=== PATIENT | female | born 1975 | race Caucasian/White ===

== ENCOUNTER 2017-07-09 16:30 | Emergency (ER) | payer OTHER, SELFPAY ==
[2017-07-09 16:32] VITALS: BP 168/96; PULSE 112; RESP 24; TEMP 36.6; O2SAT 97; BMI 27.1
--- NOTE | 2017-07-09 16:43 | CT_ITS ---
STUDY: CT ABDOMEN AND PELVIS WITH CONTRAST REASON FOR EXAM: Female, 41 years old. Abdominal pain RADIATION DOSAGE (If Supplied By Facility): CTDIvol = ( 16.31 ) mGy, DLP = ( 654.50 ) mGycm TECHNIQUE: Transaxial images were obtained from the dome of the diaphragm to the symphysis pubis without oral contrast. 100 ml of Isovue 300 contrast was administered. Sagittal and coronal images were reconstructed. Individualized dose optimization techniques were used for this CT. COMPARISON: None. FINDINGS: There is minor atelectasis within the dependent portion of the lungs.. The visualized portions of the heart are within normal limits. Mildly prominent fatty infiltrated liver without mass or bile duct dilatation. Gallbladder not visualized consistent with prior cholecystectomy.. Normal spleen. Normal pancreas. Normal bilateral adrenal glands. Multiple nonobstructing bilateral renal calculi. No evidence for renal mass.. Postsurgical changes in the right lower quadrant status post resection of the descending colon. There is diffuse fecal retention within much of the colon. No evidence for acute inflammatory changes at this time. Normal visualized stomach. Normal small intestine. Normal colon. The appendix is visualized and appears normal. Normal abdominal aorta. Normal inferior vena cava. Normal retroperitoneum. Incompletely distended mildly thick-walled bladder likely of no significance. Uterus not visualized consistent with hysterectomy Small right ovarian cyst measuring approximately 1.6 cm. . Large left adnexal mass measuring approximate 5.5 x 4.4 cm demonstrating multicystic component. Normal abdominal wall. Normal osseous structures. CT/Abdomen/Pelvis W IV Cont ONLY IMPRESSION: Postsurgical changes status post cholecystectomy resection of the right colon and hysterectomy. No evidence for acute inflammatory changes at this time.. There is a small right ovarian cyst and a large complex multicystic left ovary which is new finding since prior study. Would recommend pelvic sonogram for further evaluation Other findings as above Electronically Signed: Cristian Restrepo MD at 18:31 EDT , Service support ,
[2017-07-09] MEDS: HYDROmorphone 1 MG/ML Syringe IV ×2 (16:57→19:28)
[2017-07-09] MEDS: Ondansetron 4 MG/2 ML Vial IV (16:57)
[2017-07-09] MEDS: 0.9% Normal Saline 1,000 ML 1000 ML IV (16:58)
[2017-07-09 17:22] LABS: Absolute Lymphocyte Count 2.06 X10^3/ul (0.83-4.51); Absolute Neutrophil Count 3.5 X10^3/uL (2.0-7.7); Basophil# 0.01 X10^3/uL; Basophil% 0.2 % (0-1); Eosinophil# 0.09 X10^3/uL; Eosinophils% 1.4 % (0-5); Hematocrit 40.4 % (37-47); Hemoglobin 13.5 g/dl (12.0-15.0); Lymphocyte # 2.06 X10^3/ul (4.0); Lymphocyte % 32.6 % (19-41); Mean Corp Hgb Conc 33.4 g/gl (32-36); Mean Corpuscular Volume 92.9 fL (81-99); Mean Platelet Vol. 11.4 fl (6.2-12.0); Monocyte# 0.67 X10^3/uL; Monocyte% 10.6 % (0-10); Neutrophil # 3.48 X10^3/uL (2.7-7.7); Platelet Count 221 K/mm3 (150-450); RBC Distribution Width CV 13.2 % (11.6-14.6); RBC Distribution Width SD 44.5 fl (35.1-43.9); Red Blood Count 4.35 M/mm3 (4.2-5.4); White Blood Count 6.3 K/mm3 (4.4-11.0)
[2017-07-09 17:28] LABS: POSITIVE COUNT NO; POSITIVE DIFFERENTIAL NO; POSITIVE MORPHOLOGY NO
[2017-07-09 17:31] LABS: ALB/GLOB Ratio 1.1 RATIO (0.9-2.4); AST(SGOT) 17 U/L (15-37); Alanine Aminotransfer ALT/SGPT 20 U/L (13-56); Alkaline Phosphatase 73 U/L (45-117); Anion Gap 9 (5-15); BUN 11 mg/dL (7-18); BUN/Creat Ratio 13.5 RATIO (10-20); Calcium,Total 8.7 mg/dL (8.5-10.1); Chloride 106 mmol/L (98-107); Creatinine, Serum 0.81 mg/dL (0.55-1.02); EST Glomerular Filtration Rate 82 mL/min (>60); Est Glom Filt Rate - Afr Amer 99 mL/min (>60); Globulin 3.5 g/dL (2.2-4.2); Glucose 99 mg/dL (74-106); Protein, Total 7.5 g/dL (6.4-8.2); Sodium Level 139 mmol/L (136-145)
[2017-07-09 17:38] VITALS: BP 125/71; PULSE 62; RESP 16; O2SAT 97
--- NOTE | 2017-07-09 17:41 | ED.VISSUMM ---
- ER Visit Summary Date of Service: 07/09/17 Chief Complaint: Sudden onset abdominal pain History of Present Illness: The patient is a 41 F presents to the emergency department with sudden onset abdominal pain. Patient states that she had a move her bowels. She states that shortly after, she had a sharp stabbing pain just in the suprapubic area. She states she cannot get comfortable. She states she has never had pain like this before. The patient does have a history of Crohn's disease. She did have Remicade infusion last week. She states that she has had some mild diarrhea. She denies any vomiting. She denies any fevers or chills. There is been no blood in the bowel movements. She states this is very different than pain that she has had with her Crohn's. Physical Examination: Vital signs reviewed General: Well-nourished, well-developed Head: Normocephalic, atraumatic Eyes: Pupils equal and reactive, extraocular muscles intact Neck, supple, no lymphadenopathy Heart: Regular rate and rhythm Respiratory: No distress, clear bilaterally Abdomen: Soft, tender in the suprapubic area without rebound or guarding, nondistended, no peritoneal signs Back: Nontender Extremities: Nontender, no edema, no cords Skin: Normal color no rash Neuro: Alert and oriented, no focal or lateralizing deficits Test Results: [] Emergency Department Course and Treatment: IV was established. The patient was given Dilaudid and had almost complete resolution of her abdominal pain. With her history, I did obtain a CT of her abdomen and pelvis. Prior to the read, I did review it myself. She did appear to have a large left ovarian cyst. I wanted to rule out torsion. The patient was sent for ultrasound. Ultrasound shows normal vascular flow. There is no evidence of torsion. It is a 6 x 5 x 5 cm complex cyst. The patient has seen Dr. Ang Trinidad in the past. I did discuss the case with her. The patient is going to be seen tomorrow in the office at 1240. She will be prescribed analgesics for pain control. I did retirement plan counselor the patient that if her pain returns at any time, she needs to return immediately to rule out torsion. She is comfortable with this plan of care and will be discharged home. Treatment Plan: [] Disposition: Discharge Impression: 1. Complex left ovarian cyst This note was generated with Dragon dictation software. It may contain incorrect words, spelling, and punctuation that were not noted in review of the chart prior to signing ED Disposition - Plan for ED Patient: Disposition: Home or Assisted Living Chief Complaint: Abd Pain Instructions: ED Cyst Ovarian Prescriptions: Hydrocodone Bitart/Apap 5-325 [[place] 5/325] 1 tab PO Q4H PRN PRN 3 Days #12 tab PRN Reason: Pain Referrals: Manda Morales MD [STAFF PHYSICIAN] - Additional Instructions: Appointments tomorrow at 1240
--- NOTE | 2017-07-09 17:42 | ED.RN ---
PT STATES SHE HAS HAD HYSTERECTOMY, NO CHANCE OF , HISTORY UPDATED TO REFLECT HYSTERECTOMY, MD NOTIFIED.
[2017-07-09 17:50] LABS: Lactic Acid 0.7 mmol/L (0.4-2.0)
[2017-07-09 18:24] VITALS: BP 138/74; PULSE 72; RESP 15; O2SAT 98
--- NOTE | 2017-07-09 18:27 | US_ITS ---
STUDY: ULTRASOUND TRANSVAGINAL CLINICAL: Female, 41 years old. Left lower quadrant pain and ovarian mass TECHNIQUE: Transvaginal COMPARISON: CT of abdomen and pelvis on July 09, 2017 FINDINGS: Uterus not visualized status post hysterectomy Normal right ovary, measuring 3.6 x 3 x 2.7 cm. There is a cyst measuring 2 x 1.7 x 1.5 cm. Enlarged left ovary, measuring 6.6 x 5.8 x 5.1 cm. There are multiple cysts the largest measuring 4.6 x 3.3 x 2.8 cm demonstrating septations and solid nodular component There is no free fluid in the pelvis. US/Transvaginal Non- IMPRESSION: Large left ovary demonstrating multiple cysts one of which demonstrates a large solid component. Possibility of neoplasm is not excluded. This may be better assessed with contrast-enhanced MRI if indicated Electronically Signed: Cristian Restrepo MD at 20:20 EDT , Service support ,
[2017-07-09 18:35] LABS: Bacteria 0 SEEN /hpf (None Seen); Mucous, Urine 0 SEEN /hpf (<or=2+); Red Blood Cells-Urine 0 SEEN /hpf (0-5); White Blood Cells 0 SEEN /hpf (0-5)
[2017-07-09 19:02] LABS: Color, Urine Yellow (Yellow); Glucose, Dipstick Normal (Normal); Internal QC Validated? YES +Cl - CLEAR BKGD; Ketone-Dipstick Negative (Negative); Leukocyte Esterase-Dipstick Negative /ul (Negative); Nitrite-Dipstick Negative (Negative); Occult Blood-Urine 10 /ul (Negative); Pregnancy, Urine Negative Negative; Protein-Dipstick Negative (Negative); Urine Bilirubin Dipstick Negative (Negative); Urine Clarity Clear (Clear); Urine Urobilinogen Normal (Normal)
[2017-07-09 19:08] LABS: Squamous Epithelial Cells - UA 0-5 SEEN /hpf (5-10)
[2017-07-09 19:33] VITALS: BP 111/67; PULSE 67; RESP 16; O2SAT 95
--- NOTE | 2017-07-09 20:02 | ED.RN ---
PT FEELS ITCHY AFTER SECOND DOSE MD ESPERANZA NOTIFIED, BENADRYL ORDERED.
[2017-07-09] MEDS: DiphenhydrAMINE 50 MG/ML Syringe 25 MG IV (20:05)
[2017-07-09 21:27] VITALS: BP 115/70; PULSE 58; RESP 18; O2SAT 96
[2017-07-09] MEDS: HYDROcodone Bitartrate/Apap 5/325 Tablet PO (21:29)
[2017-07-09] MEDS: Ondansetron ODT 4 MG Tablet PO (21:30)
== END 2017-07-09 21:34 | disposition home or self-care (01) ==
LOC: ED 18:48
PROVIDERS: Emergency Provider Emergency Medicine; Family Provider Family Medicine; PCP Family Medicine
DX: N83.202 Unspecified ovarian cyst, left side (principal); K50.90 Crohn's disease, unspecified, without complications
CPT/HCPCS: 74177; 76830; 80053; 81001; 81025; 83605; 85025; 93976; 96361; 96374; 96375; 96376; 99284; J7030; Q9967; A4216; J2405

== ENCOUNTER → 2017-07-10 14:05 | Outpatient (CLI) | payer OTHER, SELFPAY ==
[2017-07-10 17:20] LABS: Absolute Lymphocyte Count 2.18 X10^3/ul (0.83-4.51); Absolute Neutrophil Count 2.3 X10^3/uL (2.0-7.7); Basophil# 0.02 X10^3/uL; Basophil% 0.4 % (0-1); Eosinophil# 0.13 X10^3/uL; Eosinophils% 2.5 % (0-5); Hematocrit 39.2 % (37-47); Hemoglobin 12.6 g/dl (12.0-15.0); Lymphocyte # 2.18 X10^3/ul (4.0); Lymphocyte % 42.7 % (19-41); Mean Corp Hgb Conc 32.1 g/gl (32-36); Mean Corpuscular Hgb 30.7 pg (27.0-32.0); Mean Corpuscular Volume 95.4 fL (81-99); Mean Platelet Vol. 11.8 fl (6.2-12.0); Monocyte# 0.51 X10^3/uL; Neutrophil # 2.26 X10^3/uL (2.7-7.7); Neutrophil % 44.2 % (47-70); Platelet Count 205 K/mm3 (150-450); RBC Distribution Width CV 13.5 % (11.6-14.6); RBC Distribution Width SD 46.8 fl (35.1-43.9); Red Blood Count 4.11 M/mm3 (4.2-5.4); White Blood Count 5.1 K/mm3 (4.4-11.0)
[2017-07-10 18:16] LABS: POSITIVE COUNT NO; POSITIVE DIFFERENTIAL NO; POSITIVE MORPHOLOGY NO
[2017-07-13 11:46] LABS: Cancer Antigen 125 19.2 U/mL (0.0-38.1)
== END ==
PROVIDERS: Family Provider Family Medicine; PCP Family Medicine; Visit Provider Obstetrics & Gynecology
DX: N83.209 Unspecified ovarian cyst, unspecified side (principal)
CPT/HCPCS: 36415; 85025; 86304

== ENCOUNTER 2017-07-16 14:13 | Day surgery (SDC) | payer OTHER, SELFPAY ==
[2017-07-16] VITALS (8 sets, daily range): BP systolic 92–144; BP diastolic 59–81; PULSE 56–68; RESP 16–18; TEMP 36.3–36.9; O2SAT 92–100; BMI 26.6
--- NOTE | 2017-07-16 | FLU_PTH ---
PATIENT: DEVIKA WINN [place] [facility] [facility] [place][id number] AGE/SX: 41/F ROOM: RE07/16/[address]: Dr. Manda Morales MD : 1975 BED: DIS: 07/16/2017 SPEC #: [id number] RECD: 07/17/17 09:51 STATUS: TALIA KEVEN #: [id number] SHREYA: 07/16/17 00:[address]: Manda Morales DEPT: CYTOLOGY RECD BY: Marcio Garcia ENTERED: 07/17/17 09:52 SP TYPE: Fluid OTHR DR: Dr. Lindsey Bain MD Tissues: Pelvis, NOS Procedures: Pap Stain (control) Special Stain Group II Surgery Specimen Level IV Cell Block Cytospin Fluid HEADER OPERATION: Laparoscopic salpingo-oophorectomy, lysis of adhesions PRE-OP DIAGNOSIS: Left adnexal mass TISSUE SUBMITTED: Cell washings/fluid for cytology DIAGNOSIS CYTOLOGY Left adnexal mass, cell washings for cytology (cytospin and cell block): Negative for malignant cells. AM:niharika 07/18/17 COMMENT The specimen contains benign mesothelial cells. CYTOLOGY STUDY Slides are reviewed. CYTOLOGY GROSS Received is 10 ml of red cloudy fluid labeled with the patient's name and and designated per the requisition as cell washings. Submitted for cytology preparation including cell block. / 07/17/17 TC:5 CPT: 48489, 90614
--- NOTE | 2017-07-16 05:06 | HP.PCM_ITS ---
- Problem List (1) Acute pelvic pain, female Status: Acute (2) Complex ovarian cyst Status: Acute History and Physical Date of Admission: 07/16/17 Vital Signs 07/10/17 Height 5 ft 6 in 07/10/17 Weight: 168 lb 2 oz 07/10/17 Body Mass Index (BMI) 27.1 07/10/17 Blood Pressure 102/47 Intake Visit Reasons: ER follow up Accompanied by: Is patient in pain?: Yes Pain scale (1-10): 5 Allergies No Known Allergies Allergy (Verified 07/15/17 09:00) Medications Infliximab [Remicade] 400 mg IV QMONTH 07/16/15 [History Confirmed 07/15/17] Azathioprine [Imuran] 50 mg PO DAILY@0800 02/01/16 [History Confirmed 07/15/17] Chlordiazepoxide/Clidinium Br [Librax Capsule] 1 ea PO Q6H PRN PRN 07/09/17 [ History Confirmed 07/15/17] Colestipol Tablet [Colestid Tablet] 2 gm PO BID 07/09/17 [History Confirmed ] Ondansetron [Zofran Odt] 4 mg PO Q8H PRN PRN 07/09/17 [History Confirmed ] cyanocobalamin (vit B-12) 1,000 mcg/mL injection kit 1,000 mcg IM ONCE 07/10/17 [History Confirmed 07/15/17] oxycodone-acetaminophen 5 mg-325 mg tablet 1 tab PO Q4H PRN #20 tab 07/10/17 [ Rx Confirmed 07/15/17] Post menopausal: No Patient : No : No PFSH Medical History Crohn disease (Chronic) Abnormal Pap smear of cervix (Acute) ileum resection (Resolved) Surgical History Hx of lithotripsy (Resolved) S/P (Resolved) S/P appendectomy (Resolved) S/P cholecystectomy (Resolved) S/P partial hysterectomy (Resolved) Family History Brother Lymphoma Father Cancer Social History Smoking Status: Never smoker alcohol intake: never substance use type: does not use caffeine: Yes what type of physical activity do you participate in: none seatbelt use: always do you feel safe at home: Yes 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 she was seen in the ER and was diagnosed with a complex ovarian cyst that has normal doppler flow. her pain has limited her activities and continues to bother her. Pregancy History 4 Elective abortions Hx Para 4 Spontaneous abortions Hx # Term Pregnancies Ectopic pregnancies Hx # Pregnancies Multiple births # of living children Past Pregnancies Del. Date Name GA/Weeks Outcome Route Bth Weight Infant Gen Labor Lgth Anesthesia Del Locatn Provider FOB Unknown Daina-1996 Unknown Margoth-1998 Unknown Sid-1999 Unknown Lotus-2007 ROS Const Constitutional: Denies poor appetite, headache(s), fever(s), increased appetite , weight gain, weight loss or fatigue Cardio Card: Denies chest pain Resp Resp: Denies dyspnea or cough GI GI: Reports as per HPI, nausea and abdominal pain; denies vomiting or constipation : Reports as per HPI; denies urinary urgency, vaginal discharge, urinary frequency, vaginal itching, vaginal odor, vaginal dryness, urinary incontinence, urinary hesitancy, difficulty urinating, painful urination or nipple discharge Skin Skin/Breast: Denies breast lump, breast pain, breast skin changes, nipple discharge or change in hair Exam Const General: cooperative, healthy appearing, comfortable, no acute distress, well developed Nutritional Appearance: average body habitus Orientation: alert [facility] Head: normal to inspection, normocephalic Neck Neck: normal visual inspection, trachea midline Thyroid: thyroid normal Resp Effort & Inspection: normal respiratory effort GI Inspection: normal to inspection, non-distended Palpation: soft, no hepatosplenomegaly, tender Skin General: no rashes or lesions noted Assessment & Plan Problems 1. Complex ovarian cyst N83.299 2. Acute pelvic pain, female R10.2 Plan discussed laparoscopic removal of the ovarian cyst after checking a CA 125 to confirm supsicion of benign etiology. reviewed torsion precautions. discussed surgical risks including risks of anesthesia, infection, bleeding, injury to bowel, bladder or blood vessels, and patient wishes to proceed with surgery. Medications New: oxycodone-acetaminophen 5-325 mg (Percocet) 1 tab PO Q4H PRN pain Coding Level of Care Code Off vis,est,level 4 Diagnoses Complex ovarian cyst N83.299 Acute pelvic pain, female R10.2 07/16/17- i have seen the patient and reviewed the h and p and there are no clinically significant updates
[2017-07-16 14:39] LABS: Internal QC Validated? YES +Cl - CLEAR BKGD; Pregnancy, Urine Negative Negative
--- NOTE | 2017-07-16 15:45 | OV_PTH ---
PATIENT: DEVIKA WINN LOC: [facility] – [place] U#:[id number] AGE/SX: 41/F ROOM: RE07/16/[address]: Dr. Manda Morales MD : 1975 BED: DIS: 07/16/2017 SPEC #: [id number] RECD: 07/17/17 09:51 STATUS: TALIA MILLERCinda #: [id number] SHREYA: 07/16/17 15:[address]: Manda Morales DEPT: SURGICAL PATHOLOGY RECD BY: Marcio Garcia ENTERED: 07/17/17 09:51 SP TYPE: OVARY OTHR DR: Dr. Lindsey Bain MD Tissues: Left ovary Procedures: Surgery Specimen Level V HEADER OPERATION: Laparoscopic salpingo-oophorectomy, lysis of adhesions PRE-OP DIAGNOSIS: Left adrenal mass TISSUE SUBMITTED: Left tube and ovary MICROSCOPIC DIAGNOSIS Left tube and ovary, salpingo-oophorectomy: Serous cystadenofibroma. Tubo-ovarian adhesions and benign paratubal cyst. AM:niharika 07/18/17 MICROSCOPIC DESCRIPTION Slides are reviewed. GROSS DESCRIPTION Received in fixative is one container labeled with the patient's name and designated left tube and ovary. The specimen consists of a smooth, glistening, cystic ovary measuring 4.7 x 3.5 x 2.2 cm. Adherent to this is what appears to be a portion of fallopian tube measuring 4 cm in length and 0.8 cm in average diameter. The entire external surface of the specimen is inked. Serial sections reveal multiple cysts ranging in size from 0.2 to 2.2 cm and containing clear fluid. The fallopian tube contains a Filshie-type clip that is intact. Erisa Attorney sections are submitted in four cassettes. / AM:niharika 07/17/17 TC:5 [facility]: [id number]
[2017-07-16] MEDS: Bupivacaine 0.25% 30 ML Vial (16:42)
--- NOTE | 2017-07-16 17:08 | PCM.DC.TUB ---
Discharge Diet: No Restrictions - Increase fluid intake for the next 48 hours. Discharge Activity: Return to Normal Activity, May Drive - when you are no longer taking narcotic pain medications., May Shower, May Take a Tub Bath - in 7 days Additional Activity Instructions:: Ambulate often the next week after surgery. Nothing in the vagina for 5 days. Call your doctor if your incision/area has: Continuous Slow Oozing, Sudden Increased Bleeding, Increased Pain/ Swelling, Increased Redness, Foul Smelling Discharge Call your doctor if you observe: Fever of 101 or Higher Allergies/Adverse Reactions: Allergies No Known Allergies Allergy (Verified 07/15/17 09:00) Medications to take at Discharge Infliximab [Remicade] 400 mg IV QMONTH 07/16/15 Azathioprine [Imuran] 50 mg PO DAILY@0800 02/01/16 Chlordiazepoxide/Clidinium Br [Librax Capsule] 1 ea PO Q6H PRN PRN 07/09/17 Colestipol Tablet [Colestid Tablet] 2 gm PO BID 07/09/17 Ondansetron [Zofran Odt] 4 mg PO Q8H PRN PRN 07/09/17 cyanocobalamin (vit B-12) 1,000 mcg/mL injection kit 1,000 mcg IM ONCE 07/10/17 oxycodone-acetaminophen 5 mg-325 mg tablet 1 tab PO Q4H PRN #20 tab 07/10/17 Oxycodone HCl/Acetaminophen [Percocet 5-325] 1 - 2 tablet PO Q4H PRN PRN #15 tablet 07/16/17 The following prescriptions were given: Oxycodone HCl/Acetaminophen [Percocet 5-325] 1 - 2 tablet PO Q4H PRN PRN #15 tablet PRN Reason: Pain Primary Care Physician: Lindsey Bain MD [Primary Care Provider] - Please Follow Up With: Manda Morales MD - [phone]
--- NOTE | 2017-07-17 04:38 | PCM.OPRPT ---
Problem List (1) Acute pelvic pain, female Status: Acute (2) Complex ovarian cyst Status: Acute Report of Operation Date of Procedure: 07/16/17 Pre-Operative Diagnosis: left complex ovarian cyst acute female pelvic pain Post-Operative Diagnosis: same severe adhesions Surgery/Procedure Performed:: laparoscopic lysis of adhesions left salpingooophorectomy Description of Surgical Findings:: omental to anterior abdominal wall adhesions, epiploic to vaginal cuff adhesions, sigmoid-left ovarian adhesions, ovarian-pelvic side wall adhesions. metal fabricator welder: Therese Alvarado Type of Anesthesia:: General Specimen's removed: left fallopian tube and ovary Estimated Blood Loss (mL): minimal Fluids Replaced: crystalloid Description of Procedure: Patient was taken in the operating room and was placed under general anesthesia was prepped and draped in normal sterile fashion in the dorsal lithotomy position. Bladder was drained of clear urine and SCDs were on preoperatively. Uterus was sounded and a uterine manipulator was placed after dilating. Attention was then paid to the abdominal portion of the procedure and palmers point was identified after an og tube was placed and stomach emptied, and the area was injected with Marcaine and after a 5 mm incision was made and the Veress needle was entered into the abdomen confirmed to be intra-abdominal with a low opening pressure of less than 5 mmHg. Abdomen was insufflated with CO2 gas and a 5 mm optical trocar was placed under direct visualization. A right and left lower quadrant 5 mm port was placed under direct visualization. severe omental to anterior abdominal wall adhesions were noted and taken down with the ligasure device. washings collected the left ovary was freed from all adhesions with the ureter visualized to be inferolateral to the areas of ligation. see operative findings for additional description. vaginal cuff to epiploic adhesions were taken down bluntly with hydrodissection and the ligasure device. The IP ligament was ligated with the ligasure device. remaining attachment of the ovary to the side wall was removed. ovary placed in a bag through an enlarged llq port site and removed without complication. fernando hernandez used to close the fascial port site of the llq incision. All instruments removed from the abdomen after gas was desufflated. Port sites were closed with 3-0 Monocryl Steri's and op sites were applied. All instruments removed from the vagina and patient was awoken and taken recovery in stable condition. Grafts/Implants Used: jose d
--- NOTE | 2017-07-17 04:55 | OP.PCM_ITS ---
Problem List (1) Acute pelvic pain, female Status: Acute (2) Complex ovarian cyst Status: Acute Report of Operation Date of Procedure: 07/16/17 Pre-Operative Diagnosis: left complex ovarian cyst acute female pelvic pain Post-Operative Diagnosis: same severe adhesions Surgery/Procedure Performed:: laparoscopic lysis of adhesions left salpingooophorectomy Description of Surgical Findings:: omental to anterior abdominal wall adhesions, epiploic to vaginal cuff adhesions , sigmoid-left ovarian adhesions, ovarian-pelvic side wall adhesions. oncology nurse navigator: Therese Alvarado Type of Anesthesia:: General Specimen's removed: left fallopian tube and ovary Estimated Blood Loss (mL): minimal Fluids Replaced: crystalloid Description of Procedure: Patient was taken in the operating room and was placed under general anesthesia was prepped and draped in normal sterile fashion in the dorsal lithotomy position. Bladder was drained of clear urine and SCDs were on preoperatively. Uterus was sounded and a uterine manipulator was placed after dilating. Attention was then paid to the abdominal portion of the procedure and palmers point was identified after an og tube was placed and stomach emptied, and the area was injected with Marcaine and after a 5 mm incision was made and the Veress needle was entered into the abdomen confirmed to be intra-abdominal with a low opening pressure of less than 5 mmHg. Abdomen was insufflated with CO2 gas and a 5 mm optical trocar was placed under direct visualization. A right and left lower quadrant 5 mm port was placed under direct visualization. severe omental to anterior abdominal wall adhesions were noted and taken down with the ligasure device. washings collected the left ovary was freed from all adhesions with the ureter visualized to be inferolateral to the areas of ligation. see operative findings for additional description. vaginal cuff to epiploic adhesions were taken down bluntly with hydrodissection and the ligasure device. The IP ligament was ligated with the ligasure device. remaining attachment of the ovary to the side wall was removed. ovary placed in a bag through an enlarged llq port site and removed without complication. fernando hernandez used to close the fascial port site of the llq incision. All instruments removed from the abdomen after gas was desufflated. Port sites were closed with 3-0 Monocryl Steri's and op sites were applied. All instruments removed from the vagina and patient was awoken and taken recovery in stable condition. Grafts/Implants Used: jose d
== END 2017-07-16 18:45 | disposition home or self-care (01) ==
LOC: SDC 14:16 → AC 14:17
PROVIDERS: Anesthesiology; Family Provider Family Medicine; PCP Family Medicine; Visit Provider Obstetrics & Gynecology
PROC: (CPT 58720; principal; 2017-07-16 15:30)
DX: D27.1 Benign neoplasm of left ovary (principal); N83.8 Other noninflammatory disorders of ovary, fallopian tube and broad ligament; R10.2 Pelvic and perineal pain; N73.6 Female pelvic peritoneal adhesions (postinfective); K50.90 Crohn's disease, unspecified, without complications; Z90.49 Acquired absence of other specified parts of digestive tract; Z90.710 Acquired absence of both cervix and uterus
CPT/HCPCS: 00840; 58661; 81025; 86850; 86900; 88108; 88305; 88307; 88313; J7120; J2405

== ENCOUNTER → 2017-08-08 09:55 | Outpatient (CLI) | payer OTHER, SELFPAY | PROVIDERS: Family Provider Family Medicine; PCP Family Medicine | DX: R19.7 Diarrhea, unspecified (principal) | CPT/HCPCS: 87493 ==

== ENCOUNTER 2017-09-11 12:53 | Emergency (ER) | payer OTHER, SELFPAY ==
[2017-09-11 12:54] VITALS: BP 141/84; PULSE 96; RESP 18; TEMP 36.6; O2SAT 99; BMI 25.8
--- NOTE | 2017-09-11 13:27 | CT_ITS ---
STUDY: CT ABDOMEN AND PELVIS WITHOUT CONTRAST REASON FOR EXAM: Female, 42 years old. Abdominal pain, nausea, diarrhea. Prior appendectomy, , cholecystectomy, partial hysterectomy, still has right ovary. History of sponge kidney, Crohn's with resection. RADIATION DOSAGE (If Supplied By Facility): CTDIvol = ( 8.8 ) mGy, DLP = ( 444.91 ) mGycm TECHNIQUE: Transaxial images were obtained from the dome of the diaphragm to the symphysis pubis without oral contrast, and without intravenous contrast. Sagittal and coronal images were reconstructed. Individualized dose optimization techniques were used for this CT. COMPARISON: 07/09/2017, 02/01/2016 CT abdomen and pelvis. FINDINGS: Body wall soft tissues: No acute process. Osseous structures: No acute process. Inferior chest: Minimal pericardial fluid, likely physiologic. No cardiomegaly. Normal distal esophagus. Clear lung bases. Hepatobiliary: Generalized hepatic steatosis with hepatomegaly, craniocaudal right liver 18.7 cm. Gallbladder absent. Nondilated biliary tree and common duct. Pancreas: No acute process. Spleen: Normal. Adrenal glands: Normal. Urogenital: Calyceal and pyramidal calcifications throughout each kidney consistent with medullary sponge kidney. Normal renal cortex. Nondilated collecting systems with normal bilateral ureters. Normal urinary bladder. Uterus absent. There appears to be bilateral ovarian tissue. On the right, partially cystic structure along the mesial salpinx measures approximately 3.0 x 3.3 x 2.3 cm. On the left, a similar structure measures approximately 2.6 x 2.9 x 2.0 cm. It appears that both ovaries are present despite the history of left oophorectomy. Alternatively this could be a remnant paraovarian cyst on the left. Consider ultrasound pelvis characterization. No acute intrapelvic process is evident. Pelvic floor and sidewalls and retroperitoneum: No mass or adenopathy. Vasculature: No acute process. Stomach: No acute process. Small bowel and mesentery: No acute process. Large bowel: Right lower quadrant ileocolic anastomosis. There is fatty infiltration the wall of the ascending colon, and to a limited extent within the hepatic flexure, transverse colon, splenic flexure, descending colon, consistent with prior inflammation without evidence at this time of acute colitis. There is also creeping fat surrounding the noninflamed sigmoid consistent with prior episodes of colitis. Sigmoid and rectum are acutely normal. Free fluid or free air: None. CT/Abdomen/Pelvis without Cont IMPRESSION: 1. Hepatic steatosis with hepatomegaly. 2. Medullary sponge kidney with no evidence of recent calculus passage. 3. The colon exhibits evidence of prior colitis (fatty infiltration of the wall) without convincing evidence of acute colitis (no acute inflammatory stranding surrounding the large bowel and no pronounced abnormal thickening of the wall). 4. No other acute intra-abdominal process is evident. Electronically Signed: Ayaan Rust, at 14:11 EDT Tel , Service support ,
[2017-09-11 13:38] LABS: Absolute Lymphocyte Count 2.25 X10^3/ul (0.83-4.51); Absolute Neutrophil Count 4.4 X10^3/uL (2.0-7.7); Basophil# 0.01 X10^3/uL; Basophil% 0.1 % (0-1); Eosinophil# 0.06 X10^3/uL; Eosinophils% 0.8 % (0-5); Hematocrit 41.2 % (37-47); Hemoglobin 13.6 g/dl (12.0-15.0); Lymphocyte # 2.25 X10^3/ul (4.0); Lymphocyte % 30.2 % (19-41); Mean Corpuscular Hgb 30.1 pg (27.0-32.0); Mean Corpuscular Volume 91.2 fL (81-99); Mean Platelet Vol. 11.1 fl (6.2-12.0); Monocyte# 0.67 X10^3/uL; Neutrophil # 4.44 X10^3/uL (2.7-7.7); Neutrophil % 59.8 % (47-70); POSITIVE COUNT NO; POSITIVE DIFFERENTIAL NO; POSITIVE MORPHOLOGY NO; Platelet Count 204 K/mm3 (150-450); RBC Distribution Width SD 42.9 fl (35.1-43.9); Red Blood Count 4.52 M/mm3 (4.2-5.4); White Blood Count 7.4 K/mm3 (4.4-11.0)
[2017-09-11] MEDS: 0.9% Normal Saline 1,000 ML 1000 ML IV (13:41)
[2017-09-11] MEDS: Ondansetron 4 MG/2 ML Vial IV (13:41)
[2017-09-11] MEDS: morphine 8 MG/ML Syringe IV (13:41)
--- NOTE | 2017-09-11 13:42 | ED.DCSUM_ITS ---
- ER Visit Summary Date of Service: 09/11/17 Chief Complaint: [] Constant diarrhea history of Crohn's disease History of Present Illness: The patient is a 42 F [] history of Crohn's disease history of surgery related to Crohn's, cholecystectomy appendectomy she is on Remicade via caustic strength inspector in the [place] area monthly she is on other oral meds for the Crohn's she reports that about 6 weeks or so she had a ovarian cyst resection and after that procedure she developed persistent copious diarrhea that will not natty she has had no vomiting she is able to eat and drink but every time she eats she has immediate bowel movements no blood per rectum no fever no abdominal pain other than the usual chronic crampy pain that she has she indicates she spoke with her caustic strength inspector in [place] today and as she is scheduled to go on vacation to [place] soon he sent her to the emergency department to have a CAT scan Physical Examination: [] Aleman her vital signs are within normal range she is resting comfortably she is at baseline now she does not feel that she is having a bowel movement so she has no pain head neck chest unremarkable the abdomen is soft there is no tenderness rebound guarding or megaly does complain of lower abdominal cramps with the bowel movements but again no blood upper lower extremities are normal Test Results: [] Emergency Department Course and Treatment: [] All the above will obtain screening labs IV fluids will contact the caustic strength inspector and proceed with CT scan recommended as above, the patient's creatinine slightly elevated at 1.14 , all of her other studies including CAT scan are unremarkable we did speak with her attending caustic strength inspector in [place] at [phone] Dr. Edwards, she can be discharged home to follow-up in the office and follow the discharge instructions had given earlier, she has received 2 L of IV fluids she is feeling well she wants to go home she understands to continue to manage her care via her caustic strength inspector and his instructions they apparently have recently made changes to her medication regimen and she will inform her physicians of any improvements or changes and return for change in symptoms Treatment Plan: [] Disposition: [] Home stable Impression: [] Diarrhea history of Crohn's disease This note was generated with [employer] software. It may contain incorrect words, spelling, and punctuation that were not noted in review of the chart prior to signing ED Disposition - Plan for ED Patient: Chief Complaint: Nausea/Vomiting/Diarrhea Referrals: Lindsey Bain MD [Primary Care Provider] -
[2017-09-11 13:49] LABS: AST(SGOT) 14 U/L (15-37); Alanine Aminotransfer ALT/SGPT 20 U/L (13-56); Albumin, Serum 3.5 g/dL (3.2-5.0); Alkaline Phosphatase 68 U/L (45-117); Anion Gap 7 (5-15); BUN 11 mg/dL (7-18); BUN/Creat Ratio 9.6 RATIO (10-20); Calcium,Total 8.7 mg/dL (8.5-10.1); Chloride 105 mmol/L (98-107); Creatinine, Serum 1.14 mg/dL (0.55-1.02); EST Glomerular Filtration Rate 55 mL/min (>60); Est Glom Filt Rate - Afr Amer 67 mL/min (>60); Estimated Creatinine Clearance 59.57 ml/min; Globulin 3.4 g/dL (2.2-4.2); Glucose 94 mg/dL (74-106); Lipase 118 U/L (73-393); Potassium 3.8 mmol/L (3.5-5.1); Protein, Total 6.9 g/dL (6.4-8.2); Sodium Level 138 mmol/L (136-145)
[2017-09-11 13:50] LABS: White Blood Cells 0 SEEN /hpf (0-5)
[2017-09-11 13:51] LABS: Color, Urine Yellow (Yellow); Glucose, Dipstick Normal (Normal); Ketone-Dipstick Negative (Negative); Leukocyte Esterase-Dipstick Negative /ul (Negative); Nitrite-Dipstick Negative (Negative); Occult Blood-Urine 10 /ul (Negative); Protein-Dipstick Negative (Negative); Specific Gravity, Urine 1.015 (1.002-1.030); Urine Bilirubin Dipstick Negative (Negative); Urine Clarity Clear (Clear); Urine Urobilinogen Normal (Normal)
[2017-09-11 13:56] LABS: Bacteria RARE /hpf (None Seen); Mucous, Urine 1+ /hpf (<or=2+); Red Blood Cells-Urine 0-5 SEEN /hpf (0-5); Squamous Epithelial Cells - UA 5-10 SEEN /hpf (5-10)
[2017-09-11 14:22] LABS: Erythrocyte Sedimentation Rate 4 mm/hr (0-20)
[2017-09-11 14:26] LABS: CRP < 2.90 mg/L (0.0-3.0)
[2017-09-11] MEDS: 0.9% Normal Saline 1,000 ML 999 ML IV (14:49)
[2017-09-11 15:00] VITALS: RESP 16
--- NOTE | 2017-09-11 15:51 | ED.DEP ---
ED Disposition - Plan for ED Patient: Chief Complaint: Nausea/Vomiting/Diarrhea Instructions: ED Vomiting Diarrhea Nonspecific Ad Referrals: Lindsey Bain MD [Primary Care Provider] - Additional Instructions: These follow-up with her physicians in [place] and follow all their instructions
[2017-09-11 15:52] VITALS: BP 108/59; PULSE 58; RESP 16; O2SAT 100
--- NOTE | 2017-09-11 16:12 | ED.RN ---
REVIEWED D/C INSTRUCTIONS, FOLLOW UP CARE, AND S/S THAT WOULD WARRANT A RETURN TO THE ED WITH PT. PT VERBALIZED AN UNDERSTANDING AND DENIES FURTHER QUESTIONS FOR THIS RN. PT SKIN P/W/D, RESP EVEN AND UNLABORED, PT A&O X 3, NO DISTRESS NOTED. PT AMBULATED OUT OF ED, GAIT STEADY.
== END 2017-09-11 16:13 | disposition home or self-care (01) ==
PROVIDERS: Emergency Provider Emergency Medicine; Family Provider Family Medicine; PCP Family Medicine
DX: R19.7 Diarrhea, unspecified (principal); K50.90 Crohn's disease, unspecified, without complications; Z79.899 Other long term (current) drug therapy
CPT/HCPCS: 74176; 80048; 80053; 81001; 83690; 85025; 85652; 86140; 99283; J7030; A4216; J2405

== ENCOUNTER → 2017-12-01 15:41 | Outpatient (CLI) | payer OTHER, SELFPAY | LOC: LAB 15:44 → LABSPEC 15:45 | PROVIDERS: Family Provider Family Medicine; PCP Family Medicine; Visit Provider Obstetrics & Gynecology | DX: N89.8 Other specified noninflammatory disorders of vagina (principal) | CPT/HCPCS: 87070; 87106; 87205 ==

== ENCOUNTER → 2018-01-15 10:54 | Outpatient (CLI) | payer OTHER, SELFPAY ==
[2018-01-15] VITALS (7 sets, daily range): BP systolic 110–126; BP diastolic 64–80; PULSE 72–88; RESP 16–18; TEMP 36.7–37.3; O2SAT 97–100; BMI 27.3
== END ==
PROVIDERS: Family Provider Family Medicine; PCP Family Medicine
DX: K50.00 Crohn's disease of small intestine without complications (principal)
CPT/HCPCS: J7050; A4216; Q5103

== ENCOUNTER → 2018-02-13 11:34 | Outpatient (CLI) | payer OTHER, SELFPAY ==
[2018-02-13 11:41] VITALS: BP 121/81; PULSE 83; RESP 18; TEMP 37.1; O2SAT 98; BMI 27.3
[2018-02-13 12:22] VITALS: BP 110/79; RESP 16
[2018-02-13 12:37] VITALS: BP 103/72; PULSE 82; RESP 16
[2018-02-13 12:53] VITALS: BP 111/73; PULSE 80; RESP 16; TEMP 37.4; O2SAT 100
[2018-02-13 13:08] VITALS: BP 117/82; PULSE 81; RESP 16; TEMP 37.1; O2SAT 97
[2018-02-13 14:30] VITALS: BP 112/79
== END ==
PROVIDERS: Family Provider Family Medicine; PCP Family Medicine
DX: K50.00 Crohn's disease of small intestine without complications (principal)
CPT/HCPCS: 96365; J7050; A4216; Q5103

== ENCOUNTER → 2018-03-12 11:19 | Outpatient (CLI) | payer OTHER, SELFPAY ==
[2018-02-13 11:41] VITALS: BMI 27.3
[2018-03-12 11:38] VITALS: BP 128/76; PULSE 86; RESP 16; TEMP 36.7
== END ==
PROVIDERS: Family Provider Family Medicine; PCP Family Medicine
DX: K50.00 Crohn's disease of small intestine without complications (principal)
CPT/HCPCS: 96365; J7050; A4216; Q5103

== ENCOUNTER → 2018-04-09 11:26 | Outpatient (CLI) | payer OTHER, SELFPAY ==
[2018-02-13 11:41] VITALS: BMI 27.3
[2018-04-09 12:12] VITALS: BP 109/64; PULSE 84; RESP 16; TEMP 36.8
--- OUTSIDE RECORDS SUMMARY | 2018-06-14 03:05 | XMS RPT_ITS ---
:1975 Author Organization OHIP Support Name Relationship Address Phone NAVEED WINN Unavailable [address] + [place] [address] [employer] Unavailable [address] + [place] [address] NAVEED WINN Unavailable [address] + [place] [address] [employer] Unavailable [address] + [place] [address] NAVEED WINN Unavailable [address] + [place] [address] [employer] Unavailable [address] + [place] [address] NAVEED WINN Unavailable [address] + [place] [address] [employer] Unavailable [address] + [place] [address] NAVEED WINN Unavailable [address] + [place] [address] DEVIKA WINN Unavailable Unavailable Unavailable NAVEED WINN Unavailable [address] + [place] [address] [employer] Unavailable [address] + [place] [address] NAVEED WINN Unavailable [address] + [place] [address] [employer] Unavailable [address] + [place] [address] NAVEED WINN Unavailable [address] + [place] [address] DEVIKA WINN Unavailable Unavailable Unavailable NAVEED WINN Unavailable [address] + [place] [address] DEVIKA WINN Unavailable Unavailable Unavailable NAVEED WINN Unavailable [address] + [place] [address] DEVIKA WINN Unavailable Unavailable Unavailable NAVEED WINN Unavailable [address] + [place] [address] DEVIKA WINN Unavailable Unavailable Unavailable NAVEED WINN Unavailable [address] + [place] [address] TATUM, DEVIKA Unavailable Unavailable Unavailable TATUM, NAVEED Unavailable [address] + [place] [address] DEVIKA WINN Unavailable Unavailable Unavailable NAVEED WINN Unavailable [address] + [place] [address] [employer] Unavailable [address] + [place] [address] TATUMNAVEED Unavailable [address] + [place] [address] TATUM DEVIKA Unavailable Unavailable Unavailable NAVEED WINN Unavailable [address] + [place] [address] [employer] Unavailable [address] + [place] [address] TATUMNAVEED Unavailable [address] + [place] [address] [employer] Unavailable [address] + [place] [address] TATUMNAVEED Unavailable [address] + [place] [address] [employer] Unavailable [address] + [place] [address] TATUMNAVEED Unavailable [address] + [place] [address] TATUM DEVIKA Unavailable Unavailable Unavailable NAVEED WINN Unavailable [address] + [place] [address] [employer] Unavailable [address] + [place] [address] TATUMNAVEED Unavailable [address] + [place] [address] [employer] Unavailable [address] + [place] [address] NAVEED WINN Unavailable [address] + [place] [address] [employer] Unavailable [address] + [place] [address] NAVEED WINN Unavailable [address] + [place] [address] [employer] Unavailable [address] + [place] [address] TATUMNAVEED Unavailable [address] + [place] [address] [employer] Unavailable [address] + [place] [address] TATUMNAVEED Unavailable [address] + [place] [address] TATUM DEVIKA Unavailable Unavailable Unavailable NAVEED WINN Unavailable [address] + [place] [address] TATUM, DEVIKA Unavailable Unavailable Unavailable NAVEED WINN Unavailable [address] + [place] [address] TATUM, DEVIKA Unavailable Unavailable Unavailable NAVEED WINN Unavailable [address] + [place] [address] TATUM DEVIKA Unavailable Unavailable Unavailable Care Team Providers Name Role Phone ROSSY STUART Attending Unavailable CAROLYN ARZATE Referring Unavailable HAANAMARIASHAW, SUDHA CANTOR Attending Unavailable STANCAROLYN HUNG P Referring Unavailable HAWILFREDOAW, Zander CANTOR Attending Unavailable STANCAROLYN HUNG P Referring Unavailable HACKSHAW, Zander CANTOR Attending Unavailable STANICHCAROLYN P Referring Unavailable HACKSHAW, NATALYH SAKSHI Attending Unavailable STANICHCAROLYN P Referring Unavailable HACKSHAW, KVH SAKSHI Attending Unavailable STANCAROLYN HUNG P Referring Unavailable HAANAMARIASHAW, KVH SAKSHI Attending Unavailable STANCAROLYN HUNG P Referring Unavailable HAANAMARIASHAW, KVH SAKSHI Attending Unavailable STANICHCAROLYN P Referring Unavailable STANICHCAROLYN P Attending Unavailable SELF, SELF Referring Unavailable STANICHCAROLYN P Attending Unavailable SELF, SELF Referring Unavailable ROSSY STUART Attending Unavailable STANICH, CAROLYN P Referring Unavailable HACKSHAW, KVH SAKSHI Attending Unavailable STANICH, CAROLYN P Referring Unavailable HACKSHAW, KVH SAKSHI Attending Unavailable CAROLYN ARZATE Referring Unavailable MANDA TABARES Attending Unavailable MANDA TABARES Referring Unavailable [facility] Un[facility] Unavailable MANDA TABARES Attending Unavailable MANDA TABARES Referring Unavailable Kolby Young Attending Unavailable [facility] Unavailable Marcanthony, Manda Attending Unavailable [facility] Anson Referring Unavailable [facility] Unavailable Marcanthony, Manda Attending Unavailable [facility] Unavailable Marcanthony, Manda Attending Unavailable [facility] Unavailable Marcanthony, Manda Referring Unavailable Marcanthony, Manda Attending Unavailable Marcanthony, Manda Referring Unavailable [facility] Unavailable Marcanthony, Manda Consulting Unavailable MANDA TABARES Attending Unavailable [facility] Unavailable MANDA TABARES Referring Unavailable MarcanthonyManda Attending Unavailable [facility] Referring Unavailable Marcanthony, Manda Attending Unavailable [facility] Referring Unavailable [facility] Unavailable [facility] Unavailable Ganga Miller Attending Unavailable Marcanthony, Manda Attending Unavailable [facility] Referring Unavailable [facility] Unavailable Marcanthony, Manda Attending Unavailable Marcanthony, Manda Referring Unavailable [facility] Unavailable MANDA TABARES Referring Unavailable [facility] Unavailable MANDA TABARES Consulting Unavailable MANDA TABARES Attending Unavailable [facility] Unavailable MANDA TABARES Attending Unavailable MANDA TABARES Referring Unavailable PROBLEMS PROBLEMS DATE TYPE CONDITION / CODE ATTENDING STATUS SOURCE 02/09/2018 Unknown K50.00 - Crohn's MANDA TABARES Active [place] [facility] small Community intestine without Hospital complications / Repository K50.00(ICD-10) 12/01/2017 Unknown N89.8 - Other Marcanthony, Active [place] specified [facility] noninflammatory Hospital disorders of vagina Repository / N89.8(ICD-10) 12/01/2017 Unknown B37.3 - Candidiasis Marcanthony, Active [place] of vulva and vagina [facility] / B37.3(ICD-10) Hospital Repository 02/07/2017 Admitting Irritable bowel CAROLYN ARZATE Active [facility] diagnosis syndrome with P [place] diarrhea / [facility] K58.0(ICD-10) Center Repository 04/17/2015 Admitting Crohn's disease of CAROLYN ARZATE Active [facility] diagnosis small intestine [facility] without [facility] complications / Center K50.00(ICD-10) Repository 08/08/2017 Unknown N83.299 - Other Marcanthony, Active [place] ovarian cyst, [facility] unspecified side / Hospital N83.299(ICD-10) Repository 08/08/2017 Unknown R10.2 - Pelvic and Marcanthony, Active [place] perineal pain / [facility] R10.2(ICD-10) Hospital Repository 07/17/2017 Unknown G89.18 - Other acute Marcanthony, Active [place] postprocedural pain [facility] / G89.18(ICD-10) Hospital Repository 07/10/2017 Unknown N83.209 - Hannah, Active [place] Unspecified ovarian [place] Community cyst, unspecified Hospital side / Repository N83.209(ICD-10) PROCEDURES PROCEDURES No Procedure Records FoundRESULTS RESULTS 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 [place] [address] OFFICE VISIT Date of Service: 12/01/17 MR#: [id number] Acct: [id number] Name: DEVIKA WINN Rep #: [id number] : 1975 Provider: Manda Morales MD Age/Sex: 42/F Location: [facility] Status: Signed Intake Vital Signs12/01/17 Height 5 ft 6 in 12/01/17 Weight: 166 lb 4 oz 12/01/17 Body Mass Index (BMI) 26.8 12/01/17 Blood Pressure 120/78 Intake Visit Reasons: Yeast infection Chief Complaint: yeast infection Top Waddy Required: No Is patient in pain?: No Allergies No Known Allergies Allergy (Verified 12/01/17 10:35) Medications Infliximab [Remicade] 400 mg IV QMONTH 07/16/15 [History Confirmed 09/11/17] Azathioprine [Imuran] 50 mg PO DAILY@0800 02/01/16 [History Confirmed 09/11/17] Chlordiazepoxide/Clidinium Br [Librax Capsule] 1 ea PO BID PRN 07/09/17 [History Confirmed 09/11/17] Colestipol Tablet [Colestid Tablet] 2 gm PO BID 07/09/17 [History Confirmed 09/11/17] Ondansetron [Zofran Odt] 4 mg PO Q8H PRN PRN 07/09/17 [History Confirmed 09/11/17] cyanocobalamin (vit B-12) 1,000 mcg/mL injection kit 1,000 mcg IM ONCE 07/10/17 [History Confirmed 09/11/17] fluconazole 150 mg tablet 150 mg PO .COMPLEX #2 tab 09/12/17 [Rx] cyclobenzaprine 10 mg tablet 10 mg PO TID 12/01/17 [History Confirmed 12/01/17] nystatin-triamcinolone 100,000 unit/gram-0.1 % topical ointment 1 applic TOPICAL TID #15 g 12/01/17 [Rx Confirmed 12/01/17] Is last menstrual period known: No Post menopausal: No Patient : No : No PFSH Medical History Crohn disease (Chronic) Abnormal Pap smear of cervix (Acute) iliam resection (Resolved) Surgical History H/O laparoscopy (Acute 07/17/17) Hx of lithotripsy (Resolved) S/P (Resolved) S/P appendectomy (Resolved) S/P cholecystectomy (Resolved) S/P partial hysterectomy (Resolved) Family History Brother Lymphoma Father Cancer Social History Smoking Status: Never smoker alcohol intake: never substance use type: does not use caffeine: Yes what type of physical activity do you participate in: none seatbelt use: always do you feel safe at home: Yes 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 she has been treated in the past with diflucan with no improvement this last time. she isn't diabetic. she is on immunosuppresants. Pregancy History 4 Elective abortions Hx Para 4 Spontaneous abortions Past Pregnancies Del. DateName GA/Weeks Outcome Route Bth WeighInfant GeLabor LgtAnesthesiDel LocatProvider FOB t n h a n ROS GI GI: Reports system reviewed and no additional complaints, except as docu : Reports as per HPI Exam Const General: cooperative, well developed, healthy appearing External Female Exam: externally tender, erythema (bilateral labia majora, irritation and thinning no lesions), no lesions Speculum Exam - Vagina: abnormal vaginal discharge white and frothy Assessment AND Plan Problems 1. Vaginal irritation N89.8 nystatin/triamcinolone ordered. handout given 2. Recurrent candidiasis of vagina B37.3 sensitivities ordered. if sensitive to diflucan recommend 6 month weekly diflucan treatment Plan see problem list comments. education given. studies ordered. Orders Orders: Medications New: Coding Level of Care Code Off vis,est,level 4 Diagnoses Vaginal irritation N89.8 Recurrent candidiasis of vagina B37.3 12/01/17 1110 <Electronically signed by Manda Morales MD> Date Manda Morales MD Cosigner Signature: Date (if applicable) CC: Observed: 12/01/2017 Status: F Source: [place] CULTURE, GENITAL 12:00 AM [facility] COMPREHENSIVE REPOSITORY Reason for Exam: vaginal discharge Comments: RUN SENSITIVITES Gram Stain Score = 1 Interpretation: 0-3 Normal, 4-6 Intermediate, 7-10 Positive BV Gram Stain 4+ Gram positive cocci 3+ Gram positive rods 4+ White Blood Cells No Gram negative diplococci No Yeast Like Organisms Gent Cult Comp No Gardnerella, Neisseria or beta-hemolytic Streptococcus isolated. Antifungal Suscep Amphotericin B TL 0.5 ug/mL There are no CLSI standards for interpretation of this Drug/Organism combination. Fluconazole TL 0.5 ug/mL Susceptible TESTING PERFORMED AT [facility]. ORIGINAL REPORT ON FILE IN LAB CONTAINS ADDITIONAL TEST SITE INFORMATION. ORGANISM 1: Celia albicans Amount Growth 1+ Performed By: #### M100.1600 #### [facility] [address] [facility] [place], [place], [address] MISCELLANEOUS LAB Collected: 12/01/2017 Status: F Source: [place] JACOBO 12:00 AM [facility] REPOSITORY Order Comment: SENSITIVITY ADDED ON PER ORIGINAL ORDER REQUEST FOR ANTIFUNGAL AMPHOTERICIN AND FLUCONAZOLE Comments: RUN SENSITIVITES Test(s) Ordered: FLUCONAZOLE [id number],AMPHOTERICIN LC 284796 TYPE CODE TESTS RESULT OUT OF RANGE REFERENCE UNITS LAB L801.1541 Normal [facility] [place] Result Comment: SEE [id number] FOR ANTIFUNGAL SENSITIVITY PANEL Performed By: #### L801.1541 #### [facility] [address] [place], [address] IRON*TIBC (TRANSFERRIN) Collected: 09/29/2017 Status: F Source: [facility] 12:00 PM [facility] REPOSITORY TYPE CODE TESTS RESULT OUT OF REFERENCE UNITS RANGE LAB IRON 40-174 mcg/dL Iron 98 LAB TIBC 298-596 mcg/dL Total Iron Binding Capacity 401 LAB IRONS 20-55 % *Iron*Saturation 24 LAB HAHN 200-400 mg/dL Transferrin 269 Performed By: #### IRBC, FERIB, B12B, D25OH, QFTB #### [facility] [address] [place] [address] #### YMMA #### Reference lab information reported with result FERRITIN Collected: 09/29/2017 Status: F Source: [facility] 12:00 PM [facility] REPOSITORY TYPE CODE TESTS RESULT OUT OF RANGE REFERENCE UNITS LAB FERI 10-291 ng/mL High *Ferritin 450 Performed By: #### IRBC, FERIB, B12B, D25OH, QFTB #### [facility] [address] [place] [address] #### YMMA #### Reference lab information reported with result VITAMIN B12 Collected: 09/29/2017 Status: F Source: [facility] 12:00 [facility] REPOSITORY TYPE CODE TESTS RESULT OUT OF RANGE REFERENCE UNITS LAB B12 211-911 pg/mL 316 *Vitamin*B12 Result Comment: Testing of Methylmalonic Acid and Intrinsic Factor Blocking Antibody are recommended if clinical suspicion for pernicious anemia due to B12 deficiency is high for patients with intermediate B12 levels (211 to 400 pg/mL) to rule out spurious heterophile antibodies. Please contact lab for add on requests at [phone]. Performed By: #### IRBC, FERIB, B12B, D25OH, QFTB #### [facility] [address] [place] [address] #### YMMA #### Reference lab information reported with result 25-OH VITAMIN D Collected: 09/29/2017 Status: F Source: [facility] 12:00 PM [facility] REPOSITORY TYPE CODE TESTS RESULT OUT OF REFERENCE UNITS RANGE LAB D25OH 30.0-100.0 ng/mL Low 25-OH Vitamin 21.9 D Total Result Comment: <10 Deficiency 10-29 Insufficiency 30-100 Optimal Level >100 Possible Toxicity Performed By: #### IRBC, FERIB, B12B, D25OH, QFTB #### [facility] [id number] [place] [address] #### YMMA #### Reference lab information reported with result QUANTIFERON TB GOLD IN Collected: 09/29/2017 Status: F Source: [facility] 12:00 PM [facility] REPOSITORY TYPE CODE TESTS RESULT OUT OF REFERENCE UNITS RANGE LAB QFT Negative M. Tuberculosis by Negative Quantiferon LAB QFTUB2 IU/mL M. tuberculosis 0.00 Interferon Yusuf Result Comment: The M. Tuberculosis antigen levels cannot be correlated to stage or degree of infection, response to therapy or likelihood for progression to active disease. Results from QuantiFERON TB Gold must be used in conjunction with individual epidemiological history, current medical status, and results of other diagnostic evaluation. Performed By: #### IRBC, FERIB, B12B, D25OH, QFTB #### [place] [address] #### YMMA #### Reference lab information reported with result METHYLMALONIC ACID Collected: 09/29/2017 Status: F Source: [facility] 12:00 PM [facility] REPOSITORY TYPE CODE TESTS RESULT OUT OF REFERENCE UNITS RANGE LAB YMMA 87-318 nmol/L Methylmalonic Acid 148 Result Comment: (NOTE) Test Performed by [facility], [address] [place] [address] Fabiano Skinner M.D., Ph.D., Director of Laboratories , [facility] [id number] Test sent to [facility] Performed By: #### IRBC, FERIB, B12B, D25OH, QFTB #### [place] [id number] #### YMMA #### Reference lab information reported with result CBC,PLATELET,DIFFERENTIAL - CCL Collected: Status: F Source: [facility] 09/25/2017 11:42 [facility] REPOSITORY TYPE CODE TESTS RESULT OUT OF REFERENCE UNITS RANGE LAB ALB 3.5-5.0 g/dL Albumin 4.0 LAB BILD <0.3 mg/dL Bilirubin Direct 0.1 LAB BILT <1.5 mg/dL Bilirubin Total 0.6 LAB ALP 32-126 U/L Alkaline Phosphatase 58 LAB ALT 9-48 U/L Low ALT 8 LAB AST 14-40 U/L AST 14 LAB TP 6.4-8.3 g/dL Total Protein 6.4 Performed By: #### CBCDFC #### [facility] [address] [place] [address] [place] [address] EMERGENCY DEPARTMENT Observed: 09/11/2017 Status: F Source: [place] SUMMARY 5:36 PM [facility] REPOSITORY [facility] Medical Records Department [address] [place] [address] Emergency Department Summary 09/11/17 1340 MR#: [id number] Acct: [id number] Name: DEVIKA WINN Anamaria Rep #: [id number] : 1975 42 From: Ganga Miller MD PCP: Lindsey Bain MD Status: DEP ER - ER Visit Summary Date of Service: 09/11/17 Chief Complaint: [] Constant diarrhea history of Crohn's disease History of Present Illness: The patient is a 42 F [] history of Crohn's disease history of surgery related to Crohn's, cholecystectomy appendectomy she is on Remicade via instrument inspector in the [place] area monthly she is on other oral meds for the Crohn's she reports that about 6 weeks or so she had a ovarian cyst resection and after that procedure she developed persistent copious diarrhea that will not natty she has had no vomiting she is able to eat and drink but every time she eats she has immediate bowel movements no blood per rectum no fever no abdominal pain other than the usual chronic crampy pain that she has she indicates she spoke with her instrument inspector in [place] today and as she is scheduled to go on vacation to [place] soon he sent her to the emergency department to have a CAT scan Physical Examination: [] Aleman her vital signs are within normal range she is resting comfortably she is at baseline now she does not feel that she is having a bowel movement so she has no pain head neck chest unremarkable the abdomen is soft there is no tenderness rebound guarding or megaly does complain of lower abdominal cramps with the bowel movements but again no blood upper lower extremities are normal Test Results: [] Emergency Department Course and Treatment: [] All the above will obtain screening labs IV fluids will contact the instrument inspector and proceed with CT scan recommended as above, the patient's creatinine slightly elevated at 1.14, all of her other studies including CAT scan are unremarkable we did speak with her attending instrument inspector in [place] at [phone] Dr. Arzate, she can be discharged home to follow-up in the office and follow the discharge instructions had given earlier, she has received 2 L of IV fluids she is feeling well she wants to go home she understands to continue to manage her care via her instrument inspector and his instructions they apparently have recently made changes to her medication regimen and she will inform her physicians of any improvements or changes and return for change in symptoms Treatment Plan: [] Disposition: [] Home stable Impression: [] Diarrhea history of Crohn's disease This note was generated with [employer] dictation software. It may contain incorrect words, spelling, and punctuation that were not noted in review of the chart prior to signing ED Disposition - Plan for ED Patient: Chief Complaint: Nausea/Vomiting/Diarrhea Referrals: Lindsey Bain MD [Primary Care Provider] - What to do if you have Problems For any increased pain, shortness of breath, bleeding, nausea or vomiting, chest pain, or any unexpected problems, contact your Primary Care Provider. Call [facility] ([phone]) or report to the closest Emergency Room. Call 911 if necessary. 09/11/17 0835 <Electronically signed by Ganga Miller MD> Date Ganga Miller MD Cosigner Signature (If Indicated): Date CC: Lindsey Bain MD DISCHARGE INSTRUCTION Observed: 09/11/2017 Status: F Source: [place] 3:51 PM [facility] REPOSITORY [facility] Medical Records Department [address] [place] [address] Discharge Instruction 09/11/17 1551 MR#: [id number] Acct: [id number] Name: DEVIKA WINN Rep #: [id number] : 1975 42 From: Ganga Miller MD PCP: Lindsey Bain MD Status: REG ER ED Disposition - Plan for ED Patient: Chief Complaint: Nausea/Vomiting/Diarrhea Instructions: ED Vomiting Diarrhea Nonspecific Ad Referrals: Lindsey Bain MD [Primary Care Provider] - Additional Instructions: These follow-up with her physicians in [place] and follow all their instructions What to do if you have Problems For any increased pain, shortness of breath, bleeding, nausea or vomiting, chest pain, or any unexpected problems, contact your Primary Care Provider. Call [facility] ([phone]) or report to the closest Emergency Room. Call 911 if necessary. 09/11/17 1551 <Electronically signed by Ganga Miller MD> Date Ganga Miller MD Cosigner Signature (If Indicated): Date CC: Lindsey Bain MD URINALYSIS, COMPLETE Collected: 09/11/2017 Status: F Source: [place] 1:44 PM [facility] REPOSITORY Order Comment: Order Date: 09/11/17 How was Urine Obtained? CLEAN CATCH TYPE CODE TESTS RESULT OUT OF RANGE REFERENCE UNITS LAB L400.3000 Yellow COLOR Normal Yellow LAB L400.3050 Clear Normal CLARITY Clear LAB L400.3200 Normal mg/dl Normal GLUCOSE, UR Normal LAB L400.3300 Negative mg/dL Normal BILIRUBIN URINE Negative LAB L400.3400 Negative mg/dl Normal KETONE UR Negative LAB L400.3465 1.002-1.030 Normal SP.GR. DIPSTX 1.015 LAB L400.3550 5.0 - 8.0 pH UR Normal 6.0 LAB L400.3600 Negative mg/dl PROT Normal DIPSTX Negative LAB L400.3700 Normal mg/dl Normal UROBILI Normal LAB L400.3750 Negative Normal NITRITE UR Negative LAB L400.3780 Negative /ul High 10 OCCULT BLOOD-UR LAB L400.3800 Negative /ul LEUK Normal ESTERASE Negative LAB L400.4050 0-5 /hpf WBC 0 Normal SEEN LAB L400.4100 0-5 /hpf Normal RBC-UA 0-5 SEEN LAB L400.4150 5-10 /hpf SQUAM Normal EPI 5-10 SEEN LAB L400.4300 None Seen /hpf Normal BACTERIA RARE LAB L400.4350 <or=2+ /hpf 1+ Normal MUCUS, URINE Performed By: #### L400.0001 #### [facility] [address] [facility] [place], [address] ABDOMEN/PELVIS WITHOUT Observed: 09/11/2017 Status: F Source: [place] CONT 1:28 PM [facility] REPOSITORY [facility] Imaging Services [address] [place] [address] Abdomen/Pelvis without Cont MR#: [id number] Acct: [id number] Name: TATUMDEVIKA M Rep #: [id number] : 1975 F 42 From: Ayaan Rust MD PCP: Lindsey Bain MD Status: PRE ER Study: Abdomen/Pelvis without Cont Date of Exam: 09/11/17 Exam# [id number] Ordering Dr: Ganga Miller MD STUDY: CT ABDOMEN AND PELVIS WITHOUT CONTRAST REASON FOR EXAM: Female, 42 years old. Abdominal pain, nausea, diarrhea. Prior appendectomy, , cholecystectomy, partial hysterectomy, still has right ovary. History of sponge kidney, Crohn's with resection. RADIATION DOSAGE (If Supplied By Facility): CTDIvol = ( 8.8 ) mGy, DLP = ( 444.91 ) mGycm TECHNIQUE: Transaxial images were obtained from the dome of the diaphragm to the symphysis pubis without oral contrast, and without intravenous contrast. Sagittal and coronal images were reconstructed. Individualized dose optimization techniques were used for this CT. COMPARISON: 07/09/2017, 02/01/2016 CT abdomen and pelvis. FINDINGS: Body wall soft tissues: No acute process. Osseous structures: No acute process. Inferior chest: Minimal pericardial fluid, likely physiologic. No cardiomegaly. Normal distal esophagus. Clear lung bases. Hepatobiliary: Generalized hepatic steatosis with hepatomegaly, craniocaudal right liver 18.7 cm. Gallbladder absent. Nondilated biliary tree and common duct. Pancreas: No acute process. Spleen: Normal. Adrenal glands: Normal. Urogenital: Calyceal and pyramidal calcifications throughout each kidney consistent with medullary sponge kidney. Normal renal cortex. Nondilated collecting systems with normal bilateral ureters. Normal urinary bladder. Uterus absent. There appears to be bilateral ovarian tissue. On the right, partially cystic structure along the mesial salpinx measures approximately 3.0 x 3.3 x 2.3 cm. On the left, a similar structure measures approximately 2.6 x 2.9 x 2.0 cm. It appears that both ovaries are present despite the history of left oophorectomy. Alternatively this could be a remnant paraovarian cyst on the left. Consider ultrasound pelvis characterization. No acute intrapelvic process is evident. Pelvic floor and sidewalls and retroperitoneum: No mass or adenopathy. Vasculature: No acute process. Stomach: No acute process. Small bowel and mesentery: No acute process. Large bowel: Right lower quadrant ileocolic anastomosis. There is fatty infiltration the wall of the ascending colon, and to a limited extent within the hepatic flexure, transverse colon, splenic flexure, descending colon, consistent with prior inflammation without evidence at this time of acute colitis. There is also creeping fat surrounding the noninflamed sigmoid consistent with prior episodes of colitis. Sigmoid and rectum are acutely normal. Free fluid or free air: None. CT/Abdomen/Pelvis without Cont IMPRESSION: 1. Hepatic steatosis with hepatomegaly. 2. Medullary sponge kidney with no evidence of recent calculus passage. 3. The colon exhibits evidence of prior colitis (fatty infiltration of the wall) without convincing evidence of acute colitis (no acute inflammatory stranding surrounding the large bowel and no pronounced abnormal thickening of the wall). 4. No other acute intra-abdominal process is evident. Electronically Signed: Ayaan Yocasta, at 14:11 EDT Tel , Service support , CC: MD Portia Miller; Lindsey Bain MD Superintendent [place]: Signed CBC W/DIFF, AUTOMATED Collected: 09/11/2017 Status: F Source: CROW 1:10 PM [facility] [place] REPOSITORY TYPE CODE TESTS RESULT OUT OF RANGE REFERENCE UNITS LAB L100.1000 4.4-11.0 K/mm3 Normal WBC 7.4 LAB L100.1200 4.2-5.4 M/mm3 Normal RBC 4.52 LAB L100.1300 12.0-15.0 g/dl Normal HGB 13.6 LAB L100.1400 37-47 % Normal HCT 41.2 LAB L100.1500 81-99 fL Normal MCV 91.2 LAB L100.1600 27.0-32.0 pg Normal MCH 30.1 LAB L100.1700 32-36 g/gl Normal MCHC 33.0 LAB L100.1810 11.6-14.6 % Normal RDW CV 13.0 LAB L100.1820 35.1-43.9 fl Normal RDW SD 42.9 LAB L100.1900 150-450 K/mm3 Normal PLT 204 LAB L100.2000 6.2-12.0 fl Normal MPV 11.1 LAB L100.2100 47-70 % Normal NEUT% 59.8 LAB L100.2200 19-41 % Normal LY% 30.2 LAB L100.2300 0-10 % Normal MONO% 9.0 LAB L100.2400 0-5 % Normal EO% 0.8 LAB L100.2500 0-1 % Normal BASO% 0.1 LAB L100.2550 0.0-0.9 % Normal IM GRAN % 0.100 Result Comment: IG% - Immature Granulocytes (promyelocytes, myelocytes and metamyelocytes) > 1% indicates that a LEFT SHIFT is Present. LAB L100.2620 2.0-7.7 X10 3/uL Normal Absolute Neut 4.4 LAB L100.2720 0.83-4.51 X10 3/ul Normal Absolute Lymph 2.25 Performed By: #### L100.0100 #### [facility] [address] [place], [address] BASIC METABOLIC Collected: 09/11/2017 Status: F Source: [place] PROFILE (BMP) 1:10 PM [facility] [place] REPOSITORY TYPE CODE TESTS RESULT OUT OF RANGE REFERENCE UNITS LAB L501.0100 74-106 mg/dL Normal GLU 94 Result Comment: Please note revised GLUCOSE reference range effective 2017. LAB L501.1000 7-18 mg/dL Normal BUN 11 LAB L501.1100 0.55-1.02 mg/dL High CREAT,SERUM 1.14 Result Comment: The validity of the calculated GFR AND GFRAA in patients over 70 years has not been determined. Clinical correlation is essential. LAB L501.1110 >60 mL/min Low EST GFR 55 Result Comment: Non- GFR Calc LAB L501.1115 >60 mL/min Normal EST GFR - AA 67 Result Comment: GFR Calc LAB L501.1255 ml/min Normal Estimated CRCL 59.57 LAB L501.1300 10-20 RATIO Low BUN/CRE 9.6 LAB L501.2200 8.5-10 mg/dL Normal .1 CA 8.7 LAB L501.5300 136-14 mmol/L Normal 5 NA 138 LAB L501.5600 3.5-5. mmol/L Normal 1 K 3.8 LAB L501.5900 98-107 mmol/L Normal CL 105 LAB L501.6100 21.0-3 mmol/L Normal 2.0 CO2 26.0 LAB L501.6200 5-15 Normal GAP 7 Performed By: #### L500.2500, L500.4050, L501.2450 #### [facility] [address] [place], [address] COMPREHENSIVE METABOLIC Collected: 09/11/2017 Status: F Source: CROW PROFIL 1:10 PM [facility] [place] REPOSITORY TYPE CODE TESTS RESULT OUT OF RANGE REFERENCE UNITS LAB L501.1500 6.4-8.2 g/dL Normal T PROT 6.9 LAB L501.1800 3.2-5.0 g/dL Normal ALB 3.5 LAB L501.1950 2.2-4.2 g/dL Normal GLOB 3.4 LAB L501.2000 0.9-2.4 RATIO Normal A/G 1.0 LAB L501.4100 15-37 U/L Low AST 14 LAB L501.4305 45-117 U/L Normal ALK P 68 LAB L501.4405 13-56 U/L Normal ALT 20 LAB L501.4600 0.20-1.00 mg/dL High T BILI 1.20 Performed By: #### L500.2500, L500.4050, L501.2450 #### [facility] [address] [place], [address] LIPASE Collected: 09/11/2017 Status: F Source: [place] 1:10 PM [facility] [place] REPOSITORY TYPE CODE TESTS RESULT OUT OF RANGE REFERENCE UNITS LAB L501.2450 73-393 U/L Normal LIPASE 118 Performed By: #### L500.2500, L500.4050, L501.2450 #### [facility] [address] [place], [address] ERYTHROCYTE SED RATE Collected: 09/11/2017 Status: F Source: CROW 1:10 PM [facility] [place] REPOSITORY TYPE CODE TESTS RESULT OUT OF RANGE REFERENCE UNITS LAB L102.0000 0-20 mm/hr Normal SED RATE 4 Performed By: #### L101.9900 #### [facility] [address] [place], [address] CRP Collected: 09/11/2017 Status: F Source: [place] 1:10 PM [facility] [place] REPOSITORY TYPE CODE TESTS RESULT OUT OF RANGE REFERENCE UNITS LAB L501.6710 0.0-3.0 mg/L Normal < 2.90 C-REACTIVE PROT Result Comment: C-Reactive Protein (CRP) provides useful information for the diagnosis, therapy and monitoring of inflammatory processes and associated diseases. For the evaluation of Relative Risk for Cardiovascular Disease, a High Sensitivity CRP (HSCRP) should be ordered. Performed By: #### L501.6710 #### [facility] [address] [place], [address] AREA MECHANIC OFFICE VISIT Observed: 08/08/2017 Status: F Source: CROW REPORT 12:11 PM [facility] [place] REPOSITORY [facility] [place] [address] [place] [address] OFFICE VISIT Date of Service: 08/08/17 MR#: [id number] Acct: [id number] Name: DEVIKA WINN Rep #: [id number] : 1975 Provider: Manda Morales MD Age/Sex: 41/F Location[place] [facility] [place] Status: Signed Intake Vital Signs08/08/17 Height 5 ft 6 in 08/08/17 Weight: 162 lb 8 oz 08/08/17 Body Mass Index (BMI) 26.2 08/08/17 Blood Pressure 110/77 Intake Visit Reasons: 2 WEEK POST OP Top Waddy Required: No Is patient in pain?: No Allergies No Known Allergies Allergy (Verified 08/08/17 11:50) Medications Infliximab [Remicade] 400 mg IV QMONTH 07/16/15 [History Confirmed 08/08/17] Azathioprine [Imuran] 50 mg PO DAILY@0800 02/01/16 [History Confirmed 08/08/17] Chlordiazepoxide/Clidinium Br [Librax Capsule] 1 ea PO Q6H PRN PRN 07/09/17 [History Confirmed 08/08/17] Colestipol Tablet [Colestid Tablet] 2 gm PO BID 07/09/17 [History Confirmed 08/08/17] Ondansetron [Zofran Odt] 4 mg PO Q8H PRN PRN 07/09/17 [History Confirmed 08/08/17] cyanocobalamin (vit B-12) 1,000 mcg/mL injection kit 1,000 mcg IM ONCE 07/10/17 [History Confirmed 08/08/17] Post menopausal: No Patient : No : No PFSH Medical History Crohn disease (Chronic) Abnormal Pap smear of cervix (Acute) iliam resection (Resolved) Surgical History H/O laparoscopy (Acute 07/17/17) Hx of lithotripsy (Resolved) S/P (Resolved) S/P appendectomy (Resolved) S/P cholecystectomy (Resolved) S/P partial hysterectomy (Resolved) Family History Brother Lymphoma Father Cancer Social History Smoking Status: Never smoker alcohol intake: never substance use type: does not use caffeine: Yes what type of physical activity do you participate in: none seatbelt use: always do you feel safe at home: Yes 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 DateName GA/Weeks Outcome Route Bth WeighInfant GeLabor LgtAnesthesiDel LocatProvider FOB t n h a n ROS Const Constitutional: Reports system reviewed and no additional complaints, except as docu GI GI: Denies abdominal pain, nausea, vomiting or cramping : Denies urinary frequency, vaginal dryness, vaginal discharge, urinary urgency, urinary incontinence, vaginal odor or pelvic pain Exam Const General: cooperative, healthy appearing, comfortable, no acute distress GI Inspection: normal to inspection Palpation: soft, nontender Other: Incisions: C/D/I Assessment AND Plan Problems 1. Complex ovarian cyst N83.299 2. Acute pelvic pain, female R10.2 Plan routine care fu PRN r for annuals Coding Level of Care Code No Charge Diagnoses Complex ovarian cyst N83.299 Acute pelvic pain, female R10.2 08/08/17 1211 <Electronically signed by Manda Morales MD> Date [facility]ales MD [facility] Signature: Date (if applicable) CC: Observed: 08/06/2017 Status: C Source: [place] CDIFF (MOLECULAR) 10:05 PM [facility] REPOSITORY FAXED TO DR CAROLYN ARZATE AT [phone] Cdiff-Molecular Normal Reference Range = Negative C. Diff DNA Negative- No toxigenic C. Diff DNA Detected NAAT METHOD Testing was performed using nucleic acid amplification Performed By: #### M100.6796 #### [facility] [address] [place], [address] OPERATIVE REPORT Observed: 07/17/2017 Status: F Source: [place] 4:55 AM [facility] REPOSITORY [facility] Medical Records Department [address] [place] [address] Operative Report 07/17/17 0438 MR#: [id number] Acct: [id number] Name: DEVIKA WINN Rep #: [id number] : 1975 41 From: Manda Morales MD PCP: Lindsey Bain MD Status: [facility] [place] [facility] [place] Problem List (1) Acute pelvic pain, female Status: Acute (2) Complex ovarian cyst Status: Acute Report of Operation Date of Procedure: 07/16/17 Pre-Operative Diagnosis: left complex ovarian cyst acute female pelvic pain Post-Operative Diagnosis: same severe adhesions Surgery/Procedure Performed:: laparoscopic lysis of adhesions left salpingooophorectomy Description of Surgical Findings:: omental to anterior abdominal wall adhesions, epiploic to vaginal cuff adhesions, sigmoid-left ovarian adhesions, ovarian-pelvic side wall adhesions. regional driver: Therese Alvarado Type of Anesthesia:: General Specimen's removed: left fallopian tube and ovary Estimated Blood Loss (mL): minimal Fluids Replaced: crystalloid Description of Procedure: Patient was taken in the operating room and was placed under general anesthesia was prepped and draped in normal sterile fashion in the dorsal lithotomy position. Bladder was drained of clear urine and SCDs were on preoperatively. Uterus was sounded and a uterine manipulator was placed after dilating. Attention was then paid to the abdominal portion of the procedure and palmers point was identified after an og tube was placed and stomach emptied, and the area was injected with Marcaine and after a 5 mm incision was made and the Veress needle was entered into the abdomen confirmed to be intra-abdominal with a low opening pressure of less than 5 mmHg. Abdomen was insufflated with CO2 gas and a 5 mm optical trocar was placed under direct visualization. A right and left lower quadrant 5 mm port was placed under direct visualization. severe omental to anterior abdominal wall adhesions were noted and taken down with the ligasure device. washings collected the left ovary was freed from all adhesions with the ureter visualized to be inferolateral to the areas of ligation. see operative findings for additional description. vaginal cuff to epiploic adhesions were taken down bluntly with hydrodissection and the ligasure device. The IP ligament was ligated with the ligasure device. remaining attachment of the ovary to the side wall was removed. ovary placed in a bag through an enlarged llq port site and removed without complication. fernando hernandez used to close the fascial port site of the llq incision. All instruments removed from the abdomen after gas was desufflated. Port sites were closed with 3-0 Monocryl Steri's and op sites were applied. All instruments removed from the vagina and patient was awoken and taken recovery in stable condition. Grafts/Implants Used: jose d 07/17/17 0455 <Electronically signed by Manda Morales MD> Date Manda Morales MD CC: Lindsey Bain MD; Manda Morales MD Signed HISTORY AND PHYSICAL Observed: 07/16/2017 Status: F Source: [place] EXAM 5:09 PM [facility] REPOSITORY [facility] Medical Records Department [address] [place] [address] History and Physical 07/16/17 0504 MR#: [id number] Acct: [id number] Name: DEVIKA WINN Rep #: [id number] : 1975 41 From: Manda Morales MD PCP: Lindsey Bain MD Status: REG SD Y Location: [address] - Problem List (1) Acute pelvic pain, female Status: Acute (2) Complex ovarian cyst Status: Acute History and Physical Date of Admission: 07/16/17 Vital Signs 07/10/17 Height 5 ft 6 in 07/10/17 Weight: 168 lb 2 oz 07/10/17 Body Mass Index (BMI) 27.1 07/10/17 Blood Pressure 102/47 Intake Visit Reasons: ER follow up Accompanied by: Is patient in pain?: Yes Pain scale (1-10): 5 Allergies No Known Allergies Allergy (Verified 07/15/17 09:00) Medications Infliximab [Remicade] 400 mg IV QMONTH 07/16/15 [History Confirmed 07/15/17] Azathioprine [Imuran] 50 mg PO DAILY@0800 02/01/16 [History Confirmed 07/15/17] Chlordiazepoxide/Clidinium Br [Librax Capsule] 1 ea PO Q6H PRN PRN 07/09/17 [History Confirmed 07/15/17] Colestipol Tablet [Colestid Tablet] 2 gm PO BID 07/09/17 [History Confirmed 07/15/17] Ondansetron [Zofran Odt] 4 mg PO Q8H PRN PRN 07/09/17 [History Confirmed 07/15/17] cyanocobalamin (vit B-12) 1,000 mcg/mL injection kit 1,000 mcg IM ONCE 07/10/17 [History Confirmed 07/15/17] oxycodone-acetaminophen 5 mg-325 mg tablet 1 tab PO Q4H PRN #20 tab 07/10/17 [Rx Confirmed 07/15/17] Post menopausal: No Patient : No : No PFSH Medical History Crohn disease (Chronic) Abnormal Pap smear of cervix (Acute) ileum resection (Resolved) Surgical History Hx of lithotripsy (Resolved) S/P (Resolved) S/P appendectomy (Resolved) S/P cholecystectomy (Resolved) S/P partial hysterectomy (Resolved) Family History Brother Lymphoma Father Cancer Social History Smoking Status: Never smoker alcohol intake: never substance use type: does not use caffeine: Yes what type of physical activity do you participate in: none seatbelt use: always do you feel safe at home: Yes 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 she was seen in the ER and was diagnosed with a complex ovarian cyst that has normal doppler flow. her pain has limited her activities and continues to bother her. Pregancy History 4 Elective abortions Hx Para 4 Spontaneous abortions Hx # Term Pregnancies Ectopic pregnancies Hx # Pregnancies Multiple births # of living children Past Pregnancies Del. Date Name GA/Weeks Outcome Route Bth Weight Gen Labor Lgth Anesthesia Del Locatn Provider FOB Unknown Daina-1996 Unknown Margoth-1998 Unknown Sid-1999 Unknown Lotus-2007 ROS Const Constitutional: Denies poor appetite, headache(s), fever(s), increased appetite, weight gain, weight loss or fatigue Cardio Card: Denies chest pain Resp Resp: Denies dyspnea or cough GI GI: Reports as per HPI, nausea and abdominal pain; denies vomiting or constipation : Reports as per HPI; denies urinary urgency, vaginal discharge, urinary frequency, vaginal itching, vaginal odor, vaginal dryness, urinary incontinence, urinary hesitancy, difficulty urinating, painful urination or nipple discharge Skin Skin/Breast: Denies breast lump, breast pain, breast skin changes, nipple discharge or change in hair Exam Const General: cooperative, healthy appearing, comfortable, no acute distress, well developed Nutritional Appearance: average body habitus Orientation: alert [facility] Head: normal to inspection, normocephalic Neck Neck: normal visual inspection, trachea midline Thyroid: thyroid normal Resp Effort AND Inspection: normal respiratory effort GI Inspection: normal to inspection, non-distended Palpation: soft, no hepatosplenomegaly, tender Skin General: no rashes or lesions noted Assessment AND Plan Problems 1. Complex ovarian cyst N83.299 2. Acute pelvic pain, female R10.2 Plan discussed laparoscopic removal of the ovarian cyst after checking a CA 125 to confirm supsicion of benign etiology. reviewed torsion precautions. discussed surgical risks including risks of anesthesia, infection, bleeding, injury to bowel, bladder or blood vessels, and patient wishes to proceed with surgery. Medications New: oxycodone-acetaminophen 5-325 mg (Percocet) 1 tab PO Q4H PRN pain Coding Level of Care Code Off vis,est,level 4 Diagnoses Complex ovarian cyst N83.299 Acute pelvic pain, female R10.2 07/16/17- i have seen the patient and reviewed the h and p and there are no clinically significant updates 07/16/171708 <Electronically signed by Manda Morales MD> Date Manda Morales MD Cosigner Signature: Date (if applicable) CC: Lindsey Bain MD; Manda Morales MD Signed DISCHARGE INSTRUCTION Observed: 07/16/2017 Status: F Source: [place] 5:08 PM [facility] REPOSITORY [facility] Medical Records Department [address] [place] [address] Instructions for Home/Discharge Instructions 07/16/171707 MR#: [id number] Acct: [id number] Name: DEVIKA WINN Rep #: [id number] : 1975 41 From: Manda Morales MD PCP: Lindsey Bain MD Status: [place] [facility] [place] Discharge Diet: No Restrictions - Increase fluid intake for the next 48 hours. Discharge Activity: Return to Normal Activity, May Drive - when you are no longer taking narcotic pain medications., May Shower, May Take a Tub Bath - in 7 days Additional Activity Instructions:: Ambulate often the next week after surgery. Nothing in the vagina for 5 days. Call your doctor if your incision/area has: Continuous Slow Oozing, Sudden Increased Bleeding, Increased Pain/ Swelling, Increased Redness, Foul Smelling Discharge Call your doctor if you observe: Fever of 101 or Higher Allergies/Adverse Reactions: Allergies No Known Allergies Allergy (Verified 07/15/17 09:00) Medications to take at Discharge Infliximab [Remicade] 400 mg IV QMONTH 07/16/15 Azathioprine [Imuran] 50 mg PO DAILY@0800 02/01/16 Chlordiazepoxide/Clidinium Br [Librax Capsule] 1 ea PO Q6H PRN PRN 07/09/17 Colestipol Tablet [Colestid Tablet] 2 gm PO BID 07/09/17 Ondansetron [Zofran Odt] 4 mg PO Q8H PRN PRN 07/09/17 cyanocobalamin (vit B-12) 1,000 mcg/mL injection kit 1,000 mcg IM ONCE 07/10/17 oxycodone-acetaminophen 5 mg-325 mg tablet 1 tab PO Q4H PRN #20 tab 07/10/17 Oxycodone HCl/Acetaminophen [Percocet 5-325] 1 - 2 tablet PO Q4H PRN PRN #15 tablet 07/16/17 The following prescriptions were given: Oxycodone HCl/Acetaminophen [Percocet 5-325] 1 - 2 tablet PO Q4H PRN PRN #15 tablet PRN Reason: Pain Primary Care Physician: Lindsey Bain MD [Primary Care Provider] - Please Follow Up With: Manda Morales MD - [phone] 07/16/171707 <Electronically signed by Manda Morales MD> Date Manda Morales MD CC: Lindsey Bain MD OVARY (CHOOSE SIDE) Observed: 07/16/2017 Status: F Source: CROW 3:45 PM [facility] [place] REPOSITORY Patient: DEVIKA WINN : 1975 (41/F) Acct Num: [id number] Phys: Manda Morales MD Unit Num: [id number] [place] [facility] [place] Specimen: [id number] Received: 07/17/1751 Spec Type: OVARY TISSUES TISSUES: Left ovary GROSS DESCRIPTION Received in fixative is one container labeled with the patient's name and designated left tube and ovary. The specimen consists of a smooth, glistening , cystic ovary measuring 4.7 x 3.5 x 2.2 cm. Adherent to this is what appears to be a portion of fallopian tube measuring 4 cm in length and 0.8 cm in average diameter. The entire external surface of the specimen is inked. Serial sections reveal multiple cysts ranging in size from 0.2 to 2.2 cm and containing clear fluid. The fallopian tube contains a Filshie-type clip that is intact. Internal Combustion Engine Subassembler sections are submitted in four cassettes. / AM:niharika 07/17/17 TC:5 CPT: 33812 HEADER OPERATION: Laparoscopic salpingo-oophorectomy, lysis of adhesions PRE-OP DIAGNOSIS: Left adrenal mass TISSUE SUBMITTED: Left tube and ovary MICROSCOPIC DESCRIPTION Slides are reviewed. MICROSCOPIC DIAGNOSIS Left tube and ovary, salpingo-oophorectomy: Serous cystadenofibroma. Tubo-ovarian adhesions and benign paratubal cyst. AM:niharika 07/18/17 Signed Francesco [facility] 07/18/17 <signature on file> Performed By: #### POV #### [facility] [address] [place], [place], [id number] TYPE AND SCREEN Collected: 07/16/2017 Status: F Source: [place] 2:40 PM [facility] REPOSITORY Order Comment: Has pt arrived? Y Reason for Type AND Screen/Red Cells: SURGERY Type of Surgery: D AND C TYPE CODE TESTS RESULT OUT OF RANGE REFERENCE UNITS LAB B10.0800 O Normal BLOOD TYPE GEL POSITIVE LAB B100.4000 Normal Antibody NEGATIVE Screen Performed By: #### B101.7450 #### [facility] [address] [place], [place], [address] ,URINE Collected: 07/16/2017 Status: F Source: [place] 2:31 PM [facility] [place] REPOSITORY TYPE CODE TESTS RESULT OUT OF REFERENCE UNITS RANGE LAB L400.8000 Negative Normal HCGUQUAL Negative Result Comment: Very dilute urine specimens, as indicated by a low specific gravity, may not contain termite control representative levels of hCG. If is still suspected, a first morning urine specimen should be collected 48 hours later and tested. Performed By: #### L400.7600 #### [facility] [address] [place], [address] AREA MECHANIC OFFICE VISIT Observed: 07/16/2017 Status: F Source: CROW REPORT 5:02 AM [facility] REPOSITORY [facility] [address] [place] [address] OFFICE VISIT Date of Service: 07/10/17 MR#: [id number] Acct: [id number] Name: DEVIKA WINN Rep #: [id number] : 1975 Provider: Manda Morales MD Age/Sex: 41/F [place] [facility] [place]: Signed Intake Vital Signs07/10/17 Height 5 ft 6 in 07/10/17 Weight: 168 lb 2 oz 07/10/17 Body Mass Index (BMI) 27.1 07/10/17 Blood Pressure 102/47 Intake Visit Reasons: ER follow up Accompanied by: Is patient in pain?: Yes Pain scale (1-10): 5 Allergies No Known Allergies Allergy (Verified 07/15/17 09:00) Medications Infliximab [Remicade] 400 mg IV QMONTH 07/16/15 [History Confirmed 07/15/17] Azathioprine [Imuran] 50 mg PO DAILY@0800 02/01/16 [History Confirmed 07/15/17] Chlordiazepoxide/Clidinium Br [Librax Capsule] 1 ea PO Q6H PRN PRN 07/09/17 [History Confirmed 07/15/17] Colestipol Tablet [Colestid Tablet] 2 gm PO BID 07/09/17 [History Confirmed 07/15/17] Ondansetron [Zofran Odt] 4 mg PO Q8H PRN PRN 07/09/17 [History Confirmed 07/15/17] cyanocobalamin (vit B-12) 1,000 mcg/mL injection kit 1,000 mcg IM ONCE 07/10/17 [History Confirmed 07/15/17] oxycodone-acetaminophen 5 mg-325 mg tablet 1 tab PO Q4H PRN #20 tab 07/10/17 [Rx Confirmed 07/15/17] Post menopausal: No Patient : No : No PFSH Medical History Crohn disease (Chronic) Abnormal Pap smear of cervix (Acute) iliam resection (Resolved) Surgical History Hx of lithotripsy (Resolved) S/P (Resolved) S/P appendectomy (Resolved) S/P cholecystectomy (Resolved) S/P partial hysterectomy (Resolved) Family History Brother Lymphoma Father Cancer Social History Smoking Status: Never smoker alcohol intake: never substance use type: does not use caffeine: Yes what type of physical activity do you participate in: none seatbelt use: always do you feel safe at home: Yes 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 she was seen in the ER and was diagnosed with a complex ovarian cyst that has normal doppler flow. her pain has limited her activities and continues to bother her. Pregancy History 4 Elective abortions Hx Para 4 Spontaneous abortions Past Pregnancies Del. DateName GA/Weeks Outcome Route Bth WeighInfant GeLabor LgtAnesthesiDel LocatProvider FOB t n h a n ROS Const Constitutional: Denies poor appetite, headache(s), fever(s), increased appetite, weight gain, weight loss or fatigue Cardio Card: Denies chest pain Resp Resp: Denies dyspnea or cough GI GI: Reports as per HPI, nausea and abdominal pain; denies vomiting or constipation : Reports as per HPI; denies urinary urgency, vaginal discharge, urinary frequency, vaginal itching, vaginal odor, vaginal dryness, urinary incontinence, urinary hesitancy, difficulty urinating, painful urination or nipple discharge Skin Skin/Breast: Denies breast lump, breast pain, breast skin changes, nipple discharge or change in hair Exam Const General: cooperative, healthy appearing, comfortable, no acute distress, well developed Nutritional Appearance: average body habitus Orientation: alert HENMT Head: normal to inspection, normocephalic Neck Neck: normal visual inspection, trachea midline Thyroid: thyroid normal Resp Effort AND Inspection: normal respiratory effort GI Inspection: normal to inspection, non-distended Palpation: soft, no hepatosplenomegaly, tender Skin General: no rashes or lesions noted Assessment AND Plan Problems 1. Complex ovarian cyst N83.299 2. Acute pelvic pain, female R10.2 Plan discussed laparoscopic removal of the ovarian cyst after checking a CA 125 to confirm supsicion of benign etiology. reviewed torsion precautions. discussed surgical risks including risks of anesthesia, infection, bleeding, injury to bowel, bladder or blood vessels, and patient wishes to proceed with surgery. Medications New: Coding Level of Care Code Off vis,est,level 4 Diagnoses Complex ovarian cyst N83.299 Acute pelvic pain, female R10.2 07/16/17 0502 <Electronically signed by Manda Morales MD> Date Manda Morales MD Cosigner Signature: Date (if applicable) CC: FLUID/WASHING Observed: 07/16/2017 Status: F Source: [place] 12:00 [facility] REPOSITORY Patient: DEVIKA WINN : 1975 (41/F) Acct Num: [id number] Phys: Manda Morales MD Unit Num: [id number] [place] [facility] [place] Specimen: [id number] Received: 07/17/17 - 0951 Spec Type: Fluid TISSUES TISSUES: Pelvis, NOS COMMENT The specimen contains benign mesothelial cells. CYTOLOGY GROSS Received is 10 ml of red cloudy fluid labeled with the patient's name and and designated per the requisition as cell washings. Submitted for cytology preparation including cell block. / 07/17/17 TC:5 CPT: 91962, 04560 CYTOLOGY STUDY Slides are reviewed. DIAGNOSIS CYTOLOGY Left adnexal mass, cell washings for cytology (cytospin and cell block): Negative for malignant cells. AM:niharika 07/18/17 HEADER OPERATION: Laparoscopic salpingo-oophorectomy, lysis of adhesions PRE-OP DIAGNOSIS: Left adnexal mass TISSUE SUBMITTED: Cell washings/fluid for cytology Signed Francesco [facility] 07/18/17 <signature on file> Performed By: #### PFDEMARIO #### [facility] [address], [address] CBC W/DIFF, AUTOMATED Collected: 07/10/2017 Status: F Source: [place] 2:08 PM [facility] REPOSITORY TYPE CODE TESTS RESULT OUT OF RANGE REFERENCE UNITS LAB L100.1000 4.4-11.0 K/mm3 Normal WBC 5.1 LAB L100.1200 4.2-5.4 M/mm3 Low RBC 4.11 LAB L100.1300 12.0-15.0 g/dl Normal HGB 12.6 LAB L100.1400 37-47 % Normal HCT 39.2 LAB L100.1500 81-99 fL Normal MCV 95.4 LAB L100.1600 27.0-32.0 pg Normal MCH 30.7 LAB L100.1700 32-36 g/gl Normal MCHC 32.1 LAB L100.1810 11.6-14.6 % Normal RDW CV 13.5 LAB L100.1820 35.1-43.9 fl High RDW SD 46.8 LAB L100.1900 150-450 K/mm3 Normal PLT 205 LAB L100.2000 6.2-12.0 fl Normal MPV 11.8 LAB L100.2100 47-70 % Low NEUT% 44.2 LAB L100.2200 19-41 % High LY% 42.7 LAB L100.2300 0-10 % Normal MONO% 10.0 LAB L100.2400 0-5 % Normal EO% 2.5 LAB L100.2500 0-1 % Normal BASO% 0.4 LAB L100.2550 0.0-0.9 % Normal IM GRAN % 0.200 Result Comment: IG% - Immature Granulocytes (promyelocytes, myelocytes and metamyelocytes) > 1% indicates that a LEFT SHIFT is Present. LAB L100.2620 2.0-7.7 X10 3/uL Normal Absolute Neut 2.3 LAB L100.2720 0.83-4.51 X10 3/ul Normal Absolute Lymph 2.18 Performed By: #### L100.0100 #### [facility] [address] [place], [address] #### L3100.5000 #### [facility] (refer to report for specific site) refer to report for address and phone number CANCER ANTIGEN 125 Collected: 07/10/2017 Status: F Source: [place] 2:08 PM [facility] REPOSITORY TYPE CODE TESTS RESULT OUT OF RANGE REFERENCE UNITS LAB L3100.5000 0.0-38.1 U/mL Normal CA125 19.2 2303 Result Comment: Rex ECLIA methodology Performed at: [facility] [id number] Managed Services Consultant: Stevie Ortiz PhD, Phone: [phone] Performed By: #### L100.0100 #### [facility] [address] [place], [place], [address] #### L3100.5000 #### [facility] (refer to report for specific site) refer to report for address and phone number EMERGENCY DEPARTMENT Observed: 07/09/2017 Status: F Source: [place] SUMMARY 10:31 PM [facility] REPOSITORY [facility] Medical Records Department [address] [place] [address] Emergency Department Summary 07/09/17 1741 MR#: [id number] Acct: [id number] Name: DEVIKA WINN Rep #: [id number] : 1975 41 From: Kolby Young MD PCP: Anson Lantigua Status: DEP ER - ER Visit Summary Date of Service: 07/09/17 Chief Complaint: Sudden onset abdominal pain History of Present Illness: The patient is a 41 F presents to the emergency department with sudden onset abdominal pain. Patient states that she had a move her bowels. She states that shortly after, she had a sharp stabbing pain just in the suprapubic area. She states she cannot get comfortable. She states she has never had pain like this before. The patient does have a history of Crohn's disease. She did have Remicade infusion last week. She states that she has had some mild diarrhea. She denies any vomiting. She denies any fevers or chills. There is been no blood in the bowel movements. She states this is very different than pain that she has had with her Crohn's. Physical Examination: Vital signs reviewed General: Well-nourished, well-developed Head: Normocephalic, atraumatic Eyes: Pupils equal and reactive, extraocular muscles intact Neck, supple, no lymphadenopathy Heart: Regular rate and rhythm Respiratory: No distress, clear bilaterally Abdomen: Soft, tender in the suprapubic area without rebound or guarding, nondistended, no peritoneal signs Back: Nontender Extremities: Nontender, no edema, no cords Skin: Normal color no rash Neuro: Alert and oriented, no focal or lateralizing deficits Test Results: [] Emergency Department Course and Treatment: IV was established. The patient was given Dilaudid and had almost complete resolution of her abdominal pain. With her history, I did obtain a CT of her abdomen and pelvis. Prior to the read, I did review it myself. She did appear to have a large left ovarian cyst. I wanted to rule out torsion. The patient was sent for ultrasound. Ultrasound shows normal vascular flow. There is no evidence of torsion. It is a 6 x 5 x 5 cm complex cyst. The patient has seen Dr. Ang Trinidad in the past. I did discuss the case with her. The patient is going to be seen tomorrow in the office at 1240. She will be prescribed analgesics for pain control. I did debt counselor the patient that if her pain returns at any time, she needs to return immediately to rule out torsion. She is comfortable with this plan of care and will be discharged home. Treatment Plan: [] Disposition: Discharge Impression: 1. Complex left ovarian cyst This note was generated with Game [employer] dictation software. It may contain incorrect words, spelling, and punctuation that were not noted in review of the chart prior to signing ED Disposition - Plan for ED Patient: Disposition: Home or Assisted Living Chief Complaint: Abd Pain Instructions: ED Cyst Ovarian Prescriptions: Hydrocodone Bitart/Apap 5-325 [Doerun 5/325] 1 tab PO Q4H PRN PRN 3 Days #12 tab PRN Reason: Pain Referrals: Manda Morales MD [STAFF PHYSICIAN] - Additional Instructions: Appointments tomorrow at 1240 What to do if you have Problems For any increased pain, shortness of breath, bleeding, nausea or vomiting, chest pain, or any unexpected problems, contact your Primary Care Provider. Call [facility] ([phone]) or report to the closest Emergency Room. Call 911 if necessary. 07/09/172230 <Electronically signed by Kolby Young MD> Date Kolby Young MD Cosigner Signature (If Indicated): Date CC: Anson Lantigua URINALYSIS, COMPLETE Collected: 07/09/2017 Status: F Source: [place] 6:30 PM [facility] REPOSITORY Order Comment: How was Urine Obtained? CLEAN CATCH TYPE CODE TESTS RESULT OUT OF RANGE REFERENCE UNITS LAB L400.3000 Yellow COLOR Normal Yellow LAB L400.3050 Clear Normal CLARITY Clear LAB L400.3200 Normal mg/dl Normal GLUCOSE, UR Normal LAB L400.3300 Negative mg/dL Normal BILIRUBIN URINE Negative LAB L400.3400 Negative mg/dl Normal KETONE UR Negative LAB L400.3465 1.002-1.030 Normal SP.GR. DIPSTX 1.010 LAB L400.3550 5.0 - 8.0 pH UR Normal 6.0 LAB L400.3600 Negative mg/dl PROT Normal DIPSTX Negative LAB L400.3700 Normal mg/dl Normal UROBILI Normal LAB L400.3750 Negative Normal NITRITE UR Negative LAB L400.3780 Negative /ul High 10 OCCULT BLOOD-UR LAB L400.3800 Negative /ul LEUK Normal ESTERASE Negative LAB L400.4050 0-5 /hpf WBC 0 Normal SEEN LAB L400.4100 0-5 /hpf 0 Normal RBC-UA SEEN LAB L400.4150 5-10 /hpf SQUAM Normal EPI 0-5 SEEN LAB L400.4300 None Seen /hpf 0 Normal BACTERIA SEEN LAB L400.4350 <or=2+ /hpf 0 Normal MUCUS, URINE SEEN Performed By: #### L400.0001 #### [facility] [address] [place], [address] ,URINE Collected: 07/09/2017 Status: F Source: [place] 6:30 PM [facility] REPOSITORY TYPE CODE TESTS RESULT OUT OF REFERENCE UNITS RANGE LAB L400.8000 Negative Normal HCGUQUAL Negative Result Comment: Very dilute urine specimens, as indicated by a low specific gravity, may not contain termite control representative levels of hCG. If is still suspected, a first morning urine specimen should be collected 48 hours later and tested. Performed By: #### L400.7600 #### [facility] [address] [place], [address] TRANSVAGINAL Observed: 07/09/2017 Status: F Source: [place] NON- 6:28 PM [facility] REPOSITORY [facility] Imaging Services [address] [place] [address] Transvaginal Non- MR#: [id number] Acct: [id number] Name: DEVIKA WINN Rep #: [id number] : 1975 F 41 From: Cristian Restrepo MD PCP: Anson Lantigua Status: REG ER Study: Transvaginal Non- Date of Exam: 07/09/17 Exam# [id number] Ordering Dr: Kolby Young MD STUDY: ULTRASOUND TRANSVAGINAL CLINICAL: Female, 41 years old. Left lower quadrant pain and ovarian mass TECHNIQUE: Transvaginal COMPARISON: CT of abdomen and pelvis on July 09, 2017 FINDINGS: Uterus not visualized status post hysterectomy Normal right ovary, measuring 3.6 x 3 x 2.7 cm. There is a cyst measuring 2 x 1.7 x 1.5 cm. Enlarged left ovary, measuring 6.6 x 5.8 x 5.1 cm. There are multiple cysts the largest measuring 4.6 x 3.3 x 2.8 cm demonstrating septations and solid nodular component There is no free fluid in the pelvis. US/Transvaginal Non- IMPRESSION: Large left ovary demonstrating multiple cysts one of which demonstrates a large solid component. Possibility of neoplasm is not excluded. This may be better assessed with contrast-enhanced MRI if indicated Electronically Signed: Cristian Restrepo MD at 20:20 EDT , Service support , CC: Kolby Young MD; Anson Lantigua Superintendent Cemetery: Signed CBC W/DIFF, AUTOMATED Collected: 07/09/2017 Status: F Source: [place] 5:05 PM [facility] REPOSITORY TYPE CODE TESTS RESULT OUT OF RANGE REFERENCE UNITS LAB L100.1000 4.4-11.0 K/mm3 Normal WBC 6.3 LAB L100.1200 4.2-5.4 M/mm3 Normal RBC 4.35 LAB L100.1300 12.0-15.0 g/dl Normal HGB 13.5 LAB L100.1400 37-47 % Normal HCT 40.4 LAB L100.1500 81-99 fL Normal MCV 92.9 LAB L100.1600 27.0-32.0 pg Normal MCH 31.0 LAB L100.1700 32-36 g/gl Normal MCHC 33.4 LAB L100.1810 11.6-14.6 % Normal RDW CV 13.2 LAB L100.1820 35.1-43.9 fl High RDW SD 44.5 LAB L100.1900 150-450 K/mm3 Normal PLT 221 LAB L100.2000 6.2-12.0 fl Normal MPV 11.4 LAB L100.2100 47-70 % Normal NEUT% 55.0 LAB L100.2200 19-41 % Normal LY% 32.6 LAB L100.2300 0-10 % High MONO% 10.6 LAB L100.2400 0-5 % Normal EO% 1.4 LAB L100.2500 0-1 % Normal BASO% 0.2 LAB L100.2550 0.0-0.9 % Normal IM GRAN % 0.200 Result Comment: IG% - Immature Granulocytes (promyelocytes, myelocytes and metamyelocytes) > 1% indicates that a LEFT SHIFT is Present. LAB L100.2620 2.0-7.7 X10 3/uL Normal Absolute Neut 3.5 LAB L100.2720 0.83-4.51 X10 3/ul Normal Absolute Lymph 2.06 Performed By: #### L100.0100 #### [facility] [address] [place], [address] COMPREHENSIVE METABOLIC Collected: 07/09/2017 Status: F Source: [place] [facility] 5:05 PM [facility] REPOSITORY TYPE CODE TESTS RESULT OUT OF RANGE REFERENCE UNITS LAB L501.0100 74-106 mg/dL Normal GLU 99 Result Comment: Please note revised GLUCOSE reference range effective 2017. LAB L501.1000 7-18 mg/dL Normal BUN 11 LAB L501.1100 0.55-1.02 mg/dL Normal CREAT,SERUM 0.81 Result Comment: The validity of the calculated GFR AND GFRAA in patients over 70 years has not been determined. Clinical correlation is essential. LAB L501.1110 >60 mL/min Normal EST GFR 82 Result Comment: Non- GFR Calc LAB L501.1115 >60 mL/min Normal EST GFR - AA 99 Result Comment: GFR Calc LAB L501.1255 ml/min Normal Estimated CRCL 84.70 LAB L501.1300 10-20 RATIO Normal BUN/CRE 13.5 LAB L501.1500 6.4-8. g/dL Normal 2 T PROT 7.5 LAB L501.1800 3.2-5. g/dL Normal 0 ALB 4.0 LAB L501.1950 2.2-4. g/dL Normal 2 GLOB 3.5 LAB L501.2000 0.9-2. RATIO Normal 4 A/G 1.1 LAB L501.2200 8.5-10 mg/dL Normal .1 CA 8.7 LAB L501.4100 15-37 U/L Normal AST 17 LAB L501.4305 45-117 U/L Normal ALK P 73 LAB L501.4405 13-56 U/L Normal ALT 20 LAB L501.4600 0.20-1 mg/dL Normal .00 T BILI 0.60 LAB L501.5300 136-14 mmol/L Normal 5 NA 139 LAB L501.5600 3.5-5. mmol/L Normal 1 K 4.0 LAB L501.5900 98-107 mmol/L Normal CL 106 LAB L501.6100 21.0-3 mmol/L Normal 2.0 CO2 24.0 LAB L501.6200 5-15 Normal GAP 9 Performed By: #### L500.4050 #### [facility] [address] [place], [address] LACTIC ACID Collected: 07/09/2017 Status: F Source: [place] 5:05 PM [facility] REPOSITORY Order Comment: Yes/No query for Sepsis Lactate Rule Y TYPE CODE TESTS RESULT OUT OF RANGE REFERENCE UNITS LAB L503.6005 0.4-2.0 mmol/L Normal LACTIC ACID 0.7 Performed By: #### L503.6005 #### [facility] [address] [place], [address] ABDOMEN/PELVIS W IV CONT Observed: 07/09/2017 Status: F Source: [place] ONLY 4:44 PM [facility] REPOSITORY [facility] Imaging Services [address] [place] [address] Abdomen/Pelvis W IV Cont ONLY MR#: [id number] Acct: [id number] Name: DEVIKA WINN Rep #: [id number] : 1975 F 41 From: Cristian Restrepo MD PCP: Anson Lantigua Status: PRE ER Study: Abdomen/Pelvis W IV Cont ONLY Date of Exam: 07/09/17 Exam# [id number] Ordering Dr: Kolby Young MD STUDY: CT ABDOMEN AND PELVIS WITH CONTRAST REASON FOR EXAM: Female, 41 years old. Abdominal pain RADIATION DOSAGE (If Supplied By Facility): CTDIvol = ( 16.31 ) mGy, DLP = ( 654.50 ) mGycm TECHNIQUE: Transaxial images were obtained from the dome of the diaphragm to the symphysis pubis without oral contrast. 100 ml of Isovue 300 contrast was administered. Sagittal and coronal images were reconstructed. Individualized dose optimization techniques were used for this CT. COMPARISON: None. FINDINGS: There is minor atelectasis within the dependent portion of the lungs.. The visualized portions of the heart are within normal limits. Mildly prominent fatty infiltrated liver without mass or bile duct dilatation. Gallbladder not visualized consistent with prior cholecystectomy.. Normal spleen. Normal pancreas. Normal bilateral adrenal glands. Multiple nonobstructing bilateral renal calculi. No evidence for renal mass.. Postsurgical changes in the right lower quadrant status post resection of the descending colon. There is diffuse fecal retention within much of the colon. No evidence for acute inflammatory changes at this time. Normal visualized stomach. Normal small intestine. Normal colon. The appendix is visualized and appears normal. Normal abdominal aorta. Normal inferior vena cava. Normal retroperitoneum. Incompletely distended mildly thick-walled bladder likely of no significance. Uterus not visualized consistent with hysterectomy Small right ovarian cyst measuring approximately 1.6 cm. . Large left adnexal mass measuring approximate 5.5 x 4.4 cm demonstrating multicystic component. Normal abdominal wall. Normal osseous structures. CT/Abdomen/Pelvis W IV Cont ONLY IMPRESSION: Postsurgical changes status post cholecystectomy resection of the right colon and hysterectomy. No evidence for acute inflammatory changes at this time.. There is a small right ovarian cyst and a large complex multicystic left ovary which is new finding since prior study. Would recommend pelvic sonogram for further evaluation Other findings as above Electronically Signed: Cristian Restrepo MD at 18:31 EDT , Service support , CC: Kolby Young MD; Anson Lantigua Superintendent Cemetery: Signed [facility] Collected: 06/05/2017 Status: F Source: [facility] 11:39 AM [facility] REPOSITORY TYPE CODE TESTS RESULT OUT OF REFERENCE UNITS RANGE LAB ALT 9-48 U/L ALT 15 LAB AST 14-40 U/L AST 19 LAB ALB 3.5-5.0 g/dL Albumin 4.1 LAB ALP 32-126 U/L Alkaline Phosphatase 60 LAB BILD <0.3 mg/dL Bilirubin Direct 0.1 LAB BILT <1.5 mg/dL Bilirubin Total 0.5 LAB TP 6.4-8.3 g/dL Total Protein 6.6 Performed By: #### LIVPE, CBCDFE #### [address] [address] CBC WITH DIFF EAST Collected: 06/05/2017 Status: F Source: [facility] 11:39 AM [facility] REPOSITORY TYPE CODE TESTS RESULT OUT OF REFERENCE UNITS RANGE LAB WBC 3.98-10.04 K/uL WBC Count 5.94 LAB RBC 3.93-5.22 M/uL RBC Count 4.26 LAB HGB 11.2-15.7 g/dL Hemoglobin 13.3 LAB HCT 34.1-44.9 % Hematocrit 40.0 LAB MCV 79.4-94.8 fL Mean Cell 93.9 Volume LAB MCH 25.6-32.2 pg Mean Cell 31.2 Hgb LAB MCHC 32.2-35.5 g/dL Mean Cell 33.3 Hgb Conc LAB RDW 11.7-14.4 % RBC 13.3 Distribution LAB PLT 182-369 K/uL Platelet 225 Count LAB MPV 9.4-12.3 fL Mean 11.6 Platelet Volume LAB NRBC 0.0-0.2 /100 WBC NUCLEATED 0.0 RBC LAB DTYPE Electronic DIFFERENTIAL TYPE Differential LAB IGRE % IMMATURE 0.2 GRANS % LAB SEGS % NEUTROPHIL 48.7 SEGMENTED LAB LYM % LYMPHOCYTE 40.4 % LAB MON % MONOCYTE % 8.9 LAB EOS % EOSINOPHIL 1.5 % LAB BASO % BASOPHIL % 0.3 LAB IGABS 0.00-0.03 K/uL IMMATURE 0.01 GRANS ABSOLUTE LAB SBANS 1.56-6.13 K/uL SEGS + 2.89 Bands,Absolute LAB ALYM 1.18-3.74 K/uL Abs Lymph 2.40 LAB AMONO 0.24-0.86 K/uL Abs [place] 0.53 LAB AEOS 0.04-0.36 K/uL Abs Eos 0.09 LAB ABASO 0.01-0.08 K/uL Abs Baso 0.02 Performed By: #### CHIQUITA, CBCDFE #### [address] [address] ALLERGIES ALLERGIES DATE TYPE / CODE NAME / CODE REACTION SEVERITY SOURCE 12/01/2017 Drug No Known Unknown [place] Allergy/[id number](S Allergies/F[address] [facility] [place] [facility]) [address](RXNORM) Hospital Repository 07/10/2017 Drug oxycodone Itching Unknown [place] Allergy/544199194(S HCl/[id number]( [facility] NOMED CT) RXNORM) Hospital Repository 07/16/2015 Miscellaneous surgery tape Itching Unknown [place] Allergy/853512838(S [facility] NOMED CT) Hospital Repository ENCOUNTERS ENCOUNTERS ADMIT/DISCHARGE ACCOUNT NUMBER ADMITTING ENCOUNTER LOCATION SOURCE CLASS 04/09/2018 [id number] Ambulatory [facility] ding:MEDOUTP Repository 03/12/2018 [id number] Ambulatory [facility] ding:MEDOUTP Repository 02/13/2018 [id number] Ambulatory [facility] ding:MEDOUTP Repository 01/15/2018 [id number] Ambulatory [facility] ding:MEDOUTP Repository 12/18/2017 [id number] Ambulatory Building:[facility] Repository 12/01/2017 [id number] Ambulatory [facility] ding:LABSPEC Repository 12/01/2017/12/02/19 [id number] Ambulatory B[facility]Building: [place] [facility] Repository 11/20/2017 [id number] Ambulatory Building:[facility] Repository 10/23/2017 [id number] Ambulatory Building:[facility] Repository 09/29/2017 [id number] Ambulatory Building:[facility] Repository 09/29/2017 [id number] Ambulatory Building:[facility] Repository 09/25/2017 [id number] Ambulatory Building:[facility] Repository 09/25/2017 [id number] Ambulatory Building:[facility] Repository 09/11/2017/09/12/19 [id number] Emergency [address] ding:ED Repository 08/28/2017 [id number] Ambulatory Building:[facility] Repository 08/08/2017/08/09/19 [id number] Ambulatory BMSBuilding: [place] 18 BMS.[facility] Repository 08/08/2017 [id number] Ambulatory BMSBuilding: [place] BMS.[facility] Repository 08/08/2017 [id number] Ambulatory [facility] ding:LAB.FUT Repository URE 07/31/2017 [id number] Ambulatory Building:[facility] Repository 07/17/2017 [id number] Ambulatory BMSBuilding: [place] BMS.CF.[facility] Repository 07/16/2017/07/17/19 [id number] Ambulatory [place] 18 [facility] ding:SDC Repository 07/10/2017 [id number] Ambulatory [facility] ding:POLAB3 Repository 07/10/2017/07/11/19 [id number] Ambulatory BMSBuilding: [place] 18 [facility] Repository 07/09/2017/07/10/19 [id number] Emergency [place] 18 [facility] ding:ED Repository 07/03/2017 [id number] Ambulatory Building:[facility] Repository 06/05/2017 [id number] Ambulatory Building:[facility] Repository 06/05/2017 [id number] Ambulatory Building:[facility] Repository 05/08/2017 [id number] Ambulatory Building:[facility] Repository PAYERS PAYERS ENCOUNTER GUARANTOR PAYER SUBSCRIBER SOURCE 04/09/2018 DEVIKA Conrad Primary NAVEED Maria [id number] S Insurance:MEDICAL ANDERSONDOB: [facility] [id number] Number: Repository [address]Tzx: (779) [id number] () Date:9855-72-40SK[address] [address]AX: 04/09/2018 Secondary NOT GIVENUNK [place] Insurance:SELF PAY [facility] Number: Effective Repository Date:2018-03-12 03/12/2018 DEVIKA Conrad Primary NAVEED Maria [id number] S Insurance:MEDICAL ANDERSONDOB: [facility] [id number] Number: Repository [address]Eci: 330 [id number] () Date:5861-39-72JH [address] [place] [address]IP: 03/12/2018 Secondary NOT GIVENUNK [place] Insurance:SELF PAY [facility] Number: Effective Repository Date:2018-02-13 02/13/2018 DEVIKA Conrad Primary NAVEED [place] [id number] S Insurance:MEDICAL ANDERSONDOB: [facility] [id number] Number: Repository [address]Vwo: 330 [id number] () Date:4203-99-63MW [address] [place] [address]JI: 02/13/2018 Secondary NOT GIVENUNK [place] Insurance:SELF PAY [facility] Number: Effective Repository Date:2018-01-15 01/15/2018 DEVIKA Conrad Primary NAVEED [place] [id number] S Insurance:MEDICAL ANDERSONDOB: [facility] [id number] Number: Repository [address]Rbu: 330 [id number] () Date:5750-23-72GU [address] [place] [address]XT: 01/15/2018 Secondary NOT GIVENUNK [place] Insurance:SELF PAY [facility] Number: Effective Repository Date:2018-01-08 12/18/2017 DEVIKA [facility] ANDERSONDOB: Insurance:[facility] ANDERSONDOB: [place] [id number] S Number: [id number] [facility] [id number] [address] [place], [place] Date:Plan [place], [place] Repository [address]Xym: (330) Name:MANAGED CARE [id number]: (HP) () 12/18/2017 Secondary [facility] Insurance:DRUG ANDERSONDOB: [facility] [id number] [facility] Number: 7 S [facility] [id number] [place], [place] Repository Date:8378-30-82Rewb 59916Jbm: (330) Name:Other () 12/01/2017 DEVIKA Cornad Primary Naveed [id number] S Insurance:MEDICAL AndersonDOB: [facility] [id number] Number: Repository [address]Mym: 330 [id number] () Date:2716-67-03SZ [address] [place] [address]YA: 12/01/2017 Secondary NOT GIVENUNK [place] Insurance:SELF PAY [facility] Number: Effective Repository Date:2017-12-01 12/01/2017 Devika Conrad Primary Naveed Maria [id number] S Insurance:MEDICAL AndersonDOB: [facility] [id number] Number: Repository [address]Fmw: 330 [id number] () Date:0703-96-67IK [address] [place] [address]CE: 12/01/2017 Secondary NOT GIVENUNK [place] Insurance:SELF PAY [facility] Number: Effective Repository Date:2017-12-01 11/20/2017 DEVIKA Primary [facility] ANDERSONDOB: Insurance:MMOPolicy ANDERSONDOB: [place] [id number] S Number: [id number] [facility] [id number] [address] [place], [place] Date:Plan [place], [place] Repository [address]Gsv: (330) Name:[facility] CARE [id number]: (HP) () 10/23/2017 DEVIKA Primary [facility] ANDERSONDOB: Insurance:MMOPolicy ANDERSONDOB: [place] [id number] S Number: [id number] [facility] [place] [id number] [address] [place] Date:Plan [place] Repository [address]Fld: (330) Name:MANAGED CARE [id number]: () () 10/23/2017 Secondary [facility] Insurance:DRUG ANDERSONDOB: [facility] [id number] [facility] PROGRAMPolicy Number: [address] [id number] [place], [place] Repository Date:2923-80-03Puka [address]Wwz: (330) Name:Other () 09/29/2017 DEVIKA [facility] ANDERSONDOB: [facility] [place] [id number] S Number: [id number] [facility] [id number] [address] [place] Date:Plan [place] Repository [address]Rxl: (330) Name:[facility] CARE 13223Rmr: () () 09/29/2017 [facility] ANDERSONDOB: Insurance:[facility] [place] [id number] S Number: [id number] [facility] [id number] [address] [place] Date:Plan [place] Repository [address]Dsw: (330) Name:[facility] CARE [id number]: () () 09/25/2017 [facility] ANDERSONDOB: Insurance[facility] [place] [id number] S Number: [id number] [facility] [id number] [address] [place] Date:Plan [place] Repository [address]Yoy: (330) Name:[facility] CARE [id number]: (HP) () 09/25/2017 [facility] ANDERSONDOB: Insurance:MMOPoly ANDERSONDOB: [place] S Number: [id number] [facility] [id number] [address] [place], [place] Date:Plan [place] Repository [address]Fxz: (330) Name:MANAGED CARE [id number]: () () 09/11/2017 Devika Conrad Primary Naveed Abarca [place] [id number] S Insurance:MEDICAL AndersonDOB: [facility] [id number] Number: Repository [address]Usw: 330 [id number] () Date:6036-42-27SI[place] [phone]: 09/11/2017 Secondary NOT [facility] Insurance:SELF PAY [facility] Number: Effective Repository Date:2017-09-11 08/28/2017 [facility] ANDERSONDOB: Insurance:MMOPoly ANDERSONDOB: [place] [id number] S Number: [id number] [facility] [id number] [address] [place], [place] Date:Plan [place] Repository [address]Eoc: (330) Name:[facility] CARE [id number]: () () 08/28/2017 Secondary [facility] Insurance:DRUG ANDERSONDOB: [facility] [id number] [facility] Number: 7 S [facility] [id number] [place], [place] Repository Date:2398-62-66Vjkr 613[address]Ejj: (330) Name:Other () 08/08/2017 Devika Conrad Primary Naveed Maria [id number] S Insurance:MEDICAL AndersonDOB: [facility] [id number] Number: Repository [address]Jih: 330 [id number] () Date:2800-84-12MR [address] [place] [address]II: 08/08/2017 Secondary NOT GIVENUNK [place] Insurance:SELF PAY [facility] Number: Effective Repository Date:2017-08-08 08/08/2017 Devika Conrad Primary Naveed Maria [id number] S Insurance:MEDICAL AndersonDOB: [facility] [id number] Number: Repository [address]Ztj: 330 [id number] () Date:8431-90-03VD [address] [address]BF: 08/08/2017 Secondary NOT GIVENUNK [place] Insurance:SELF PAY [facility] Number: Effective Repository Date:2017-07-18 08/08/2017 Devika Conrad Primary Naveed Maria [id number] S Insurance:MEDICAL AndersonDOB: [facility] [id number], [place] Number: Repository [address]Fhr: 330 [id number] () Date:3650-69-61MW [address] [address]EF: 08/08/2017 Secondary NOT GIVENUNK [place] Insurance:SELF PAY [facility] Number: Effective Repository Date:2017-08-03 07/31/2017 DEVIKA [facility] ANDERSONDOB: Insurance:MMOPolicy ANDERSONDOB: [place] [id number] S Number: [id number] [facility] [id number] [address] [place], [place] Date:Plan [place] Repository [address]Dzg: (330) Name:MANAGED CARE 23122Nqx: (HP) () 07/31/2017 Secondary [facility] Insurance:DRUG ANDERSONDOB: [facility] [id number] [facility] Number: 7 [address] [facility] [id number] [place] Repository Date:5063-01-25Jxiu 158[address]Xzl: (330) Name:Other () 07/17/2017 Devika M Primary Naveed Maria [id number] S Insurance:MEDICAL AndersonDOB: [facility] [id number] Number: Repository [address]Jxh: 330 [id number] () Date:1627-35-27XJ [address] [place] [address]LT: 07/17/2017 Secondary NOT GIVENUNK [place] Insurance:SELF PAY [facility] Number: Effective Repository Date:2017-07-17 07/16/2017 Devika M Primary Naveed Maria [id number] S Insurance:MEDICAL AndersonDOB: [facility] [id number], [place] Number: Repository [address]Adk: 330 [id number] () Date:7818-95-20WP [address] [address]KE: 07/16/2017 Secondary NOT GIVENUNK [place] Insurance:SELF PAY [facility] Number: Effective Repository Date:2017-07-10 07/10/2017 Devika M Primary Naveed Maria [id number] S Insurance:MEDICAL AndersonDOB: [facility] [id number], [place] Number: Repository [address]Byh: 330 [id number] () Date:1775-13-83IH [address] [address]JU: 07/10/2017 Secondary NOT GIVENUNK [place] Insurance:SELF PAY [facility] Number: Effective Repository Date:2017-07-10 07/10/2017 Devika M Primary Naveed Maria [id number] S Insurance:MEDICAL AndersonDOB: [facility] [id number], [place] Number: Repository [address]Qnf: 330 [id number] () Date:8731-87-97NP [address] [address]SY: 07/10/2017 Secondary NOT GIVENUNK [place] Insurance:SELF PAY [facility] Number: Effective Repository Date:2017-07-10 07/09/2017 Devika [facility] Naveed [facility] [id number] S Insurance:MEDICAL AndersonDOB: [facility] [id number], [place] Number: Repository [address]Tkx: 330 [id number] () Date:1770-68-26YN [address] [address]VO: 07/09/2017 Secondary NOT GIVENUNK [place] Insurance:SELF PAY [facility] Number: Effective Repository Date:2017-07-09 07/03/2017 [facility] ANDERSONDOB: [facility] AND[facility]ONDOB: [place] [id number] S Number: [id number] [facility] [id number] [address] [place], [place] Date:Plan [place] Repository [address]Pyb: (330) Name:[facility] CARE 54589Vkf: () () 07/03/2017 Secondary [facility] Insurance:DRUG ANDERSONDOB: [facility] [id number] [facility] Number: 7 [address] [facility] [id number] [place] Repository Date:8163-37-44Ngmm 446[address]Nuc: (330) Name:Other () 06/05/2017 [facility] ANDERSONDOB: Insurance:MMOPolicy ANDERSONDOB: [place] [id number] S Number: [id number] [facility] [id number] [address] [place] Date:Plan [place] Repository [address]Eoj: (330) Name:MANAGED CARE [id number]: () () 06/05/2017 [facility] Insurance:DRUG ANDERSONDOB: [employer]Y [id number] [facility] PROGRAMPolicy Number: [address] [id number] [place], [place] Repository Date:7023-53-80Ovkx 85500Ugs: (330) Name:Other () 06/05/2017 [facility] ANDERSONDOB: Insurance:MMOPolicy ANDERSONDOB: [place] S Number: [id number] [facility] JEREM[place] [id number] [address] [place] Date:Plan [place] Repository [address]Sny: (330) Name:[facility] CARE [id number]: () () 06/05/2017 Secondary [facility] Insurance:DRUG ANDERSONDOB: [employer] ADVOCACY [id number] [facility] PROGRAMPolicy Number: [address] [id number] [place], [place] Repository Date:1056-43-37Bjpd 83853Mig: (330) Name:Other () 05/08/2017 [facility] ANDERSONDOB: Insurance:MMOPolicy ANDERSONDOB: [place] S Number: [id number] [facility] J[place] [id number] [address] [place] Date:Plan [place] Repository [address]Lbs: (330) Name:MANAGED CARE [id number]: (HP) () 05/08/2017 Secondary [facility] Insurance:DRUG ANDERSONDOB: [employer] ADVOCACY [id number] [facility] PROGRAMPolicy Number: [address] [id number] [place], [place] Repository Date:1605-40-11Hixy 803[address]Kmg: (902) Name:Other (HP)
== END ==
PROVIDERS: Family Provider Family Medicine; PCP Family Medicine
DX: K50.00 Crohn's disease of small intestine without complications (principal)
CPT/HCPCS: 96413; J7050; A4216; Q5103

== ENCOUNTER → 2018-05-07 11:35 | Outpatient (CLI) | payer OTHER, SELFPAY ==
[2018-02-13 11:41] VITALS: BMI 27.3
[2018-05-07 11:48] VITALS: BP 120/75; PULSE 85; RESP 16; TEMP 36.8; O2SAT 98; BMI 28.2
== END ==
PROVIDERS: Family Provider Family Medicine; PCP Family Medicine
DX: K50.00 Crohn's disease of small intestine without complications (principal)
CPT/HCPCS: 96413; 96415; J7050; A4216; Q5103

== ENCOUNTER → 2018-06-04 11:27 | Outpatient (CLI) | payer OTHER, SELFPAY ==
[2018-05-07 11:48] VITALS: BMI 28.2
[2018-06-04 11:54] VITALS: BP 125/70; PULSE 84; RESP 18; TEMP 36.6; O2SAT 96; BMI 27.9
[2018-06-04 12:05] LABS: Absolute Lymphocyte Count 1.98 X10^3/ul (0.83-4.51); Absolute Neutrophil Count 1.7 X10^3/uL (2.0-7.7); Basophil# 0.01 X10^3/uL; Basophil% 0.2 % (0-1); Eosinophils% 2.4 % (0-5); Hematocrit 39.4 % (37-47); Hemoglobin 13.2 g/dl (12.0-15.0); Lymphocyte # 1.98 X10^3/ul (4.0); Lymphocyte % 47.1 % (19-41); Mean Corp Hgb Conc 33.5 g/gl (32-36); Mean Corpuscular Hgb 31.2 pg (27.0-32.0); Mean Corpuscular Volume 93.1 fL (81-99); Mean Platelet Vol. 10.7 fl (6.2-12.0); Monocyte# 0.39 X10^3/uL; Monocyte% 9.3 % (0-10); Neutrophil # 1.72 X10^3/uL (2.7-7.7); Platelet Count 201 K/mm3 (150-450); RBC Distribution Width CV 13.4 % (11.6-14.6); RBC Distribution Width SD 45.8 fl (35.1-43.9); Red Blood Count 4.23 M/mm3 (4.2-5.4); White Blood Count 4.2 K/mm3 (4.4-11.0)
[2018-06-04 12:09] LABS: POSITIVE COUNT NO; POSITIVE DIFFERENTIAL NO; POSITIVE MORPHOLOGY NO
[2018-06-04 12:12] LABS: Erythrocyte Sedimentation Rate 14 mm/hr (0-20)
[2018-06-04 12:17] LABS: ALB/GLOB Ratio 1.1 RATIO (0.9-2.4); AST(SGOT) 29 U/L (15-37); Alanine Aminotransfer ALT/SGPT 35 U/L (13-56); Albumin, Serum 3.8 g/dL (3.2-5.0); Alkaline Phosphatase 64 U/L (45-117); Anion Gap 6 (5-15); BUN 13 mg/dL (7-18); BUN/Creat Ratio 15.4 RATIO (10-20); CRP < 2.90 mg/L (0.0-3.0); Calcium,Total 8.8 mg/dL (8.5-10.1); Chloride 107 mmol/L (98-107); Creatinine, Serum 0.84 mg/dL (0.55-1.02); EST Glomerular Filtration Rate 78 mL/min (>60); Est Glom Filt Rate - Afr Amer 95 mL/min (>60); Estimated Creatinine Clearance 80.84 ml/min; Globulin 3.5 g/dL (2.2-4.2); Glucose 105 mg/dL (74-106); Potassium 3.8 mmol/L (3.5-5.1); Protein, Total 7.3 g/dL (6.4-8.2); Sodium Level 140 mmol/L (136-145)
[2018-06-04 14:58] VITALS: BP 109/60; PULSE 85
[2018-06-09 11:20] LABS: Calprotectin, Stool <16 ug/g (0-120)
== END ==
PROVIDERS: Family Provider Family Medicine; PCP Family Medicine
DX: K50.00 Crohn's disease of small intestine without complications (principal)
CPT/HCPCS: 96365; 80053; 83993; 85025; 85652; 86140; 87493; 87506; 96413; J7050; A4216; Q5103

== ENCOUNTER → 2018-06-25 16:12 | Outpatient (CLI) | payer OTHER, SELFPAY ==
[2018-06-04 11:54] VITALS: BMI 27.9
--- NOTE | 2018-06-25 16:15 | CT_ITS ---
STUDY: CT SOFT TISSUE NECK WITH CONTRAST REASON FOR EXAM: Female, 42 years old. Left neck pain RADIATION DOSAGE (If Supplied By Facility): CTDIvol = ( 18.24 ) mGy, DLP = ( 482.83 ) mGycm TECHNIQUE: The patient was scanned in a multi-detector CT scanner. High resolution transaxial imaging was performed following intravenous administration of 100CC IV Isovue 300. Sagittal and coronal images were reconstructed. Individualized dose optimization techniques were used for this CT. COMPARISON: None. FINDINGS: SUPRAHYOID HEAD AND NECK RIGGER HELPER SPACE (INCLUDING SUPRAZYGOMATIC PORTION): Normal with no evidence of an accessory parotid lobe. No calcification in parotid duct. PARAPHARYNGEAL SPACE: Normal and symmetric. No evidence of asymmetric pterygoid plexus. RETROPHARYNGEAL SPACE: Normal with no enlarged nodes of Rouvier laterally CAROTID SPACE: Normal PERIVERTEBRAL SPACE: The prevertebral and paraspinal components are normal. PAROTID SPACE: Negative PHARYNGEAL MUCOSAL SPACE: The nasopharyngeal and oropharyngeal spaces including the tongue base are normal with no tonsillitis, adenoidal hypertrophy or any neoplastic processes. ORAL CAVITY : The mucosal surfaces including the anterior two thirds of the tongue and the submandibular and sublingual spaces are normal INFRAHYOID HEAD AND NECK: VISCERAL SPACE: The thyroid, trachea, esophagus, larynx and hypopharynx are normal. THE CAROTID, RETROPHARYNGEAL, PERIVERTEBRAL and POSTERIOR CERVICAL SPACES (Containing The Spinal Accessory Lymph Nodes): Normal . ORBITS AND PARANASAL SINUSES: Negative CERVICAL LYMPH NODES: Small reactive lymph nodes at levels [address]/Soft Tissue Neck WITH Contrast IMPRESSION: Normal enhanced CT examination of the soft tissues of the neck. Electronically Signed: Martin Ba MD at 4:22 EDT Tel , Service support ,
== END ==
PROVIDERS: Family Provider Family Medicine; PCP Family Medicine; Referring Provider Otolaryngology; Visit Provider Otolaryngology
DX: M54.2 Cervicalgia (principal); M79.89 Other specified soft tissue disorders
CPT/HCPCS: 70491; Q9967

== ENCOUNTER → 2018-07-02 11:34 | Outpatient (CLI) | payer OTHER, SELFPAY ==
[2018-06-04 11:54] VITALS: BMI 27.9
[2018-07-02 11:48] VITALS: BP 114/70; PULSE 80; RESP 16; TEMP 36.2; O2SAT 95; BMI 28.0
[2018-07-02 13:00] VITALS: BP 116/72; PULSE 78; RESP 16; TEMP 36.9; O2SAT 97
== END ==
PROVIDERS: Family Provider Family Medicine; PCP Family Medicine
DX: K50.00 Crohn's disease of small intestine without complications (principal)
CPT/HCPCS: 96413; J7050; A4216; Q5103

== ENCOUNTER → 2018-07-30 11:28 | Outpatient (CLI) | payer OTHER, SELFPAY ==
[2018-07-02 11:48] VITALS: BMI 28.0
[2018-07-30 11:47] VITALS: BP 113/71; PULSE 90; RESP 18; TEMP 36.7; O2SAT 97; BMI 27.9
[2018-07-30 12:46] VITALS: BP 118/73; PULSE 79; RESP 18
[2018-07-30 14:09] VITALS: BP 103/57; PULSE 72; RESP 14
== END ==
PROVIDERS: Family Provider Family Medicine; PCP Family Medicine
DX: K50.00 Crohn's disease of small intestine without complications (principal)
CPT/HCPCS: 96413; J7050; A4216; Q5103

== ENCOUNTER → 2018-08-27 11:31 | Outpatient (CLI) | payer OTHER, SELFPAY ==
[2018-07-30 11:47] VITALS: BMI 27.9
[2018-08-27 11:53] VITALS: BP 110/76; PULSE 89; RESP 15; TEMP 37.1; O2SAT 98; BMI 27.6
[2018-08-27 12:57] VITALS: BP 111/71; PULSE 74; RESP 16; TEMP 36.8; O2SAT 99
[2018-08-27 13:15] VITALS: BP 111/71; PULSE 74; TEMP 36.6; O2SAT 99
[2018-08-27 13:33] VITALS: BP 119/65; PULSE 88; RESP 15; TEMP 37.6; O2SAT 98
[2018-08-27 14:00] VITALS: BP 122/71; PULSE 85; TEMP 37.2; O2SAT 100
[2018-08-27 15:51] VITALS: BP 110/64; PULSE 85; RESP 15; TEMP 37.2; O2SAT 99
== END ==
PROVIDERS: Family Provider Family Medicine; PCP Family Medicine
DX: K50.00 Crohn's disease of small intestine without complications (principal)
CPT/HCPCS: 96413; 99211; J7050; A4216; G0463; Q5103

== ENCOUNTER → 2018-09-17 14:29 | Outpatient (CLI) | payer OTHER, SELFPAY ==
[2018-08-27 11:53] VITALS: BMI 27.6
--- NOTE | 2018-09-17 14:35 | RAD_ITS ---
HISTORY:CONCERN FOR DISC PROTRUSION CONCERN FOR DISC PROTRUSION EXAMINATION/TECHNIQUE: XR Spine Lumbar 2 or 3 Views: COMPARISON: None FINDINGS: VERTEBRAE: Preserved vertebral body height. No fracture. No spondylolisthesis. Degenerative changes of the posterior elements. Preservation of the normal lumbar lordosis. DISCS: Degenerative changes are noted. INCLUDED ABDOMEN: Included bowel gas pattern is non-obstructive. RAD/Lumbar Spine 2 or 3 Views IMPRESSION: Degenerative changes. No acute fracture or spondylolisthesis. at 1838 Reported and signed by: Patria Swan DO Electronically Signed: Patria Swan DO at 18:37 EDT Tel , Service support ,
== END ==
PROVIDERS: Family Provider Family Medicine; PCP Family Medicine; Referring Provider Family Medicine; Visit Provider Family Medicine
DX: M79.2 Neuralgia and neuritis, unspecified (principal)
CPT/HCPCS: 72100

== ENCOUNTER → 2018-09-23 11:35 | Outpatient (CLI) | payer OTHER, SELFPAY ==
[2018-08-27 11:53] VITALS: BMI 27.6
[2018-09-23 12:01] VITALS: BP 115/72; PULSE 85; RESP 16; TEMP 36.6; O2SAT 97
[2018-09-23 12:46] VITALS: BP 119/71; PULSE 80; RESP 16; TEMP 36.9; O2SAT 98
[2018-09-23 13:26] VITALS: BP 118/70; PULSE 82
[2018-09-23 13:47] VITALS: BP 114/69; PULSE 79; RESP 16; TEMP 36.6; O2SAT 98
== END ==
PROVIDERS: Family Provider Family Medicine; PCP Family Medicine; Referring Provider Internal Medicine; Visit Provider Internal Medicine
DX: K50.00 Crohn's disease of small intestine without complications (principal)
CPT/HCPCS: 96413; J7050; A4216; Q5103

== ENCOUNTER → 2018-10-22 11:29 | Outpatient (CLI) | payer OTHER, SELFPAY ==
[2018-08-27 11:53] VITALS: BMI 27.6
[2018-10-22 11:56] VITALS: BP 122/70; PULSE 88; RESP 16; TEMP 36.7; O2SAT 98; BMI 27.4
[2018-10-22 12:35] VITALS: BP 110/71; PULSE 73; RESP 18; TEMP 36.2; O2SAT 97
[2018-10-22 12:54] VITALS: BP 117/63; PULSE 71; RESP 16; TEMP 36.4; O2SAT 97
[2018-10-22 13:18] VITALS: BP 122/72; PULSE 73; RESP 18; TEMP 36.8
[2018-10-22 13:39] VITALS: BP 127/71; PULSE 78; RESP 16
[2018-10-22 14:50] VITALS: BP 117/71; PULSE 82; RESP 18; TEMP 36.9; O2SAT 98
== END ==
PROVIDERS: Family Provider Family Medicine; PCP Family Medicine; Referring Provider Internal Medicine; Visit Provider Internal Medicine
DX: K50.00 Crohn's disease of small intestine without complications (principal)
CPT/HCPCS: 96413; J7050; A4216; Q5103

== ENCOUNTER 2018-11-16 22:12 | Emergency (ER) | payer OTHER, SELFPAY ==
[2018-10-22 11:56] VITALS: BMI 27.4
[2018-11-16 22:13] VITALS: BP 159/96; PULSE 94; RESP 16; TEMP 35.8; BMI 28.0
--- NOTE | 2018-11-16 22:48 | ED.VIS.GEN ---
History of Present Illness Chief Complaint: Abd Pain Narrative: Patient is a 43-year-old female who presents with abdominal pain. She does have a history of Crohn's disease. She complains of increased abdominal crampy lower abdominal pain for the past 2 to 3 days. She currently rates this as an 8 out of 10. She denies any nausea or vomiting. No fevers. She does complain of frequent diarrhea over the last 2 to 3 days. No blood in her stool. She does have a history of prior , appendectomy, small bowel resection. 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 She is on Imuran and also receives an infusion. Past Medical History - Allergies and Home Meds Allergies/Adverse Reactions: Allergies No Known Allergies Allergy (Verified 12/01/17 10:35) Primary Care Physician: Lindsey Bain MD [Primary Care Provider] - Past Medical History: - - Crohn's disease Surgical History: appendectomy, - - Small bowel resection, section Smoking Status: Never smoker Review of Systems All systems negative except as indicated General: Denies: Fever Cardiovascular: Denies: Chest pain Respiratory: Denies: Dyspnea Gastrointestinal: Reports: Abdominal pain, Diarrhea. Denies: Vomiting Physical Exam Vital Signs/Narrative: Vital Signs Temp Pulse Resp BP 11/16/18 22:13 96.5 F L 94 16 159/96 H General: Well nourished, Well developed Head: Normocephalic Eyes: EOMI ENT: Moist mucous membranes Neck: Supple Cardiovascular: Regular rate, Regular rhythm Respiratory: No distress, CTA bilaterally Abdomen: Soft, Normal bowel sounds, Tender - Lower abdominal tenderness. Negative for: Guarding, Rebound tenderness Skin: Normal color Neurological: Alert Psychological: Normal affect Diagnostic/Tx/Re-eval Impressions Abdomen/Pelvis CT 11/17/18 22:47 IMPRESSION: Bilateral medullary calcifications consistent with medullary sponge kidney. Hepatic steatosis. Previous surgery at the ileocecal valve. No acute disease perceived. Decreased size right ovarian follicle. Individualized dose optimization techniques were used for this CT. at 0107 Reported and signed by: Gualberto Suh MD Electronically Signed: Gualberto Suh MD at 1:06 EDT Tel , Service support , 11/17/18 22:47 Abdomen/Pelvis WITH Contrast [CT] Stat Laboratory Results 11/16/18 11/16/18 22:26 22:26 WBC 7.0 RBC 4.52 Hgb 14.4 Hct 41.5 MCV 91.8 MCH 31.9 MCHC 34.7 RDW Std Deviation 44.4 H RDW Coeff of Gordon 13.2 Plt Count 218 MPV 11.2 Immature Gran % (Auto) 0.300 Neut % (Auto) 38.7 L Lymph % (Auto) 45.5 H [place] % (Auto) 12.3 H Eos % (Auto) 2.6 Baso % (Auto) 0.6 Absolute Neuts (auto) 2.7 Absolute Lymphs (auto) 3.19 Nucleated RBC % 0 Sodium 138 Potassium 3.9 Chloride 107 Carbon Dioxide 24.0 Anion Gap 7 BUN 14 Creatinine 0.92 Estim Creat Clear Calc 73.05 Est GFR (MDRD) Af Amer 85 Est GFR (MDRD) Non-Af 71 BUN/Creatinine Ratio 15.3 Glucose 107 H Calcium 9.1 Total Bilirubin 0.50 AST 37 ALT 45 Alkaline Phosphatase 81 Total Protein 7.7 Albumin 3.7 Globulin 4.0 Albumin/Globulin Ratio 0.9 Lipase 146 - Medical Decision Making Laboratory studies unremarkable and CT of the abdomen shows no acute disease. Given her increased pain and diarrhea we will treat with steroid burst. She was given a dose of IV Solu-Medrol here. We will treat with prednisone at home and she was advised to contact her home teaching grades 7 and 8 teacher for follow-up. She understands to return for new or worsening symptoms and was discharged home. ED Disposition - Plan for ED Patient: Disposition: Home or Assisted Living Diagnosis: Abdominal pain, Crohns disease Instructions: Crohn's Disease Prescriptions: predniSONE tablet 60 mg PO DAILY #15 tab Prescription Printed Referrals: Lindsey Bain MD [Primary Care Provider] -
[2018-11-16] MEDS: Morphine 4 MG/ML Syringe IV (22:52)
[2018-11-16] MEDS: Ondansetron 4 MG/2 ML Vial IV (22:52)
[2018-11-16] MEDS: 0.9% Normal Saline 1,000 ML 1000 ML IV (22:52)
[2018-11-16 22:55] LABS: Absolute Lymphocyte Count 3.19 X10^3/uL (0.83-4.51); Absolute Neutrophil Count 2.7 X10^3/uL (2.0-7.7); Basophil# 0.04 X10^3/uL; Basophil% 0.6 % (0-1); Eosinophil# 0.18 X10^3/uL; Eosinophils% 2.6 % (0-5); Hematocrit 41.5 % (37-47); Hemoglobin 14.4 g/dL (12.0-15.0); Lymphocyte # 3.19 X10^3/ul (4.0); Lymphocyte % 45.5 % (19-41); Mean Corp Hgb Conc 34.7 g/dL (32-36); Mean Corpuscular Hgb 31.9 pg (27.0-32.0); Mean Corpuscular Volume 91.8 fL (81-99); Mean Platelet Vol. 11.2 fl (6.2-12.0); Monocyte# 0.86 X10^3/uL; Monocyte% 12.3 % (0-10); NRBC Flagged by Analyzer 0 % (0-5); Neutrophil # 2.72 X10^3/uL (2.7-7.7); Neutrophil % 38.7 % (47-70); Platelet Count 218 K/mm3 (150-450); RBC Distribution Width CV 13.2 % (11.6-14.6); RBC Distribution Width SD 44.4 fl (35.1-43.9); Red Blood Count 4.52 M/mm3 (4.2-5.4)
[2018-11-16 23:08] LABS: ALB/GLOB Ratio 0.9 RATIO (0.9-2.4); AST(SGOT) 37 U/L (15-37); Alanine Aminotransfer ALT/SGPT 45 U/L (13-56); Albumin, Serum 3.7 g/dL (3.2-5.0); Alkaline Phosphatase 81 U/L (45-117); Anion Gap 7 (5-15); BUN 14 mg/dL (7-18); BUN/Creat Ratio 15.3 RATIO (10-20); Calcium,Total 9.1 mg/dL (8.5-10.1); Chloride 107 mmol/L (98-107); Creatinine, Serum 0.92 mg/dL (0.55-1.02); EST Glomerular Filtration Rate 71 mL/min (>60); Est Glom Filt Rate - Afr Amer 85 mL/min (>60); Estimated Creatinine Clearance 73.05 ml/min; Glucose 107 mg/dL (74-106); Lipase 146 U/L (73-393); Potassium 3.9 mmol/L (3.5-5.1); Protein, Total 7.7 g/dL (6.4-8.2); Sodium Level 138 mmol/L (136-145)
[2018-11-17 00:23] VITALS: BP 150/90; PULSE 80; RESP 18; O2SAT 99
[2018-11-17] MEDS: MethylPREDNISolone 125 MG/2 ML Vial 60 MG IV (02:00)
[2018-11-17 02:03] VITALS: BP 130/88; PULSE 80; RESP 18; O2SAT 95
--- NOTE | 2018-11-17 22:47 | CT_ITS ---
HISTORY: LOWER ABD PAIN SINCE FRIDAY WITH DIARRHEA, HX CROHNS DISEASE WITH REMOVAL OF ILEUS, KS WITH MEDULLARY KIDNEYS, TECHNIQUE: Helically acquired images were obtained of the abdomen and pelvis following the intravenous administration of 100ML ml of Isovue 370 Iodinated contrast. 2D reformats. Oral contrast was administered. A radiation dose optimization technique was used for this scan. Comparison: Of the by previous CT scans of the abdomen and pelvis, the most recent is from September 11, 2017 FINDINGS: # of images incl. paperwork: 405 LUNG BASES: Clear. CT abdomen: Bones are unremarkable. The gallbladder has been resected. The right ovary is not enlarged but does contain a follicle There is extrahepatic biliary ductal dilatation. Above the pancreas the common bile duct is dilated to 13 mm. There is a conical narrowing of the common bile duct within the pancreatic head to a normal diameter at the papilla. The pancreatic duct is not dilated. Hepatic steatosis. The spleen, pancreas, and adrenal glands, are normal. Santi medullary calcifications consistent with medullary sponge kidney. Mild atrophy. No hydronephrosis. No hydroureter. No ureteric stones. The aorta is normal. CT pelvis: No ascites is present. The uterus is been resected. The appendix has been resected. The bladder is normal. Surgical resection of the cecum and the terminal ileum with a re-anastomosis. CT/Abdomen/Pelvis WITH Contrast IMPRESSION: Bilateral medullary calcifications consistent with medullary sponge kidney. Hepatic steatosis. Previous surgery at the ileocecal valve. No acute disease perceived. Decreased size right ovarian follicle. Individualized dose optimization techniques were used for this CT. at 0107 Reported and signed by: Gualberto Suh MD Electronically Signed: Gualberto Suh MD at 1:06 EDT Tel , Service support ,
== END 2018-11-17 02:06 | disposition home or self-care (01) ==
PROVIDERS: Emergency Provider Emergency Medicine; Family Provider Family Medicine; PCP Family Medicine
DX: R10.9 Unspecified abdominal pain (principal); K50.90 Crohn's disease, unspecified, without complications; K76.0 Fatty (change of) liver, not elsewhere classified; Q61.5 Medullary cystic kidney
CPT/HCPCS: 74177; 80053; 83690; 85025; 96361; 96374; 96375; 99283; J7030; Q9967; A4216; J2405

== ENCOUNTER → 2018-11-19 11:26 | Outpatient (CLI) | payer OTHER, SELFPAY ==
[2018-10-22 11:56] VITALS: BMI 27.4
[2018-11-16 22:13] VITALS: BMI 28.0
[2018-11-19 11:44] VITALS: BP 124/74; PULSE 85; RESP 14; TEMP 36.2; O2SAT 96; BMI 27.6
[2018-11-19 12:55] VITALS: BP 118/67; PULSE 77; RESP 16
[2018-11-19 13:35] VITALS: BP 126/67; PULSE 77; RESP 16; O2SAT 100
== END ==
PROVIDERS: Family Provider Family Medicine; PCP Family Medicine; Referring Provider Internal Medicine; Visit Provider Internal Medicine
DX: K50.00 Crohn's disease of small intestine without complications (principal)
CPT/HCPCS: 96413; J7050; A4216; Q5103

== ENCOUNTER → 2018-12-03 01:00 | Outpatient (CLI) | payer OTHER, SELFPAY ==
[2018-11-19 11:44] VITALS: BMI 27.6
== END ==
PROVIDERS: Family Provider Family Medicine; PCP Family Medicine; Visit Provider Internal Medicine
DX: R19.7 Diarrhea, unspecified (principal)
CPT/HCPCS: 87177; 87209; 87493; 87506

== ENCOUNTER → 2018-12-18 11:52 | Outpatient (CLI) | payer OTHER, SELFPAY ==
[2018-11-19 11:44] VITALS: BMI 27.6
[2018-12-18 12:00] VITALS: BP 138/77; PULSE 90; RESP 16; TEMP 36.5; O2SAT 98; BMI 27.9
[2018-12-18 13:08] VITALS: BP 118/70; PULSE 90; RESP 16; TEMP 36.6; O2SAT 98
[2018-12-18 13:26] VITALS: BP 105/60; PULSE 87; TEMP 36.6
[2018-12-18 13:43] VITALS: BP 117/65; PULSE 87; TEMP 37.2
[2018-12-18 14:01] VITALS: BP 115/69; PULSE 86; TEMP 37.2
[2018-12-18 14:32] VITALS: BP 105/65; PULSE 85; RESP 16; TEMP 37.1
== END ==
PROVIDERS: Family Provider Family Medicine; PCP Family Medicine; Referring Provider Internal Medicine; Visit Provider Internal Medicine
DX: K50.00 Crohn's disease of small intestine without complications (principal)
CPT/HCPCS: 96413; J7050; A4216; Q5103

== ENCOUNTER → 2019-01-14 11:31 | Outpatient (CLI) | payer OTHER, SELFPAY ==
[2018-12-18 12:00] VITALS: BMI 27.9
[2019-01-14 11:57] VITALS: BP 125/71; PULSE 87; RESP 18; TEMP 36.2; O2SAT 98; BMI 28.4
[2019-01-14 12:49] VITALS: BP 122/80; PULSE 85; RESP 18; TEMP 36.8; O2SAT 97
[2019-01-14 13:05] VITALS: BP 118/72; PULSE 86; RESP 16; TEMP 36.8
[2019-01-14 13:24] VITALS: BP 126/70; PULSE 84; RESP 16; TEMP 36.7; O2SAT 97
[2019-01-14 13:40] VITALS: BP 117/72; PULSE 80; RESP 18; TEMP 36.6
[2019-01-14 14:41] VITALS: BP 113/69; PULSE 84; RESP 18; TEMP 36.5
== END ==
PROVIDERS: Family Provider Family Medicine; PCP Family Medicine; Referring Provider Internal Medicine; Visit Provider Internal Medicine
DX: K50.90 Crohn's disease, unspecified, without complications (principal)
CPT/HCPCS: 96413; J7050; A4216; Q5103

== ENCOUNTER → 2019-01-20 18:14 | Outpatient (CLI) | payer OTHER, SELFPAY ==
[2019-01-20 14:34] VITALS: BMI 28.4
--- NOTE | 2019-01-20 18:21 | US_ITS ---
STUDY: ULTRASOUND OF THE FEMALE PELVIS - COMPLETE REASON FOR EXAM: Female, 43 years old. Pelvic pain. LMP: The patient is status post hysterectomy. TECHNIQUE: Transabdominal and Transvaginal TECHNICAL QUALITY: Adequate. COMPARISON: None. FINDINGS: The patient is status post hysterectomy. The right ovary is visualized. The right ovary measures 3.1 cm x 2.8 cm x 2.1 cm. There is a right ovarian cyst measuring 1.7 cm x 2 cm x 1.8 cm. There is no visualized right adnexal mass or complex lesion. There is normal arterial and normal venous vascularity. The patient is status post left oophorectomy. There is no fluid in the cul-de-sac. The pre void volume of the bladder was 429.4 ml. Polycystic ovary disease: No. US/Transvaginal Non- IMPRESSION: Status post hysterectomy and left oophorectomy. There is a 2 cm x 1.7 cm x 1.8 cm cyst in the right ovary. Electronically Signed: Greg Reeder, at 15:40 EDT , Service support ,
== END ==
PROVIDERS: Family Provider Family Medicine; PCP Family Medicine; Visit Provider Obstetrics & Gynecology
DX: R10.2 Pelvic and perineal pain (principal)
CPT/HCPCS: 76830; 93976

== ENCOUNTER 2019-02-08 09:26 | Emergency (ER) | payer OTHER, SELFPAY ==
[2019-01-20 14:34] VITALS: BMI 28.4
[2019-02-08 09:27] VITALS: BP 151/110; PULSE 112; RESP 17; TEMP 36.7; O2SAT 97; BMI 27.4
--- NOTE | 2019-02-08 09:37 | CT_ITS ---
STUDY: CT ABDOMEN AND PELVIS WITH CONTRAST REASON FOR EXAM: Female, 43 years old. Abdominal pain with nausea and vomiting. Patient has a history of Crohn's disease and prior resection of the ileum. RADIATION DOSAGE (If Supplied By Facility): CTDIvol = ( 12.60 ) mGy, DLP = ( 785.73 ) mGycm TECHNIQUE: Transaxial images were obtained from the dome of the diaphragm to the symphysis pubis without oral contrast. Oral and amp;amp; IV Gastrografin and amp;amp; 100mL Isovue-370 100 was administered. Sagittal and coronal images were reconstructed. Individualized dose optimization techniques were used for this CT. COMPARISON: Comparison is made with prior study dated November 17, 2018. FINDINGS: The visualized lung bases are unremarkable. The visualized portions of the heart are within normal limits. There is decreased attenuation of the liver consistent with steatosis. The patient is status post cholecystectomy. The common bile duct measures 1.2 cm distally. Normal spleen. Normal pancreas. Normal bilateral adrenal glands. Multiple bilateral nonobstructive intrarenal calculi. Normal visualized stomach. Surgical clips are seen in the right lower quadrant in keeping with history of prior ileal resection. There are multiple colonic diverticula consistent with diverticulosis. There are surgical clips in the region of the appendix consistent with a prior appendectomy. Normal abdominal aorta. Normal inferior vena cava. There is borderline retroperitoneal lymphadenopathy with enlarged nodes no greater than 10mm in the short axis diameter. Normal urinary bladder. There is absence of the uterus consistent with a prior hysterectomy. 2 cm cyst in the right ovary. There is a small umbilical hernia containing fat. Normal osseous structures. CT/Abdomen/Pelvis WITH Contrast IMPRESSION: Fatty infiltration of the liver. Status post cholecystectomy, hysterectomy and appendectomy. Prior surgical resection of the distal ileum. 2 cm right ovarian cyst. Electronically Signed: Greg Reeder, at 12:42 EST , Service support ,
--- NOTE | 2019-02-08 09:38 | ED.DCSUM_ITS ---
History of Present Illness Chief Complaint: Abd Pain Detail of Chief Complaint: Abdominal pain, vomiting Informant: Patient Onset: Yesterday Current Severity: Moderate Maximum Severity: Moderate Narrative: Patient has a history of Crohn's disease. She developed lower abdominal cramping last evening and went to bed with a heating pad. She continued to have pain this morning. She did have a small bowel movement followed by nausea and vomiting. She presented because her vomitus looks like stool and she was concerned. She has not noted a fever or chills. She has had multiple abdominal surgeries including ileum resection, left ovary, appendectomy, cholecystomy, partial hysterectomy. - Past Medical History (1) Complex ovarian cyst Status: Chronic (2) Crohn disease Status: Chronic Past Medical History - Allergies and Home Meds Allergies/Adverse Reactions: Allergies No Known Allergies Allergy (Verified 02/08/19 09:26) Primary Care Physician: Lindsey Bain MD [Primary Care Provider] - Prior records reviewed: Yes Surgical History: appendectomy, cholecystectomy, hysterectomy, - - Small bowel resection, section Lives: Spouse/ Significant Other Smoking Status: Never smoker Review of Systems General: Denies: Chills, Fever Eyes: Denies: Visual changes - bilaterally ENT: Denies: Bilateral ear pain Cardiovascular: Denies: Chest pain Respiratory: Denies: Dyspnea Gastrointestinal: Reports: Abdominal pain, Nausea, Vomiting Genitourinary: Denies: Dysuria Skin: Denies: Rash Neurological: Denies: Headache Hematologic: Denies: Easy bruising, Easy bleeding Allergy: Denies: Uticaria Physical Exam Vital Signs/Narrative: Vital Signs Temp Pulse Resp BP Pulse Ox 02/08/19 09:27 98.0 F 112 H 17 151/110 H 97 Inital Vital Signs reviewed: Yes General: Well nourished, Well developed Head: Normocephalic ENT: Moist mucous membranes Cardiovascular: Regular rhythm, Tachycardia Respiratory: No distress, CTA bilaterally Abdomen: Soft, Tender - Mid abdominal tenderness to palpation., Hypoactive bowel sounds. Negative for: Guarding, Rebound tenderness Extremities: Nontender Skin: Normal color Neurological: Alert, Oriented x3 Psychological: Normal affect Diagnostic/Tx/Re-eval Impressions Abdomen/Pelvis CT 02/08/19 09:37 IMPRESSION: Fatty infiltration of the liver. Status post cholecystectomy, hysterectomy and appendectomy. Prior surgical resection of the distal ileum. 2 cm right ovarian cyst. Electronically Signed: Greg Reeder, at 12:42 EST , Service support , 02/08/19 09:37 Abdomen/Pelvis WITH Contrast [CT] Stat Laboratory Results 02/08/19 02/08/19 02/08/19 10:25 10:25 11:40 WBC 5.4 RBC 4.34 Hgb 13.5 Hct 40.5 MCV 93.3 MCH 31.1 MCHC 33.3 RDW Std Deviation 45.9 H RDW Coeff of Gordon 13.5 Plt Count 198 MPV 10.8 Immature Gran % (Auto) 0.400 Neut % (Auto) 55.1 Lymph % (Auto) 32.1 [place] % (Auto) 10.1 H Eos % (Auto) 1.7 Baso % (Auto) 0.6 Absolute Neuts (auto) 3.0 Absolute Lymphs (auto) 1.72 Nucleated RBC % 0 Sodium 141 Potassium 4.3 Chloride 109 H Carbon Dioxide 25.0 Anion Gap 7 BUN 7 Creatinine 0.83 Estim Creat Clear Calc 80.97 Est GFR (MDRD) Af Amer 96 Est GFR (MDRD) Non-Af 80 BUN/Creatinine Ratio 8.5 L Glucose 104 Calcium 9.1 Total Bilirubin 0.50 Direct Bilirubin 0.13 AST 52 H ALT 50 Alkaline Phosphatase 84 Total Protein 7.1 Albumin 3.8 Globulin 3.3 Lipase 133 Urine Color Yellow Urine Clarity Sl. Cloudy Urine pH 6.5 Ur Specific [place] 1.010 Urine Protein Negative Urine Glucose (UA) Normal Urine Ketones Negative Urine Occult Blood 10 H Urine Nitrite Negative Urine Bilirubin Negative Urine Urobilinogen Normal Ur Leukocyte Esterase 100 H Urine RBC 0-5 SEEN Urine WBC 10-25 SEEN Ur Squamous Epith Cells 10-25 SEEN Urine Bacteria 1+ Urine Mucus 0 SEEN - Medical Decision Making Patient was given morphine and Zofran followed by a dose of Phenergan. On repeat evaluation she is resting comfortably. Test results are discussed with her. She does have some white blood cells noted in her urine but has just as many epithelial cells. She does not have dysuria or signs of UTI. I advised her that if her symptoms persist or she develops dysuria she is to have her urine rechecked. She will be given a prescription for [place] and Zofran for home. She is to follow bland diet. ED Disposition - Plan for ED Patient: Disposition: Home or Assisted Living Diagnosis: Abdominal pain, Ovarian cyst, Vomiting Instructions: ABDOMINAL PAIN, Unknown Cause, (Female) Prescriptions: Hydrocodone Bitart/Apap 5-325 [[place] 5MG-325MG] 1 tablet PO Q6H PRN PRN 3 Days #10 tablet PRN Reason: Pain proMETHazine tablet [Phenergan] 25 mg PO Q6H PRN PRN #10 tablet PRN Reason: Nausea Referrals: Lindsey Bain MD [Primary Care Provider] - 3-5 Days if not improving
[2019-02-08] MEDS: 0.9% Normal Saline 1,000 ML 150 ML IV (10:23)
[2019-02-08] MEDS: Morphine 4 MG/ML Syringe IV (10:28)
[2019-02-08] MEDS: Ondansetron 4 MG/2 ML Vial IV (10:28)
[2019-02-08 10:34] LABS: Absolute Lymphocyte Count 1.72 X10^3/uL (0.83-4.51); Basophil# 0.03 X10^3/uL; Basophil% 0.6 % (0-1); Eosinophil# 0.09 X10^3/uL; Eosinophils% 1.7 % (0-5); Hematocrit 40.5 % (37-47); Hemoglobin 13.5 g/dL (12.0-15.0); Lymphocyte # 1.72 X10^3/ul (4.0); Lymphocyte % 32.1 % (19-41); Mean Corp Hgb Conc 33.3 g/dL (32-36); Mean Corpuscular Hgb 31.1 pg (27.0-32.0); Mean Corpuscular Volume 93.3 fL (81-99); Mean Platelet Vol. 10.8 fl (6.2-12.0); Monocyte# 0.54 X10^3/uL; Monocyte% 10.1 % (0-10); NRBC Flagged by Analyzer 0 % (0-5); Neutrophil # 2.96 X10^3/uL (2.7-7.7); Neutrophil % 55.1 % (47-70); Platelet Count 198 K/mm3 (150-450); RBC Distribution Width CV 13.5 % (11.6-14.6); RBC Distribution Width SD 45.9 fl (35.1-43.9); Red Blood Count 4.34 M/mm3 (4.2-5.4); White Blood Count 5.4 K/mm3 (4.4-11.0)
[2019-02-08 10:51] LABS: AST(SGOT) 52 U/L (15-37); Alanine Aminotransfer ALT/SGPT 50 U/L (13-56); Albumin, Serum 3.8 g/dL (3.2-5.0); Alkaline Phosphatase 84 U/L (45-117); Anion Gap 7 (5-15); BUN 7 mg/dL (7-18); BUN/Creat Ratio 8.5 RATIO (10-20); Bilirubin, Direct 0.13 mg/dL (0.00-0.30); Calcium,Total 9.1 mg/dL (8.5-10.1); Chloride 109 mmol/L (98-107); Creatinine, Serum 0.83 mg/dL (0.55-1.02); EST Glomerular Filtration Rate 80 mL/min (>60); Est Glom Filt Rate - Afr Amer 96 mL/min (>60); Estimated Creatinine Clearance 80.97 ml/min; Globulin 3.3 g/dL (2.2-4.2); Glucose 104 mg/dL (74-106); Lipase 133 U/L (73-393); Potassium 4.3 mmol/L (3.5-5.1); Protein, Total 7.1 g/dL (6.4-8.2); Sodium Level 141 mmol/L (136-145)
[2019-02-08] MEDS: proMETHazine 25 MG/ML Syringe 12.5 MG IV (11:42)
[2019-02-08 11:43] LABS: Mucous, Urine 0 SEEN /hpf (<or=2+)
[2019-02-08 11:46] LABS: Color, Urine Yellow (Yellow); Glucose, Dipstick Normal (Normal); Ketone-Dipstick Negative (Negative); Leukocyte Esterase-Dipstick 100 /ul (Negative); Nitrite-Dipstick Negative (Negative); Occult Blood-Urine 10 /ul (Negative); Protein-Dipstick Negative (Negative); Urine Bilirubin Dipstick Negative (Negative); Urine Clarity Sl. Cloudy (Clear); Urine Urobilinogen Normal (Normal); Urine pH 6.5 (5.0 - 8.0)
[2019-02-08 11:52] LABS: Bacteria 1+ /hpf (None Seen); Red Blood Cells-Urine 0-5 SEEN /hpf (0-5); Squamous Epithelial Cells - UA 10-25 SEEN /hpf (5-10); White Blood Cells 10-25 SEEN /hpf (0-5)
[2019-02-08 12:28] VITALS: RESP 18
== END 2019-02-08 13:21 | disposition home or self-care (01) ==
PROVIDERS: Emergency Provider Emergency Medicine; Family Provider Family Medicine; PCP Family Medicine
DX: R10.9 Unspecified abdominal pain (principal); N83.201 Unspecified ovarian cyst, right side; R11.10 Vomiting, unspecified; K50.90 Crohn's disease, unspecified, without complications; K76.0 Fatty (change of) liver, not elsewhere classified; Z90.49 Acquired absence of other specified parts of digestive tract; Z90.710 Acquired absence of both cervix and uterus
CPT/HCPCS: 74177; 80048; 80076; 81001; 83690; 85025; 96361; 96374; 96375; 99283; J7030; Q9967; A4216; J2405

== ENCOUNTER → 2019-02-11 11:24 | Outpatient (CLI) | payer OTHER, SELFPAY ==
[2019-01-14 11:57] VITALS: BMI 28.4
[2019-02-08 09:27] VITALS: BMI 27.4
[2019-02-11 11:49] VITALS: BP 127/76; PULSE 85; RESP 16; TEMP 36.4; O2SAT 97; BMI 28.7
[2019-02-11 12:34] VITALS: BP 118/76; PULSE 79; TEMP 36.6
[2019-02-11 12:51] VITALS: BP 117/70; PULSE 79; TEMP 36.9
[2019-02-11 13:05] VITALS: BP 119/73; PULSE 82; TEMP 36.5
[2019-02-11 13:25] VITALS: BP 125/58; PULSE 79; TEMP 36.6
[2019-02-11 14:30] VITALS: BP 119/67; TEMP 27.7
== END ==
PROVIDERS: Family Provider Family Medicine; PCP Family Medicine; Referring Provider Internal Medicine; Visit Provider Internal Medicine
DX: K50.90 Crohn's disease, unspecified, without complications (principal)
CPT/HCPCS: 96413; J7050; A4216; Q5103

== ENCOUNTER → 2019-03-11 11:29 | Outpatient (CLI) | payer OTHER, SELFPAY ==
[2019-02-11 11:49] VITALS: BMI 28.7
[2019-03-11] VITALS (7 sets, daily range): BP systolic 119–135; BP diastolic 71–83; PULSE 80–94; RESP 18; TEMP 36.8; O2SAT 99–100; BMI 29.0
== END ==
PROVIDERS: Family Provider Family Medicine; PCP Family Medicine; Visit Provider Internal Medicine
DX: K50.90 Crohn's disease, unspecified, without complications (principal)
CPT/HCPCS: 96413; J7050; A4216; Q5103

== ENCOUNTER → 2019-04-08 09:02 | Outpatient (CLI) | payer OTHER, SELFPAY ==
[2019-03-11 11:43] VITALS: BMI 29.0
[2019-04-08 09:08] VITALS: BP 119/80; PULSE 86; RESP 16; TEMP 36.6; O2SAT 96; BMI 28.7
[2019-04-08 09:56] VITALS: BP 126/78; PULSE 79; RESP 16; TEMP 36.6
[2019-04-08 10:14] VITALS: BP 130/78; PULSE 85; TEMP 36.6
[2019-04-08 10:31] VITALS: BP 126/76; PULSE 86; RESP 16; TEMP 36.7; O2SAT 96
[2019-04-08 10:46] VITALS: BP 124/79; PULSE 89; RESP 16; TEMP 36.6
== END ==
PROVIDERS: Family Provider Family Medicine; PCP Family Medicine; Referring Provider Internal Medicine; Visit Provider Internal Medicine
DX: K50.90 Crohn's disease, unspecified, without complications (principal)
CPT/HCPCS: 96413; J7050; A4216; Q5103

== ENCOUNTER → 2019-05-06 11:53 | Outpatient (CLI) | payer OTHER, SELFPAY ==
[2019-04-08 09:08] VITALS: BMI 28.7
[2019-05-06 12:17] VITALS: BP 120/81; PULSE 85; RESP 16; TEMP 36.8; O2SAT 98; BMI 28.7
== END ==
PROVIDERS: PCP Family Medicine; Referring Provider Internal Medicine; Visit Provider Internal Medicine
DX: K50.90 Crohn's disease, unspecified, without complications (principal)
CPT/HCPCS: 96413; J7050; A4216; Q5103

== ENCOUNTER → 2019-06-03 11:56 | Outpatient (CLI) | payer OTHER, SELFPAY ==
[2019-04-08 09:08] VITALS: BMI 28.7
[2019-05-06 12:17] VITALS: BMI 28.7
[2019-06-03 12:04] VITALS: BP 122/80; PULSE 93; RESP 16; TEMP 36.3; O2SAT 94; BMI 28.7
== END ==
PROVIDERS: PCP Family Medicine; Referring Provider Internal Medicine; Visit Provider Internal Medicine
DX: K50.90 Crohn's disease, unspecified, without complications (principal)
CPT/HCPCS: 96413; J7050; A4216; Q5103

== ENCOUNTER → 2019-07-01 11:58 | Outpatient (CLI) | payer OTHER, SELFPAY ==
[2019-06-03 12:04] VITALS: BMI 28.7
[2019-07-01 12:25] VITALS: BP 121/75; PULSE 90; RESP 16; TEMP 36.7; O2SAT 96; BMI 28.0
[2019-07-01] MEDS: 0.9% NaCl Peripheral Flush Adult/Peds IV (12:52)
== END ==
PROVIDERS: PCP Family Medicine; Referring Provider Internal Medicine; Visit Provider Internal Medicine
DX: K50.90 Crohn's disease, unspecified, without complications (principal)
CPT/HCPCS: 96413; J7050; A4216; Q5103

== ENCOUNTER → 2019-07-29 11:54 | Outpatient (CLI) | payer OTHER, SELFPAY ==
[2019-07-01 12:25] VITALS: BMI 28.0
[2019-07-29 12:07] VITALS: BP 113/77; PULSE 85; RESP 16; TEMP 37.2; O2SAT 99; BMI 28.3
[2019-07-29] MEDS: 0.9% NaCl Peripheral Flush Adult/Peds IV (12:13)
== END ==
PROVIDERS: PCP Family Medicine; Referring Provider Internal Medicine; Visit Provider Internal Medicine
DX: K50.90 Crohn's disease, unspecified, without complications (principal)
CPT/HCPCS: 96413; J7050; A4216; Q5103

== ENCOUNTER → 2019-08-26 11:50 | Outpatient (CLI) | payer OTHER, SELFPAY ==
[2019-07-01 12:25] VITALS: BMI 28.0
[2019-07-29 12:07] VITALS: BMI 28.3
[2019-08-26 12:19] VITALS: BP 125/88; PULSE 82; RESP 16; TEMP 36.9; O2SAT 97; BMI 28.2
[2019-08-26] MEDS: 0.9% NaCl Peripheral Flush Adult/Peds IV (12:27)
== END ==
PROVIDERS: PCP Family Medicine; Referring Provider Internal Medicine; Visit Provider Internal Medicine
DX: K50.90 Crohn's disease, unspecified, without complications (principal)
CPT/HCPCS: 96413; J7050; A4216; Q5103

== ENCOUNTER → 2019-09-23 12:02 | Outpatient (CLI) | payer OTHER, SELFPAY ==
[2019-07-29 12:07] VITALS: BMI 28.3
[2019-08-26 12:19] VITALS: BMI 28.2
[2019-09-23 12:12] VITALS: BP 115/70; PULSE 89; RESP 15; TEMP 37.3; O2SAT 95; BMI 27.9
[2019-09-23] MEDS: 0.9% NaCl Peripheral Flush Adult/Peds IV ×2 (12:21→12:57)
== END ==
PROVIDERS: PCP Family Medicine; Referring Provider Internal Medicine; Visit Provider Internal Medicine
DX: K50.90 Crohn's disease, unspecified, without complications (principal)
CPT/HCPCS: 96413; J7050; A4216; Q5103

== ENCOUNTER → 2019-10-21 11:57 | Outpatient (CLI) | payer OTHER, SELFPAY ==
[2019-09-23 12:12] VITALS: BMI 27.9
[2019-10-21 12:01] VITALS: BP 123/84; PULSE 80; RESP 16; TEMP 36.4; O2SAT 100; BMI 28.8
[2019-10-21] MEDS: 0.9% NaCl Peripheral Flush Adult/Peds IV (12:08)
== END ==
PROVIDERS: PCP Family Medicine; Referring Provider Internal Medicine; Visit Provider Internal Medicine
DX: K50.90 Crohn's disease, unspecified, without complications (principal)
CPT/HCPCS: 96413; J7050; A4216; Q5103

== ENCOUNTER → 2019-11-18 10:57 | Outpatient (CLI) | payer OTHER, SELFPAY ==
[2019-10-21 12:01] VITALS: BMI 28.8
--- NOTE | 2019-11-18 11:03 | BD_ITS ---
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 COMPARISON: None. FINDINGS: Lumbar Spine (L1-L4): g/cm2 (1.149) / T-score (-0.4) / Z-score (-0.4) Findings are suggestive of normal bone density with a low fracture risk. Left Femur Total: g/cm2 (0.908) / T-score (-0.8) / Z-score (-0.5) Left Femoral Neck: g/cm2 (0.846) / T-score (-1.4) / Z-score (-0.8) Right Femur Total: g/cm2 (0.902) / T-score (-0.8) / Z-score (-0.5) Right Femoral Neck: g/cm2 (0.850) / T-score (-1.4) / Z-score (-0.8) BD/Dexa Bone Density Study IMPRESSION: The patient is considered osteopenic as outlined below according to World [place] Organization (WHO) criteria with a low fracture risk. Reference Information: The T-score is the number of standard deviations above or below the standard which is normal for young adults at their peak bone mineral density. The World Health Organization (WHO) interprets the T-scores as follows: Above -1 Normal bone density Between -1 and -2.5 Osteopenia Equal to / or below -2.5 Osteoporosis As a practical clinical guideline, osteopenia may be graded as follows: Mild -1 through -1.5 Moderate -1.6 through -2.0 Severe -2.1 through -2.4 The Z-score is the number of standard deviations above or below age-matched controls. A Z-score of less than -1.5 would be considered abnormal. References: 1. NIH Osteoporosis and Related Bone Diseases http://www.osteo.org 2. International Society for Clinical Densitometry http://www.iscd.org 3. National Osteoporosis Foundation http://www.nof.org Electronically Signed: Greg Reeder, at 14:49 EDT , Service support ,
== END ==
PROVIDERS: PCP Family Medicine; Referring Provider Internal Medicine; Visit Provider Internal Medicine
DX: K50.818 Crohn's disease of both small and large intestine with other complication (principal)
CPT/HCPCS: 77080

== ENCOUNTER → 2019-11-18 11:15 | Outpatient (CLI) | payer OTHER, SELFPAY ==
[2019-09-23 12:12] VITALS: BMI 27.9
[2019-10-21 12:01] VITALS: BMI 28.8
[2019-11-18 12:00] VITALS: BP 139/84; PULSE 85; RESP 16; TEMP 35.8; O2SAT 99; BMI 28.0
[2019-11-18] MEDS: 0.9% NaCl Peripheral Flush Adult/Peds IV (12:27)
== END ==
PROVIDERS: PCP Family Medicine; Referring Provider Internal Medicine; Visit Provider Internal Medicine
DX: K50.90 Crohn's disease, unspecified, without complications (principal)
CPT/HCPCS: 96365; 77080; 96413; J7050; A4216; Q5103

== ENCOUNTER → 2019-12-16 11:44 | Outpatient (CLI) | payer OTHER, SELFPAY ==
[2019-10-21 12:01] VITALS: BMI 28.8
[2019-11-18 12:00] VITALS: BMI 28.0
[2019-12-16 11:53] VITALS: BP 132/80; PULSE 97; RESP 16; TEMP 37.1; O2SAT 99; BMI 28.1
[2019-12-16] MEDS: 0.9% NaCl Peripheral Flush Adult/Peds IV (12:07)
== END ==
PROVIDERS: PCP Family Medicine; Referring Provider Internal Medicine; Visit Provider Internal Medicine
DX: K50.90 Crohn's disease, unspecified, without complications (principal)
CPT/HCPCS: 96413; J7050; A4216; Q5103

== ENCOUNTER → 2019-12-17 14:07 | Outpatient (CLI) | payer OTHER, SELFPAY ==
[2019-12-16 11:53] VITALS: BMI 28.1
== END ==
PROVIDERS: PCP Family Medicine; Referring Provider Chiropractor; Visit Provider Chiropractor
DX: R51 Headache (principal); M99.01 Segmental and somatic dysfunction of cervical region
CPT/HCPCS: 72040

== ENCOUNTER → 2020-01-13 11:56 | Outpatient (CLI) | payer OTHER, SELFPAY ==
[2019-11-18 12:00] VITALS: BMI 28.0
[2019-12-16 11:53] VITALS: BMI 28.1
[2020-01-13 12:05] VITALS: RESP 14; TEMP 36.9; O2SAT 98
[2020-01-13] MEDS: 0.9% NaCl Peripheral Flush Adult/Peds IV (12:16)
== END ==
PROVIDERS: PCP Family Medicine; Referring Provider Internal Medicine; Visit Provider Internal Medicine
DX: K50.90 Crohn's disease, unspecified, without complications (principal)
CPT/HCPCS: 96413; J7050; A4216; Q5103

== ENCOUNTER → 2020-02-10 11:45 | Outpatient (CLI) | payer OTHER, SELFPAY ==
[2019-12-16 11:53] VITALS: BMI 28.1
[2020-02-10 11:55] VITALS: BP 124/81; PULSE 79; RESP 16; TEMP 36.9; O2SAT 99; BMI 29.0
[2020-02-10] MEDS: 0.9% NaCl Peripheral Flush Adult/Peds IV (12:00)
== END ==
PROVIDERS: PCP Family Medicine; Referring Provider Internal Medicine; Visit Provider Internal Medicine
DX: K50.90 Crohn's disease, unspecified, without complications (principal)
CPT/HCPCS: 96413; 96415; J7050; A4216; Q5103

== ENCOUNTER → 2020-03-09 11:47 | Outpatient (CLI) | payer OTHER, SELFPAY ==
[2020-02-10 11:55] VITALS: BMI 29.0
== END ==
PROVIDERS: PCP Family Medicine; Referring Provider Internal Medicine; Visit Provider Internal Medicine
DX: K50.90 Crohn's disease, unspecified, without complications (principal)
CPT/HCPCS: 96413; 96415; J7050; Q5103

== ENCOUNTER → 2020-04-07 12:45 | Outpatient (CLI) | payer OTHER, SELFPAY ==
[2020-02-10 11:55] VITALS: BMI 29.0
[2020-04-07 13:09] VITALS: BP 119/78; PULSE 78; RESP 16; TEMP 36.6; O2SAT 100; BMI 29.5
[2020-04-07] MEDS: 0.9% NaCl Peripheral Flush Adult/Peds IV (13:17)
== END ==
PROVIDERS: PCP Family Medicine; Referring Provider Internal Medicine; Visit Provider Internal Medicine
DX: K50.819 Crohn's disease of both small and large intestine with unspecified complications (principal)
CPT/HCPCS: 96413; J7050; A4216; Q5103

== ENCOUNTER → 2020-05-04 11:40 | Outpatient (CLI) | payer OTHER, SELFPAY ==
[2020-02-10 11:55] VITALS: BMI 29.0
[2020-04-07 13:09] VITALS: BMI 29.5
[2020-05-04 11:49] VITALS: BP 120/84; PULSE 83; RESP 16; TEMP 35.8; O2SAT 100; BMI 29.4
[2020-05-04] MEDS: 0.9% NaCl Peripheral Flush Adult/Peds IV (11:58)
[2020-05-04 15:27] VITALS: BP 125/81; PULSE 85; RESP 16; TEMP 36.4; O2SAT 98
== END ==
PROVIDERS: PCP Family Medicine; Referring Provider Internal Medicine; Visit Provider Internal Medicine
DX: K50.819 Crohn's disease of both small and large intestine with unspecified complications (principal)
CPT/HCPCS: 96413; J7050; A4216; Q5103

== ENCOUNTER 2020-06-02 11:52 | Outpatient (CLI) | payer OTHER, SELFPAY ==
[2020-04-07 13:09] VITALS: BMI 29.5
[2020-05-04 11:49] VITALS: BMI 29.4
[2020-06-02 12:05] VITALS: BP 116/75; PULSE 86; RESP 16; TEMP 37.1; O2SAT 100; BMI 29.5
[2020-06-02] MEDS: 0.9% NaCl Peripheral Flush Adult/Peds IV (12:15)
== END 2020-06-02 16:30 | disposition home or self-care (01) ==
LOC: MEDOUTP 11:53
PROVIDERS: PCP Family Medicine; Referring Provider Internal Medicine; Visit Provider Internal Medicine
DX: K50.819 Crohn's disease of both small and large intestine with unspecified complications (principal)
CPT/HCPCS: 96413; J7050; A4216; Q5103

== ENCOUNTER → 2020-06-30 11:53 | Outpatient (CLI) | payer OTHER, SELFPAY ==
[2020-05-04 11:49] VITALS: BMI 29.4
[2020-06-29 12:30] VITALS: BMI 29.4
[2020-06-30 12:06] VITALS: BP 120/80; PULSE 90; RESP 16; TEMP 36.8; O2SAT 96; BMI 29.2
[2020-06-30] MEDS: 0.9% NaCl Peripheral Flush Adult/Peds IV (12:14)
== END ==
PROVIDERS: PCP Family Medicine; Referring Provider Internal Medicine; Visit Provider Internal Medicine
DX: K50.819 Crohn's disease of both small and large intestine with unspecified complications (principal)
CPT/HCPCS: 96413; J7050; A4216; Q5103

== ENCOUNTER → 2020-07-27 | Outpatient (CLI) | payer OTHER, SELFPAY ==
[2020-06-30 12:06] VITALS: BMI 29.2
== END | disposition home or self-care (01) ==
PROVIDERS: PCP Family Medicine; Referring Provider Family Medicine; Visit Provider Family Medicine
DX: B37.3 Candidiasis of vulva and vagina (principal)
CPT/HCPCS: 87070; 87205

== ENCOUNTER → 2020-07-28 11:50 | Outpatient (CLI) | payer OTHER, SELFPAY ==
[2020-06-29 12:30] VITALS: BMI 29.4
[2020-06-30 12:06] VITALS: BMI 29.2
[2020-07-28 12:16] VITALS: BP 110/69; PULSE 96; RESP 16; TEMP 36.2; O2SAT 98; BMI 29.3
[2020-07-28] MEDS: 0.9% NaCl Peripheral Flush Adult/Peds IV (12:22)
== END ==
PROVIDERS: PCP Family Medicine; Referring Provider Internal Medicine; Visit Provider Internal Medicine
DX: K50.819 Crohn's disease of both small and large intestine with unspecified complications (principal)
CPT/HCPCS: 96413; 96415; J7050; A4216; Q5103

== ENCOUNTER → 2020-08-24 11:48 | Outpatient (CLI) | payer OTHER, SELFPAY ==
[2020-06-30 12:06] VITALS: BMI 29.2
[2020-07-28 12:16] VITALS: BMI 29.3
[2020-08-24 12:23] VITALS: BP 111/62; PULSE 88; RESP 16; TEMP 36.4; O2SAT 97; BMI 29.5
[2020-08-24] MEDS: 0.9% NaCl Peripheral Flush Adult/Peds IV (12:31)
[2020-08-24 15:09] VITALS: BP 105/66; PULSE 89; RESP 16; TEMP 37.2; O2SAT 97
== END ==
PROVIDERS: PCP Family Medicine; Referring Provider Internal Medicine; Visit Provider Internal Medicine
DX: K50.819 Crohn's disease of both small and large intestine with unspecified complications (principal)
CPT/HCPCS: 96413; J7050; A4216; Q5103

== ENCOUNTER → 2020-09-22 11:43 | Outpatient (CLI) | payer OTHER, SELFPAY ==
[2020-07-28 12:16] VITALS: BMI 29.3
[2020-08-24 12:23] VITALS: BMI 29.5
[2020-09-22 11:52] VITALS: BP 120/79; PULSE 84; RESP 16; TEMP 36.9; O2SAT 98; BMI 29.3
[2020-09-22] MEDS: 0.9% NaCl Peripheral Flush Adult/Peds IV (12:01)
== END ==
PROVIDERS: PCP Family Medicine; Referring Provider Internal Medicine; Visit Provider Internal Medicine
DX: K50.90 Crohn's disease, unspecified, without complications (principal)
CPT/HCPCS: 96413; J7050; A4216; Q5103

== ENCOUNTER → 2020-10-20 11:54 | Outpatient (CLI) | payer OTHER, SELFPAY ==
[2020-09-22 11:52] VITALS: BMI 29.3
[2020-10-20 12:11] VITALS: BP 103/70; PULSE 78; RESP 16; TEMP 36.6; O2SAT 98
[2020-10-20] MEDS: 0.9% NaCl Peripheral Flush Adult/Peds IV (12:33)
[2020-10-20 15:15] VITALS: BP 117/69; PULSE 90; RESP 16; TEMP 37.2
== END ==
PROVIDERS: PCP Family Medicine; Referring Provider Internal Medicine; Visit Provider Internal Medicine
DX: K50.819 Crohn's disease of both small and large intestine with unspecified complications (principal)
CPT/HCPCS: 96413; J7050; A4216; Q5103

== ENCOUNTER → 2020-11-17 11:48 | Outpatient (CLI) | payer OTHER, SELFPAY ==
[2020-09-22 11:52] VITALS: BMI 29.3
[2020-11-17 12:00] VITALS: BP 114/76; PULSE 86; RESP 16; TEMP 36.8; O2SAT 97; BMI 29.2
[2020-11-17] MEDS: 0.9% NaCl Peripheral Flush Adult/Peds IV (12:08)
== END ==
PROVIDERS: PCP Family Medicine; Referring Provider Internal Medicine; Visit Provider Internal Medicine
DX: K50.90 Crohn's disease, unspecified, without complications (principal)
CPT/HCPCS: 96413; J7050; A4216; Q5103

== ENCOUNTER → 2020-12-15 12:06 | Outpatient (CLI) | payer OTHER, SELFPAY ==
[2020-12-15 12:16] VITALS: BP 130/76; PULSE 85; RESP 16; TEMP 37.1; O2SAT 95; BMI 29.4
[2020-12-15] MEDS: 0.9% NaCl Peripheral Flush Adult/Peds IV (12:43)
== END ==
PROVIDERS: PCP Family Medicine; Referring Provider Internal Medicine; Visit Provider Internal Medicine
DX: K50.819 Crohn's disease of both small and large intestine with unspecified complications (principal)
CPT/HCPCS: 96413; J7050; A4216; Q5103

== ENCOUNTER → 2021-01-12 12:00 | Outpatient (CLI) | payer OTHER, SELFPAY ==
[2021-01-12 12:06] VITALS: BMI 29.5
[2021-01-12] MEDS: 0.9% NaCl Peripheral Flush Adult/Peds IV (12:11)
[2021-01-12 12:16] VITALS: BP 128/81; PULSE 85; RESP 16; TEMP 36.9; O2SAT 97
== END ==
PROVIDERS: PCP Family Medicine; Referring Provider Internal Medicine; Visit Provider Internal Medicine
DX: K50.00 Crohn's disease of small intestine without complications (principal)
CPT/HCPCS: 96413; J7050; A4216; Q5103

== ENCOUNTER → 2021-02-23 11:36 | Outpatient (CLI) | payer OTHER, SELFPAY ==
[2021-02-23 11:40] VITALS: BP 112/71; PULSE 107; RESP 16; O2SAT 99; BMI 26.9
[2021-02-23] MEDS: 0.9% NaCl Peripheral Flush Adult/Peds IV (12:10)
== END ==
PROVIDERS: PCP Family Medicine; Referring Provider Internal Medicine; Visit Provider Internal Medicine
DX: K50.00 Crohn's disease of small intestine without complications (principal)
CPT/HCPCS: 96413; J7050; A4216; Q5103

== ENCOUNTER → 2021-03-22 10:14 | Outpatient (CLI) | payer OTHER, SELFPAY ==
[2021-03-22 10:36] VITALS: BP 113/73; PULSE 90; RESP 16; TEMP 36.5; O2SAT 100; BMI 28.0
[2021-03-22] MEDS: 0.9% NaCl Peripheral Flush Adult/Peds IV (10:39)
== END ==
PROVIDERS: PCP Family Medicine; Referring Provider Internal Medicine; Visit Provider Internal Medicine
DX: K50.00 Crohn's disease of small intestine without complications (principal)
CPT/HCPCS: 96413; J7050; A4216; Q5103

== ENCOUNTER 2021-04-16 12:10 | Outpatient (CLI) | payer OTHER, SELFPAY ==
[2021-04-16 14:09] LABS: Hepatitis B Surface Antibody Reactive; Hepatitis B Surface Antigen Non-Reactive (Nonreactive); Hepatitis C Antibody Non-Reactive (Nonreactive)
[2021-04-18 22:06] LABS: Hepatitis B Core Ab Total Negative (Negative); QNTFERON TB Mitogen Value > 10.00 IU/mL (.); QNTFERON TB Nil Value 0 IU/mL (.); QNTFERON TB1+ Ag Value 0 IU/mL (.); QNTFERON TB2+ Ag Value 0 IU/mL (.)
[2021-04-19 07:46] LABS: Hepatitis B Core AB IgM Negative (Negative); QNTIFERON TB Positive Criteria Negative (Negative)
== END 2021-04-16 23:59 | disposition short-term general hospital (02) ==
LOC: LAB 12:11
PROVIDERS: PCP Family Medicine; Visit Provider Internal Medicine
DX: K50.00 Crohn's disease of small intestine without complications (principal)
CPT/HCPCS: 36415; 86480; 86704; 86705; 86706; 86803; 87340

== ENCOUNTER 2022-10-02 10:48 | Emergency (ER) | payer OTHER, SELFPAY ==
[2022-10-02 10:49] VITALS: BP 194/94; PULSE 97; RESP 16; TEMP 36.6; O2SAT 100; BMI 28.7
[2022-10-02] MEDS: 0.9% Normal Saline 1,000 ML 1000 ML IV (12:18)
[2022-10-02] MEDS: Ondansetron 4 MG/2 ML Vial IV (12:18)
[2022-10-02] MEDS: Morphine 4 MG/ML Syringe IV (12:18)
[2022-10-02 12:29] LABS: Absolute Lymphocyte Count 1.66 X10^3/uL (0.83-4.51); Absolute Neutrophil Count 2.4 X10^3/uL (2.0-7.7); Basophil# 0.02 X10^3/uL; Basophil% 0.4 % (0-1); Eosinophil# 0.09 X10^3/uL; Hematocrit 38.3 % (37-47); Hemoglobin 13.1 g/dL (12.0-15.0); Lymphocyte # 1.66 X10^3/ul (0.83-4.51); Lymphocyte % 36.7 % (19-41); Mean Corp Hgb Conc 34.2 g/dL (32-36); Mean Corpuscular Hgb 32.3 pg (27.0-32.0); Mean Corpuscular Volume 94.6 fL (81-99); Mean Platelet Vol. 10.9 fl (6.2-12.0); Monocyte# 0.39 X10^3/uL; Monocyte% 8.6 % (0-10); NRBC Flagged by Analyzer 0 % (0-5); Neutrophil # 2.35 X10^3/uL (2.7-7.7); Neutrophil % 52.1 % (47-70); Platelet Count 147 K/mm3 (150-450); RBC Distribution Width CV 13.6 % (11.6-14.6); RBC Distribution Width SD 46.9 fl (35.1-43.9); Red Blood Count 4.05 M/mm3 (4.2-5.4); White Blood Count 4.5 K/mm3 (4.4-11.0)
[2022-10-02 12:45] LABS: ALB/GLOB Ratio 0.9 RATIO (0.9-2.4); AST(SGOT) 42 U/L (15-37); Alanine Aminotransfer ALT/SGPT 39 U/L (13-56); Albumin, Serum 3.7 g/dL (3.2-5.0); Alkaline Phosphatase 81 U/L (45-117); Anion Gap 5 (5-15); BUN 10 mg/dL (7-18); BUN/Creat Ratio 11.9 RATIO (10-20); Calcium,Total 8.7 mg/dL (8.5-10.1); Chloride 110 mmol/L (98-107); Creatinine, Serum 0.84 mg/dL (0.55-1.02); EST Glomerular Filtration Rate 77 mL/min (>60); Est Glom Filt Rate - Afr Amer 93 mL/min (>60); Estimated Creatinine Clearance 76.67 ml/min; Glucose 96 mg/dL (74-106); Potassium 3.6 mmol/L (3.5-5.1); Protein, Total 7.7 g/dL (6.4-8.2); Sodium Level 141 mmol/L (136-145)
[2022-10-02 12:50] LABS: Internal QC Validated? YES +Cl - CLEAR BKGD; Pregnancy, Serum, hCG Quali. NEGATIVE Negative
--- NOTE | 2022-10-02 13:25 | CT_ITS ---
STUDY: CT ABDOMEN AND PELVIS WITH CONTRAST REASON FOR EXAM: Female, 47 years old. Abd pain, Crohn''s -- IV PO Contrast RADIATION DOSAGE (If Supplied By Facility): CTDIvol = ( 12.63 ) mGy, DLP = ( 690.95 ) mGycm TECHNIQUE: Transaxial images were obtained from the dome of the diaphragm to the symphysis pubis with oral contrast. Oral and amp; IV Gastrografin and amp; 100mL Isovue-300 was administered. Sagittal and coronal images were reconstructed. Individualized dose optimization techniques were used for this CT. COMPARISON: Comparison is made with prior study dated February 08, 2019. FINDINGS: The visualized lung bases are unremarkable. The visualized portions of the heart are within normal limits. There is decreased attenuation of the liver consistent with steatosis. There are surgical clips in the gallbladder fossa consistent with a prior cholecystectomy. Normal spleen. Normal pancreas. Normal bilateral adrenal glands. There are multiple bilateral nonobstructive intrarenal calculi. Normal visualized stomach. Surgical anastomosis in the right lower quadrant and compared with prior ileal surgery and resection. Mild degree of mural thickening and thickening of the haustral pattern in the cecum and ascending colon. Colitis should be ruled out. There are multiple colonic diverticula consistent with diverticulosis. The appendix is visualized and appears normal. Normal abdominal aorta. Normal inferior vena cava. Normal retroperitoneum. Normal urinary bladder. There is absence of the uterus consistent with a prior hysterectomy. There is a small umbilical hernia containing fat. Normal osseous structures. CT/Abdomen/Pelvis WITH Contrast IMPRESSION: Thickening of the wall of the right hemicolon as well as the haustral pattern suggestive of a inflammatory change. Small lymph nodes are seen in the mesentery in the right lower quadrant. Multiple bilateral nonobstructive intrarenal calculi. Diffuse fatty infiltration of the liver. Electronically Signed: Greg Reeder MD at 14:11 EDT ,
--- NOTE | 2022-10-02 15:05 | EDS_ITS ---
HPI HPI - GI History of Present Illness Chief Complaint: Abd Pain Informant: patient Abdominal Pain/Flank Pain Onset: Days (4-5) Context: Gradual Onset Timing: Continuous Quality: Aching Location: Diffuse Current Severity: Severe Maximum Severity: Severe Worsened by: Nothing Relieved by: Nothing Nausea/Vomiting/Emesis GI Symptom: Positive for Nausea; Negative for Vomiting Diarrhea/Melena/Hematochezia GI Symptom: Positive for Diarrhea; Negative for Melena or Hematochezia Onset: Days (4-5) Stool Quality: Positive for Loose Severity: Moderate Associated Symptoms Associated Symptoms: Negative for Dysuria, Frequency, Hematuria or Urgency Narrative Narrative: Patient has a history of Crohn's disease, for the past 4 or 5 days she has had gradual onset and worsening of diarrhea, diffuse abdominal pain, and some nausea but no vomiting. The diarrhea has actually curbed in the not quite as bad in the last day or 2 but still present in general. No blood. No melena. She has a history of a partial bowel resection due to Crohn's. She sees a apartment maintenance technician in [place]; she called them and they referred her to the emergency department if she thought she was having a lot of pain. [facility] Medical History Acute sinusitis, unspecified Cirrhosis Crohn disease iliam resection Home Medications chlordiazepoxide-clidinium 5 mg-2.5 mg capsule 1 ea PO BID PRN Pain 07/09/17 [History Last Taken Unknown] colestipol 1 gram tablet 2 g PO BID 07/09/17 [History Last Taken Unknown] ondansetron 4 mg disintegrating tablet 4 mg PO Q8H PRN PRN Nausea 07/09/17 [History Last Taken Unknown] cyanocobalamin (vitamin B-12) 1,000 mcg/mL injection kit 1,000 mcg IM ONCE 07/10/17 [History Last Taken Unknown] cyclobenzaprine 10 mg tablet 10 mg PO TID 12/01/17 [History Last Taken Unknown] acetaminophen 500 mg tablet 500 mg PO Q6H PRN PRN Pain 11/16/18 [History Last Taken Unknown] infliximab-dyyb 100 mg intravenous solution 38 ml IV QMONTH 11/16/18 [History Last Taken Unknown] fluconazole 150 mg tablet (Diflucan) 150 mg PO .COMPLEX #7 tabs 02/15/19 [Rx Last Taken Unknown] azathioprine 50 mg tablet 50 mg PO DAILY@0800 12/16/19 [History Last Taken Unknown] hyoscyamine sulfate 0.375 mg capsule,extended release 12 hr 0.375 mg PO BID PRN cramping 11/17/20 [History Last Taken Unknown] amoxicillin 875 mg-potassium clavulanate 125 mg tablet 1 tab PO BID #20 tabs 07/31/22 [Rx Last Taken Unknown] benzonatate 200 mg capsule 200 mg PO TID PRN cough #20 caps 07/31/22 [Rx Last Taken Unknown] levofloxacin 500 mg tablet 500 mg PO DAILY #7 tabs 10/02/22 [Rx Last Taken Unknown] metronidazole 500 mg tablet 500 mg PO BID #20 tabs 10/02/22 [Rx Last Taken Unknown] ondansetron 4 mg disintegrating tablet 8 mg (2 x 4 mg) PO Q8H PRN PRN Nausea #20 tabs 10/02/22 [Rx Last Taken Unknown] oxycodone-acetaminophen 5 mg-325 mg tablet 1 tab PO Q6H PRN PRN Pain 3 days #12 TABLETS 10/02/22 [Rx Last Taken Unknown] prednisone 10 mg tablet 10 mg PO UD #34 tabs 10/02/22 [Rx Last Taken Unknown] Allergy/AdvReac Type Severity Reaction Status Date / Time No Known Allergies Allergy Verified 10/02/22 10:50 Family History Brother Lymphoma Father Cancer Surgical History Abnormal Pap smear of cervix H/O laparoscopy (~07/17/17) H/O unilateral oophorectomy History of partial colectomy Hx of lithotripsy S/P appendectomy S/P S/P cholecystectomy S/P partial hysterectomy Social History Smoking Status: Never smoker alcohol intake: never substance use type: does not use caffeine: Yes what type of physical activity do you participate in: none seatbelt use: always do you feel safe at home: Yes additional social history: - [employer]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 ROS ROS ED Constitutional Constitutional ED: Denies chills or fever(s) Eyes Eyes: Denies change in vision or diplopia ENT ENT ED: Denies rhinorrhea or sore throat Cardiovascular Cardiovascular: Denies chest pain or palpitations Respiratory/Chest Respiratory/Chest: Denies cough or dyspnea Gastrointestinal Gastrointestinal: Reports abdominal pain, diarrhea and nausea; Denies hematemesis, hematochezia, melena or vomiting Genitourinary Genitourinary ED: Denies dysuria or hematuria Musculoskeletal Musculoskeletal: Denies back pain or neck pain Integumentary Denies abscess or rash Neurologic Neurologic: Denies headache(s), paresthesias or weakness Psychiatric Psychiatric: Denies anxiety or suicidal thoughts EXAM Physical Exam Const Vital Signs: 10/02/22 10:49 Temperature 97.9 F Temperature Source Temporal Pulse Rate 97 Respiratory Rate 16 Blood Pressure 194/94 H Blood Pressure Mean 127 Pulse Ox 100 Oxygen Delivery Method Room Air Positive well nourished and well developed General Appearance ED: well developed and NAD HEENT Reports moist mucous membranes normocephalic and atraumatic Eyes PERRL and EOMs intact bilaterally Neck full ROM and supple Resp normal respiratory effort and clear to auscultation bilaterally Cardio regular rate, regular rhythm and no murmurs Rate: Negative for tachycardic GI non-distended GI Narrative: Diffuse moderate tenderness throughout the abdomen without guarding or rebound tenderness. No [place] sign no [place] Mauro sign. Auscultation: normoactive bowel sounds Palpation: soft Back/Spine no CVA tenderness General Back: other FROM Extremity normal to inspection General Extremety ED: Negative for edema, pulses abnormal or tenderness General Extremity: Negative for edema or pulses abnormal Neuro oriented x3, CN's II-XII intact bilaterally and no sensory deficits noted Sensorium / Orientation: awake and alert Motor Exam: strength 5/5 throughout Skin no rashes or lesions noted and no wounds MDM MDM MDM Narrative Medical decision making narrative: Obtain labs including liver enzymes all of which are unremarkable except for a barely elevated AST at 42, as well as an oral and IV contrasted CT of the abdomen/pelvis. I reviewed the images and the result which I agree with, basically consistent with an exacerbation of Crohn's in the right hemicolon, no signs of complication such as bowel obstruction, abscess, etc. Patient is doing well clinically after treating with IV fluids, Zofran, morphine. She can be treated as an outpatient right now, she does not have severe malabsorption or hypotension or signs of significant dehydration. Discussed briefly with GI DrMarie Crowe here, he recommends adding antibiotics levofloxacin and metronidazole to the steroids, and I am also prescribing her some Percocet and Zofran to use for her symptoms. I recommend following up with her apartment maintenance technician which she intends to, she was given a dose of Solu-Medrol here prior to discharge, and I gave her printouts of her CT report and labs from today. Lab Data Attestation: I reviewed the patient's lab results. Labs: Laboratory Results - last 24 hr 10/02/22 12:15 WBC 4.5 RBC 4.05 L Hgb 13.1 Hct 38.3 MCV 94.6 MCH 32.3 H MCHC 34.2 RDW Std Deviation 46.9 H RDW Coeff of Gordon 13.6 Plt Count 147 L MPV 10.9 Immature Gran % (Auto) 0.200 Neut % (Auto) 52.1 Lymph % (Auto) 36.7 [place] % (Auto) 8.6 Eos % (Auto) 2.0 Baso % (Auto) 0.4 Absolute Neuts (auto) 2.4 Absolute Lymphs (auto) 1.66 Nucleated RBC % 0 Sodium 141 Potassium 3.6 Chloride 110 H Carbon Dioxide 26.0 Anion Gap 5 BUN 10 Creatinine 0.84 Estim Creat Clear Calc 76.67 Est GFR (MDRD) Af Amer 93 Est GFR (MDRD) Non-Af 77 BUN/Creatinine Ratio 11.9 Glucose 96 Calcium 8.7 Total Bilirubin 0.70 AST 42 H ALT 39 Alkaline Phosphatase 81 Total Protein 7.7 Albumin 3.7 Globulin 4.0 Albumin/Globulin Ratio 0.9 Serum , Qual NEGATIVE Radiography Diagnostic Testing: Clinical Impression(s) from Imaging Studies Abdomen/Pelvis CT 10/02/22 13:25 IMPRESSION: Thickening of the wall of the right hemicolon as well as the haustral pattern suggestive of a inflammatory change. Small lymph nodes are seen in the mesentery in the right lower quadrant. Multiple bilateral nonobstructive intrarenal calculi. Diffuse fatty infiltration of the liver. Electronically Signed: Greg Reeder MD at 14:11 EDT , Discharge Plan Triage Chief Complaint: Abd Pain ED Provider: Angelo Horton Dx/Rx/DC Orders Clinical Impression: Exacerbation of Crohn's disease of large intestine Instructions: ED Crohn's Disease Prescriptions: New oxycodone-acetaminophen [oxycodone-acetaminophen] 5-325 mg tablet 1 tab PO Q6H PRN PRN (Reason: Pain) 3 Days Qty: 12 0RF ondansetron [ondansetron] 4 mg tablet,disintegrating 8 mg PO Q8H PRN PRN (Reason: Nausea) Qty: 20 0RF prednisone 10 mg tablet 10 mg PO UD Qty: 34 0RF Rx Instructions: Take 4 tablets daily for 4 days, then 3 daily for 3 days, then 2 daily for 3 days, then 1 a day for 3 days metronidazole [metronidazole] 500 mg tablet 500 mg PO BID Qty: 20 0RF levofloxacin 500 mg tablet 500 mg PO DAILY Qty: 7 0RF No Action cyanocobalamin (vitamin B-12) 1,000 mcg/mL kit 1,000 mcg IM ONCE cyclobenzaprine 10 mg tablet 10 mg PO TID Hold Instructions: Order Completed amoxicillin-pot clavulanate 875-125 mg tablet 1 tab PO BID Qty: 20 0RF benzonatate 200 mg capsule 200 mg PO TID PRN (Reason: cough) Qty: 20 0RF Hold Instructions: Order Completed azathioprine 50 mg tablet 50 mg PO DAILY@0800 chlordiazepoxide-clidinium 1 EACH capsule 1 ea PO BID PRN (Reason: Pain) Hold Instructions: Order Completed ondansetron 4 MG tablet 4 mg PO Q8H PRN PRN (Reason: Nausea) colestipol 1 GM tablet 2 g PO BID acetaminophen 500 MG tablet 500 mg PO Q6H PRN PRN (Reason: Pain) infliximab-dyyb 100 MG/10 ML recon soln 38 ml IV QMONTH hyoscyamine sulfate 0.375 mg Capsule,Extended Release 12 Hr 0.375 mg PO BID PRN (Reason: cramping) fluconazole [Diflucan] 150 mg tablet 150 mg PO .COMPLEX Qty: 7 5RF Rx Instructions: 150 mg PO now and in 72 hours and then take weekly for 6 months Primary Care Provider: Lindsey Bain Referrals: Lindsey Bain MD [Primary Care Provider] - As soon as possible (and/or your GI doctor) Activity Restrictions/Additional Instructions: Prednisone you can start the prescription tomorrow since you received a dose in the IV in the ED. Disposition Disposition: Home, Self Care
[2022-10-02] MEDS: MethylPREDNISolone 125 MG/2 ML Vial IV (15:28)
[2022-10-02 15:32] VITALS: BP 138/89
== END 2022-10-02 15:34 | disposition home or self-care (01) ==
PROVIDERS: Emergency Provider Emergency Medicine; PCP Family Medicine; Visit Provider Emergency Medicine
DX: K50.118 Crohn's disease of large intestine with other complication (principal); Z90.49 Acquired absence of other specified parts of digestive tract; Z90.710 Acquired absence of both cervix and uterus
CPT/HCPCS: 74177; 80053; 84703; 85025; 99285; J7030; Q9967; A4216; J2405

== ENCOUNTER → 2022-10-30 | Outpatient (CLI) | payer OTHER, SELFPAY ==
--- NOTE | 2022-10-30 17:00 | RAD_ITS ---
INDICATION: PAIN EXAMINATION/TECHNIQUE: X-RAY - RIGHT HAND XR Fingers 3 VIEWS COMPARISON: None. FINDINGS: 3 views of the first digit of the right hand were obtained. No acute fracture is identified. No dislocation. No soft tissue abnormality identified. RAD/Finger(s) Min 2 Views IMPRESSION: No significant abnormality. Electronically Signed: Pranay Campuzano MD at 1:59 EDT ,
--- NOTE | 2022-10-30 17:00 | RAD_ITS ---
INDICATION: PAIN EXAMINATION/TECHNIQUE: X-RAY - RIGHT XR Wrist 2 Views 2 VIEWS COMPARISON: None. FINDINGS: Frontal and lateral views of the right wrist were obtained. No acute fracture is identified. No dislocation. RAD/Wrist 2 Views IMPRESSION: No significant abnormality. Electronically Signed: Pranay Campuzano MD at 2:01 EDT ,
== END | disposition home or self-care (01) ==
LOC: RAD 16:50
PROVIDERS: PCP Family Medicine; Referring Provider Nurse Practitioner Family; Visit Provider Nurse Practitioner Family
DX: M25.531 Pain in right wrist (principal); Z87.39 Personal history of other diseases of the musculoskeletal system and connective tissue; Z90.710 Acquired absence of both cervix and uterus
CPT/HCPCS: 73100; 73140

== ENCOUNTER → 2022-12-30 | Outpatient (CLI) | payer OTHER, SELFPAY ==
[2022-12-30 15:54] LABS: Vitamin B12 578 pg/mL (211-911)
[2022-12-30 15:56] LABS: Cholesterol 271 mg/dL (200); High Density Lipoprotein 48 mg/dL; Triglycerides 518 mg/dL
[2022-12-30 16:22] LABS: Thyroid Stim Hormone (TSH) 1.71 uIU/mL (0.358-3.74)
== END | disposition home or self-care (01) ==
LOC: BIMLAB 11:48
PROVIDERS: PCP Internal Medicine; Referring Provider Internal Medicine; Visit Provider Internal Medicine
DX: K50.90 Crohn's disease, unspecified, without complications (principal); Z13.6 Encounter for screening for cardiovascular disorders; R51.9 Headache, unspecified
CPT/HCPCS: 36415; 80061; 82306; 82607; 84443

== ENCOUNTER → 2023-02-17 | Outpatient (CLI) | payer OTHER, SELFPAY ==
--- NOTE | 2023-02-17 07:23 | US_ITS ---
INDICATION: CIRRHOSIS EXAMINATION: US Abdomen Limited (quadrant) TECHNIQUE: Mirza-scale and color Doppler imaging was performed of the right upper abdominal quadrant. COMPARISON: None. Findings: The liver is diffusely homogenous with overall increased echogenicity. There is possible mild contour nodularity which may represent early cirrhosis. No focal hepatic mass is identified. The main portal vein is normal in size and patent demonstrating hepatopetal flow. The gallbladder is surgically absent. Sonographic Bains''s tenderness is not appreciated. There is no evidence of intrahepatic biliary ductal dilatation. The CBD is nondilated measuring 5 mm at the level of the suzi hepatis. The visualized portions of the pancreas are unremarkable without evidence of focal or diffuse enlargement. Specifically, the tail is obscured by overlying bowel gas. Right kidney measures 11.6 cm in length. It is normal in echogenicity. There are multiple nonobstructing stones. There is no evidence of hydronephrosis. US/Abdomen Limited IMPRESSION: Hyperechoic and heterogenous liver with possible mild contour nodularity. Findings may represent early cirrhosis. No evidence of focal hepatic mass. Nonobstructive nephrolithiasis on the right. Electronically Signed: Adam Draper MD at 23:44 EST ,
== END | disposition home or self-care (01) ==
LOC: US 07:21
PROVIDERS: PCP Internal Medicine
DX: K74.60 Unspecified cirrhosis of liver (principal)
CPT/HCPCS: 76705

== ENCOUNTER → 2023-03-25 | Outpatient (CLI) | payer OTHER, SELFPAY ==
[2023-03-25 17:10] LABS: Absolute Lymphocyte Count 2.28 X10^3/uL (0.83-4.51); Absolute Neutrophil Count 2.6 X10^3/uL (2.0-7.7); Basophil# 0.02 X10^3/uL; Basophil% 0.4 % (0-1); Eosinophil# 0.09 X10^3/uL; Eosinophils% 1.6 % (0-5); Hematocrit 39.9 % (37-47); Hemoglobin 12.9 g/dL (12.0-15.0); Lymphocyte # 2.28 X10^3/ul (0.83-4.51); Lymphocyte % 40.5 % (19-41); Mean Corp Hgb Conc 32.3 g/dL (32-36); Mean Corpuscular Hgb 29.3 pg (27.0-32.0); Mean Corpuscular Volume 90.5 fL (81-99); Mean Platelet Vol. 10.6 fl (6.2-12.0); Monocyte# 0.63 X10^3/uL; Monocyte% 11.2 % (0-10); NRBC Flagged by Analyzer 0 % (0-5); Neutrophil % 46.1 % (47-70); Platelet Count 136 K/mm3 (150-450); RBC Distribution Width CV 12.9 % (11.6-14.6); RBC Distribution Width SD 42.4 fl (35.1-43.9); Red Blood Count 4.41 M/mm3 (4.2-5.4); White Blood Count 5.6 K/mm3 (4.4-11.0)
== END | disposition home or self-care (01) ==
LOC: LAB 16:46
PROVIDERS: PCP Internal Medicine; Referring Provider Internal Medicine; Visit Provider Internal Medicine
DX: D69.6 Thrombocytopenia, unspecified (principal)
CPT/HCPCS: 36415; 85025

== ENCOUNTER → 2023-04-04 | Outpatient (CLI) | payer OTHER, SELFPAY ==
--- OUTSIDE RECORDS SUMMARY | 2023-04-04 17:19 | XMS RPT_ITS | CCD ---
Author Name Unknown Address [address] [place] [address] Organization [facility] Care Team Providers Care Animal Rehabilitator Name Role Phone Carolyn Arzate MD Unavailable Taya BARTLETT, [place] Primary Care Provider Carolyn Arzate MD Unavailable Gerardo BARTLETT, [facility] Primary Care Provider [facility] Primary Care Unavailable MICHELLE MARR Attending Unavailable MICHELLE MARR Referring Unavailable CAROLYN ARZATE Referring Unavailable [facility] Primary Care Unavailable GIGI FLANNERY Attending Unavailable CAROLYN ARZATE Referring Unavailable [facility] Primary Care Unavailable KB CONKLIN Attending Unavailable SELF, SELF Referring Unavailable [facility] Care Unavailable CAROLYN ARZATE Referring Unavailable [facility] Primary Care Unavailable MICHELLE MARR Attending Unavailable KB CONKLIN Attending Unavailable DONNA CONKLINHUR Referring Unavailable [facility] Primary Care Unavailable CAROLYN ARZATE Referring Unavailable [facility] Primary Care Unavailable CAROLYN ARZATE Referring Unavailable [facility] Primary Care Unavailable CAROLYN ARZATE Referring Unavailable HECTOR VILLELA Attending Unavailable [facility] Primary Care Unavailable KB CONKLIN Attending Unavailable SELF, SELF Referring Unavailable [facility] Primary Care Unavailable [facility] Primary Care Unavailable SELF, SELF Referring Unavailable SHEREE WATERMAN Attending Unavailab le [facility] Primary Care Unavailable CAROLYN ARZATE Attending Unavailable CAROLYN ARZATE Referring Unavailable [facility] Primary Care Unavailable CAROLYN ARZATE Referring Unavailable SELF, SELF Referring Unavailable [facility] Primary Care Unavailable SHEREE WATERMAN Attending Unavailab kassandra SCHULERA, CHATGIRISHR Referring Unavailable GERARDO, BRETT Primary Care Unavailable MICHELLE MARR Attending Unavailable JUNIORKB Referring Unavailable GERARDO, BRETT Primary Care Unavailable MICHELLE MARR Attending Unavailable CAROLYN ARZATE [facility] Care Unavailable CAROLYN ARZATE Referring Unavailable MIEDEL, CRESBARD Primary Care Unavailable CAROLYN ARZATE [facility]ending [facility] Primary Care Unavailable MICHELLE MARR Referring Unavailable TORY HERNADEZ Attending Unavailable CAROLYN ARZATE Referring Unavailable MIED, CRESBARD Primary Care Unavailable SELF, SELF Referring Unavailable MIED, CRESBARD Primary Care Unavailable SHEREE WATERMAN Attending Unavailab CAROLYN Mac Referring Unavailable MIED, CRESBARD Primary Care Unavailable MICHELLE MARR Attending Unavailable CAROLYN ARZATE [facility] Primary Care Unavailable MIED, CRESBARD Primary Care Unavailable JESSICA CONKLINR Attending Unavailable JUNIOR, CHATHUR Referring Unavailable MIEDEL, CRESBARD Primary Care Unavailable JESSICA CONKLINR Attending Unavailable JUNIOR CHATHUR Referring Unavailable Allergies Allergy Classification Reported Allergen(s) Allergy Type Date of Onset Reaction(s) Facility (20 sources) Acetaminophen / oxyCODONE Drug Allergy 6 [facility] (20 sources) Amitriptyline Drug Allergy 6 [facility] (20 sources) gabapentin Drug Allergy 6 [facility] (20 sources) mesalamine Drug Allergy 6 [facility] (20 sources) topiramate Drug Allergy 6 [facility] (3 sources) mesalamine Drug Allergy 6 [facility] (3 sources) Topiramate Propensity to adverse reactions to drug 6 [facility] Medications Current Medications Medication Drug Class(es) Dates Sig (Normalized) Sig (Original) acetaminophen 500 mg oral tablet (20 sources) take 1 tablet by mouth every six hours as needed acetaminophen 500 MG tablet Take 1 tablet by mouth every 6 hours as needed for Pain. 0 Active azaTHIOprine 50 mg oral tablet (20 sources) Purine Antimetabolite Start: 01-28-2022 take 3 tablets by mouth once daily azaTHIOprine 50 MG tablet Indications: Crohn's disease of small intestine without complication Take 3 tablets by mouth daily. 270 tablet 3 01/28/2022 Active Completed/Discontinued Medications Medication Drug Class(es) Dates Sig (Normalized) Sig (Original) chlordiazePOXIDE hydrochloride 5 mg / clidinium bromide 2.5 mg oral capsule (10 sources) Anticholinergic, Benzodiazepine Start: 09-04-2020 End: 04-18-2022 chlordiazepoxide-c lidinium (Librax) 5-2.5 MG capsule Indications: Irritable bowel syndrome with diarrhea Take 1 capsule by mouth every 6 hours as needed. 60 capsule 3 09/04/2020 04/18/2022 Discontinued (Medication Reconciliation (suppress cancel msg)) 2 ml fentaNYL 0.05 mg/ml injection (4 sources) Opioid Agonist Start: 10-16-2022 End: 10-16-2022 fentaNYL (SUBLIMAZE) injection Problems Active Problems Problem Classification Problem Date Documented Da te Episodic/Chronic Nutritional deficiencies (20 sources) Vitamin D deficiency; Translations: [Vitamin D deficiency, unspecified] Onset: 07-30-2016 07-30-2016 Chronic Other gastrointestinal disorders (20 sources) Irritable bowel syndrome with diarrhea; Translations: [Irritable bowel syndrome with diarrhea] Onset: 02-07-2017 02-07-2017 Chronic Other liver diseases (2 sources) Disease of liver; Translations: [Liver disease, unspecified] Chronic Other liver diseases (1 source) Steatosis of liver; Translations: [Fatty (change of) liver, not elsewhere classified] Chronic Other liver diseases (4 sources) Cirrhosis of liver; Translations: [Unspecified cirrhosis of liver] Chronic Other liver diseases (2 sources) Unspecified cirrhosis of liver; Translations: [Unspecified cirrhosis of liver] Onset: 02-10-2023 Chronic Other liver diseases (2 sources) Liver disease, unspecified; Translations: [Liver disease, unspecified] Onset: 08-12-2022 Chronic Regional enteritis and ulcerative colitis (20 sources) Crohn's disease of small intestine; Translations: [Crohn's disease of small intestine without complications] Onset: 04-17-2015 Chronic Unclassified (2 sources) Medication Management; Translations: [Medication Management] Onset: 10-11-2022 Past or Other Problems Problem Classification Problem Date Documented Da te Episodic/Chronic Abdominal pain (1 source) Lower abdominal pain; Translations: [Lower abdominal pain, unspecified] Episodic Complications of surgical procedures or medical care (20 sources) Postoperative wound infection; Translations: [Infection following a procedure, other surgical site, initial encounter] Onset: 04-10-2016 04-10-2016 Episodic Nausea and vomiting (1 source) Nausea; Translations: [Nausea] Episodic Other gastrointestinal disorders (20 sources) Diarrhea; Translations: [Diarrhea, unspecified] Onset: 04-17-2015 Episodic Other screening for suspected conditions (not mental disorders or infectious disease) (4 sources) Liver function tests abnormal; Translations: [Other specified abnormal findings of blood chemistry] Onset: 04-05-2022 Episodic Residual codes; unclassified (4 sources) Transient alteration of awareness; Translations: [Transient alteration of awareness] Onset: 08-07-2022 Episodic Results Test Name Value Interpretation Reference Range Facil ity Vital Signs Date Time Vital Sign Value Performing Clinician Faci lity 02-10-2023 10:39-0500 Body height 170.2 cm Michelle PINEDA Work Phone: [facility] 02-10-2023 10:39-0500 Body mass index (BMI) [Ratio] 28.04 kg/m2 Michelle PINEDA Work Phone: [facility] 02-10-2023 10:39-0500 Body temperature 97.3 [degF] Michelle PINEDA Work Phone: [facility] 02-10-2023 10:39-0500 Body weight 81.19 kg Michelle PINEDA Work Phone: [facility] 02-10-2023 10:39-0500 Diastolic blood pressure 76 mm[Hg] Michelle PINEDA Work Phone: [facility] 02-10-2023 10:39-0500 Heart rate 79 /min Michelle Marr MANAGER PO[employer]-LITHOGRAPHED PLATE INSPECTOR Work Phone: [facility] 02-10-2023 10:39-0500 Respiratory rate 16 /min Michelle Marr MANAGER PO[employer]OGRAPHED PLATE INSPECTOR Work Phone: [facility] 02-10-2023 10:39-0500 SaO2% (BldA) [Mass fraction] 95 % Michelle Marr MANAGER PO[employer]-L[employer]OGRAPHED PLATE INSPECTOR Work Phone: [facility] 02-10-2023 10:39-0500 Systolic blood pressure 128 mm[Hg] Michelle Marr MANAGER PO[employer]OGRAPHED [employer]ATE INSPECTOR Work Phone: [facility] 10-28-2022 15:17-0400 Body temperature 97.5 [degF] [address] 10-28-2022 15:17-0400 Diastolic blood pressure 102 mm[Hg] [address] 10-28-2022 15:17-0400 Heart rate 92 /min [address] 10-28-2022 15:17-0400 Respiratory rate 16 /min [address] 10-28-2022 15:17-0400 Systolic blood pressure 149 mm[Hg] [address] 10-28-2022 13:59-0400 Body mass index (BMI) [Ratio] 28.21 kg/m2 [address] 10-28-2022 13:59-0400 Body weight 79.[address] 10-16-2022 15:24-0400 Diastolic blood pressure 73 mm[Hg] Caroyln Arzate MD Work Phone: [facility] 10-16-2022 15:24-0400 Heart rate 86 /min Carolyn Arzate MD Work Phone: [facility] 10-16-2022 15:24-0400 Respiratory rate 15 /min Carolyn Arzate MD Work Phone: [facility] 10-16-2022 15:24-0400 SaO2% (BldA) [Mass fraction] 95 % Carolyn Arzate MD Work Phone: [facility] 10-16-2022 15:24-0400 Systolic blood pressure 121 mm[Hg] Caroyln Arzate MD Work Phone: [facility] 09-20-2022 11:37-0400 Diastolic blood pressure 74 mm[Hg] [address] 09-20-2022 11:37-0400 Heart rate 85 /min [address] 09-20-2022 11:37-0400 Respiratory rate 16 /min [address] 09-20-2022 11:37-0400 Systolic blood pressure 127 mm[Hg] [address] 09-20-2022 10:13-0400 Body mass index (BMI) [Ratio] 28.78 kg/m2 [address] 09-20-2022 10:13-0400 Body temperature 97.39 [degF] [address] 09-20-2022 10:13-0400 Body weight 80.[address] 08-23-2022 11:13-0400 Diastolic blood pressure 67 mm[Hg] [address] 08-23-2022 11:13-0400 Heart rate 83 /min [address] 08-23-2022 11:13-0400 Respiratory rate 16 /min [address] 08-23-2022 11:13-0400 Systolic blood pressure 122 mm[Hg] [address] 08-23-2022 09:40-0400 Body mass index (BMI) [Ratio] 28.75 kg/m2 [address] 08-23-2022 09:40-0400 Body temperature 97.2 [degF] [address] 08-23-2022 09:40-0400 Body weight 80.[address] 07-26-2022 11:47-0400 Diastolic blood pressure 60 mm[Hg] [address] 07-26-2022 11:47-0400 Heart rate 85 /min [address] 07-26-2022 11:47-0400 Systolic blood pressure 136 mm[Hg] [address] 07-26-2022 11:13-0400 Respiratory rate 14 /min [address] 07-26-2022 09:54-0400 Body mass index (BMI) [Ratio] 29.54 kg/m2 [address] 07-26-2022 09:54-0400 Body temperature 96.21 [degF] [address] 07-26-2022 09:54-0400 Body weight 83.[address] 07-22-2022 12:52-0400 Body height 167.6 cm Kb Conklin MD Work Phone: [facility] 07-22-2022 12:52-0400 Body mass index (BMI) [Ratio] 29.34 kg/m2 Kb Conklin MD Work Phone: [facility] 07-22-2022 12:52-0400 Body weight 82.46 kg Kb Conklin MD Work Phone: [facility] 07-22-2022 12:52-0400 Diastolic blood pressure 80 mm[Hg] Kb Conklin MD Work Phone: [facility] 07-22-2022 12:52-0400 Heart rate 87 /min Kb Conklin MD Work Phone: [facility] 07-22-2022 12:52-0400 Respiratory rate 16 /min Kb Conklin MD Work Phone: [facility] 07-22-2022 12:52-0400 SaO2% (BldA) [Mass fraction] 95 % Kb Conklin MD Work Phone: [facility] 07-22-2022 12:52-0400 Systolic blood pressure 140 mm[Hg] Kb Conklin MD Work Phone: [facility] 06-28-2022 12:02-0400 Diastolic blood pressure 66 mm[Hg] [address] 06-28-2022 12:02-0400 Heart rate 68 /min [address] 06-28-2022 12:02-0400 Respiratory rate 16 /min [address] 06-28-2022 12:02-0400 Systolic blood pressure 160 mm[Hg] [address] 06-28-2022 10:14-0400 Body mass index (BMI) [Ratio] 29.44 kg/m2 [address] 06-28-2022 10:14-0400 Body temperature 96.49 [degF] [address] 06-28-2022 10:14-0400 Body weight 82.[address] 06-19-2022 14:16-0400 Diastolic blood pressure 71 mm[Hg] Carolyn Arzate MD Work Phone: [facility] 06-19-2022 14:16-0400 Heart rate 76 /min Carolyn Arzate MD Work Phone: [facility] 06-19-2022 14:16-0400 Respiratory rate 15 /min Carolyn Arzate MD Work Phone: [facility] 06-19-2022 14:16-0400 SaO2% (BldA) [Mass fraction] 98 % Carolyn Arzate MD Work Phone: [facility] 06-19-2022 14:16-0400 Systolic blood pressure 123 mm[Hg] Carolyn Arzate MD Work Phone: [facility] 06-19-2022 13:24-0400 Body height 167.6 cm Carolyn Arzate MD Work Phone: [facility] 06-14-2022 09:38-0400 Body height 167.6 cm Sheree Waterman MD Work Phone: [facility] 06-14-2022 09:38-0400 Body mass index (BMI) [Ratio] 29.7 kg/m2 Sheree Waterman MD Work Phone: [facility] 06-14-2022 09:38-0400 Body temperature 97.39 [degF] Sheree Waterman MD Work Phone: [facility] 06-14-2022 09:38-0400 Body weight 83.46 kg Sheree Waterman MD Work Phone: [facility] 06-14-2022 09:38-0400 Diastolic blood pressure 78 mm[Hg] Sheree Waterman MD Work Phone: [facility] 06-14-2022 09:38-0400 Heart rate 81 /min Sheree Waterman MD Work Phone: [facility] 06-14-2022 09:38-0400 Respiratory rate 18 /min Sheree Waterman MD Work Phone: [facility] 06-14-2022 09:38-0400 SaO2% (BldA) [Mass fraction] 97 % Sheree Waterman MD Work Phone: [facility] 06-14-2022 09:38-0400 Systolic blood pressure 126 mm[Hg] Sheree Waterman MD Work Phone: [facility] 05-31-2022 11:37-0500 Diastolic blood pressure 71 mm[Hg] [address] 05-31-2022 11:37-0500 Heart rate 87 /min [address] 05-31-2022 11:37-0500 Respiratory rate 16 /min [address] 05-31-2022 11:37-0500 Systolic blood pressure 129 mm[Hg] [address] 05-31-2022 10:11-0500 Body mass index (BMI) [Ratio] 29.7 kg/m2 [address] 05-31-2022 10:11-0500 Body temperature 97 [degF] [address] 05-31-2022 10:11-0500 Body weight 83.[address] 05-03-2022 11:31-0500 Diastolic blood pressure 83 mm[Hg] [address] 05-03-2022 11:31-0500 Heart rate 94 /min [address] 05-03-2022 11:31-0500 Respiratory rate 16 /min [address] [facility] 05-03-2022 11:31-0500 Systolic blood pressure 127 mm[Hg] [address] 05-03-2022 09:58-0500 Body mass index (BMI) [Ratio] 29.73 kg/m2 [address] 05-03-2022 09:58-0500 Body temperature 97 [degF] [address] 05-03-2022 09:58-0500 Body weight 83.[address] 04-18-2022 09:15-0500 Body height 167.6 cm Michelle Marr APRN-LITHOGRAPHED PLATE INSPECTOR Work Phone: [facility] 04-18-2022 09:15-0500 Body mass index (BMI) [Ratio] 29.38 kg/m2 Michelle Marr MANAGER POOL-LITHOGRAPHED PLATE INSPECTOR Work Phone: [facility] 04-18-2022 09:15-0500 Body weight 82.56 kg Michelle Marr MANAGER POOL-L[employer]OGRAPHED PLATE INSPECTOR Work Phone: [facility] 04-18-2022 09:15-0500 Diastolic blood pressure 80 mm[Hg] Michelle Marr MANAGER POOL-L[employer]OGRAPHED PLATE INSPECTOR Work Phone: [facility] 04-18-2022 09:15-0500 Heart rate 90 /min Michelle Marr MANAGER POOL-L[employer]OGRAPHED PLATE INSPECTOR Work Phone: [facility] 04-18-2022 09:15-0500 Respiratory rate 16 /min Michelle Marr MANAGER POOL-LITHOGRAPHED PLATE INSPECTOR Work Phone: [facility] 04-18-2022 09:15-0500 SaO2% (BldA) [Mass fraction] 96 % Michelle Marr MANAGER POOL-L[employer]OGRAPHED PLATE INSPECTOR Work Phone: [facility] 04-18-2022 09:15-0500 Systolic blood pressure 124 mm[Hg] Michelle Marr MANAGER POOL-L[employer]OGRAPHED PLATE INSPECTOR Work Phone: [facility] 04-05-2022 12:16-0500 Diastolic blood pressure 79 mm[Hg] [address] 04-05-2022 12:16-0500 Heart rate 90 /min [address] 04-05-2022 12:16-0500 Respiratory rate 16 /min [address] 04-05-2022 12:16-0500 Systolic blood pressure 130 mm[Hg] [address] 04-05-2022 10:45-0500 Body mass index (BMI) [Ratio] 29.18 kg/m2 [address] 04-05-2022 10:45-0500 Body temperature 96.49 [degF] [address] 04-05-2022 10:45-0500 Body weight 82.[address] 03-08-2022 11:43-0500 Diastolic blood pressure 74 mm[Hg] [address] 03-08-2022 11:43-0500 Heart rate 91 /min [address] 03-08-2022 11:43-0500 Respiratory rate 16 /min [address] 03-08-2022 11:43-0500 Systolic blood pressure 136 mm[Hg] [address] 03-08-2022 10:15-0500 Body mass index (BMI) [Ratio] 28.83 kg/m2 [address] 03-08-2022 10:15-0500 Body temperature 97 [degF] [address] 03-08-2022 10:15-0500 Body weight 81.[address] 02-08-2022 11:07-0500 Diastolic blood pressure 73 mm[Hg] [address] 02-08-2022 11:07-0500 Heart rate 93 /min [address] 02-08-2022 11:07-0500 Respiratory rate 16 /min [address] 02-08-2022 11:07-0500 Systolic blood pressure 129 mm[Hg] [address] 02-08-2022 09:27-0500 Body mass index (BMI) [Ratio] 28.78 kg/m2 [address] 02-08-2022 09:27-0500 Body temperature 97 [degF] [address] 02-08-2022 09:27-0500 Body weight 80.[address] 12-14-2021 11:38-0400 Diastolic blood pressure 75 mm[Hg] [address] 12-14-2021 11:38-0400 Heart rate 85 /min [address] 12-14-2021 11:38-0400 Respiratory rate 16 /min [address] 12-14-2021 11:38-0400 Systolic blood pressure 124 mm[Hg] [address] 12-14-2021 10:15-0400 Body mass index (BMI) [Ratio] 28.29 kg/m2 [address] 12-14-2021 10:15-0400 Body temperature 96.8 [degF] [address] 12-14-2021 10:15-0400 Body weight 79.[address] 11-16-2021 11:52-0400 Diastolic blood pressure 73 mm[Hg] [address] 11-16-2021 11:52-0400 Heart rate 89 /min [address] 11-16-2021 11:52-0400 Respiratory rate 16 /min [address] 11-16-2021 11:52-0400 Systolic blood pressure 113 mm[Hg] [address] 11-16-2021 10:18-0400 Body mass index (BMI) [Ratio] 27.57 kg/m2 [address] 11-16-2021 10:18-0400 Body temperature 97 [degF] [address] 11-16-2021 10:18-0400 Body weight 77.[address] 10-19-2021 11:49-0400 Diastolic blood pressure 100 mm[Hg] [address] 10-19-2021 11:49-0400 Heart rate 90 /min [address] 10-19-2021 11:49-0400 Respiratory rate 16 /min [address] 10-19-2021 11:49-0400 Systolic blood pressure 124 mm[Hg] [address] 10-19-2021 10:11-0400 Body mass index (BMI) [Ratio] 28.17 kg/m2 [address] 10-19-2021 10:11-0400 Body temperature 96.69 [degF] [address] 10-19-2021 10:11-0400 Body weight 79.[address] 09-21-2021 11:52-0400 Diastolic blood pressure 68 mm[Hg] [address] 09-21-2021 11:52-0400 Heart rate 81 /min [address] 09-21-2021 11:52-0400 Respiratory rate 16 /min [address] 09-21-2021 11:52-0400 Systolic blood pressure 113 mm[Hg] [address] 09-21-2021 10:17-0400 Body mass index (BMI) [Ratio] 27.78 kg/m2 [address] 09-21-2021 10:17-0400 Body temperature 97.3 [degF] [address] 09-21-2021 10:17-0400 Body weight 78.[address] 07-27-2021 12:10-0400 Diastolic blood pressure 85 mm[Hg] [address] 07-27-2021 12:10-0400 Heart rate 97 /min [address] 07-27-2021 12:10-0400 Respiratory rate 16 /min [address] 07-27-2021 12:10-0400 Systolic blood pressure 148 mm[Hg] [address] 07-27-2021 10:35-0400 Body mass index (BMI) [Ratio] 28.79 kg/m2 [address] 07-27-2021 10:35-0400 Body temperature 97 [degF] [address] 07-27-2021 10:35-0400 Body weight 80.[address] 10-27-2020 09:39-0400 Body height 168.9 cm Star Cook MD Work Phone: [facility] 10-27-2020 09:39-0400 Body mass index (BMI) [Ratio] 28.78 kg/m2 Star Cook MD Work Phone: [facility] 10-27-2020 09:39-0400 Body temperature 97.5 [degF] Star Cook MD Work Phone: [facility] 10-27-2020 09:39-0400 Body weight 82.1 kg Star Cook MD Work Phone: [facility] 10-27-2020 09:39-0400 Diastolic blood pressure 76 mm[Hg] Star Cook MD Work Phone: [facility] 10-27-2020 09:39-0400 Heart rate 80 /min Star Cook MD Work Phone: [facility] 10-27-2020 09:39-0400 SaO2% (BldA) [Mass fraction] 99 % Star Cook MD Work Phone: [facility] 10-27-2020 09:39-0400 Systolic blood pressure 123 mm[Hg] Star Cook MD Work Phone: [facility] Encounters Encounter Date Encounter Type Care Provider Facility Start: 02-10-2023 ambulatory [facility] Start: 02-10-2023 End: 02-10-2023 Office outpatient visit 25 minutes Michelle Marr APRN-LITHOGRAPHED PLATE INSPECTOR Work Phone: [facility] Procedures Date Procedure Procedure Detail Performing Clinician Start: 12-20-2022 Follow-up visit Follow-up EBER WATERMAN Start: 10-16-2022 Colonoscopy flx dx w /collj spec when pfrmd Sheree Waterman MD Work Phone: Start: 07-26-2022 Assay of ammonia Jessica Conklin MD Work Phone: Start: 06-28-2022 CBC AND ELECTRONIC DIFF Carolyn Arzate MD Work Phone: Start: 06-28-2022 Complete blood count with white cell differential, automated Carolyn Arzate MD Work Phone: Start: 06-28-2022 Hepatic function panel Carolyn Arzate MD Work Phone: Start: 06-19-2022 DIAGNOSTIC UPPER ENDOSCOPY Michelle Marr MANAGER [facility] Work Phone: Start: 05-24-2022 Liver elastography w /o imag w/i&r Michelle Marr MANAGER [facility] Work Phone: Start: 04-05-2022 CBC AND ELECTRONIC DIFF Carolyn Arzate MD Work Phone: Start: 04-05-2022 Complete blood count with white cell differential, automated Carolyn Arzate MD Work Phone: Start: 04-05-2022 Hepatic function panel Carolyn Arzate MD Work Phone: Start: 02-08-2022 Assay of ferritin Carolyn Arzate MD Work Phone: Start: 02-08-2022 Hepatic function panel Carolyn Arzate MD Work Phone: Start: 02-08-2022 Molecule isolate Carolyn Arzate MD Work Phone: Start: 10-19-2021 CBC AND ELECTRONIC DIFF Carolyn Arzate MD Work Phone: Start: 10-19-2021 Complete blood count with white cell differential, automated Carolyn Arzate MD Work Phone: Start: 10-19-2021 Hepatic function panel Carolyn Arzate MD Work Phone: Start: 07-27-2021 CBC AND ELECTRONIC DIFF Carolyn Arzate MD Work Phone: Start: 07-27-2021 Complete blood count with white cell differential, automated Carolyn Arzate MD Work Phone: Start: 07-27-2021 Hepatic function panel Carolyn Arzate MD Work Phone: Plan of Treatment Date Care Activity Detail Author Start: 10-17-2023 Screening for malignant neoplasm of colon COLORECTAL CANCER SCREENING DISCUSSION [facility] Start: 09-09-2023 End: 09-09-2023 Patient encounter procedure 09/09/2023 10:30 AM EDT Office Visit [facility] [address] [place] [address] Kb Conklin MD [address] [place] [address] [facility] Start: 02-10-2023 End: 02-11-2024 AFP TUMOR MARKER [facility] enter Immunizations Immunization Date Immunization Notes Care Provider Celio howell 03-08-2014 hepatitis A vaccine, adult dosage Michelle Marr MANAGER POOL-LITHOGRAPHED PLATE INSPECTOR Work Phone: [facility] 03-08-2014 hepatitis B vaccine, adult dosage Michelle Marr MANAGER POOL-LITHOGRAPHED PLATE INSPECTOR Work Phone: [facility] 03-08-2014 hepatitis B vaccine, pediatric or pediatric/adolescent dosage Michelle Marr MANAGER POOL-LITHOGRAPHED PLATE INSPECTOR Work Phone: [facility] 10-04-2013 hepatitis B vaccine, adult dosage Michelle Marr MANAGER POOL-LITHOGRAPHED PLATE INSPECTOR Work Phone: [facility] 08-30-2013 hepatitis A vaccine, adult dosage Michelle Marr MANAGER POOL-LITHOGRAPHED PLATE INSPECTOR Work Phone: [facility] 08-30-2013 hepatitis B vaccine, adult dosage Michelle Marr MANAGER POOL-LITHOGRAPHED PLATE INSPECTOR Work Phone: [facility] 08-30-2013 pneumococcal polysaccharide vaccine, 23 valent Michelle Marr MANAGER POOL-LITHOGRAPHED PLATE INSPECTOR Work Phone: [facility] Payers Date Payer Category Payer Private Health Insurance AEDIANA Salmeron ETSAMARA [id number] 2020-Present [address] [place] [address] [id number] 2020 Private Health Insurance JIM RODRIGUES [id number] 2020-Present [address] [place] [address] [id number] 2020 Private Health Insurance [id number] 1974 Unknown [id number] 2.16.840.1.015722.3.579.2. 594 1974 Unknown [id number] 2.16840.1.119872.3.579.2. 594 1974 Unknown [id number] 2.16840.1.959705.3.579.2. 594 1974 Unknown [id number] 2.16.840.1.606523.3.579.2. 594 1974 Unknown [id number] 2.16.840.1.023463.3.579.2. 594 1974 Unknown [id number] 2.16.840.1.126786.3.579.2. 594 1974 Unknown [id number] 2.16.840.1.384324.3.579.2. 594 1974 Unknown [id number] 2.16.840.1.070389.3.579.2. 594 1974 Unknown [id number] 2.16.840.1.321027.3.579.2. 594 1974 Unknown [id number] 2.16.840.1.751763.3.579.2. 594 1974 Unknown [id number] 2.16.840.1.738535.3.579.2. 594 1974 Unknown [id number] 2.16.840.1.771810.3.579.2. 594 1974 Unknown [id number] 2.16.840.1.981170.3.579.2. 594 1974 Unknown [id number] 2.16.840.1.594098.3.579.2. 594 1974 Unknown [id number] 2.16840.1.731343.3.579.2. 594 1974 Unknown [id number] 2.16840.1.190389.3.579.2. 594 1974 Unknown [id number] 2.16840.1.244250.3.579.2. 594 1974 Unknown [id number] 2.840.1.596814.3.579.2. 594 1974 Unknown [id number] 2.840.1.848577.3.579.2. 594 1974 Unknown [id number] 2.16840.1.792201.3.579.2. 594 1974 Unknown [id number] 2.16840.1.720752.3.579.2. 594 1974 Unknown [id number] 2.840.1.813769.3.579.2. 594 1974 Unknown [id number] 2.840.1.165220.3.579.2. 594 1974 Unknown [id number] 2.840.1.532665.3.579.2. 594 1974 Unknown [id number] 2.840.1.458177.3.579.2. 594 Social History Date Type Detail Facility [facility] Start: 10-27-2020 End: 02-08-2022 Alcohol intake Current non-drinker of alcohol (finding) [facility] Start: 10-27-2020 End: 12-20-2022 Alcohol intake [facility] Start: 1975 Sex Assigned At Not on file [facility] Start: 06-19-2021 End: 05-31-2022 Exposure to SARS-CoV-2 (event) Not sure [facility] Start: 04-17-2015 End: 04-18-2022 Tobacco smoking status NHIS Never smoked tobacco [facility] Start: 04-17-2015 End: 04-18-2022 Tobacco use and exposure Smokeless tobacco non-user [facility] Start: 03-26-2022 End: 04-18-2022 Exposure to SARS-CoV-2 (event) Unable to assess [facility] Start: 04-18-2022 End: 02-10-2023 Alcohol intake Lifetime non-drinker (finding) [facility] Start: 08-23-2022 End: 12-20-2022 Tobacco use panel [facility] Gender identity Identifies as fe male gender (finding) [facility] Goals Date Patient Goal Desired Activity /State Personal health goal Clinical Notes 10-27-2020 to 02-10-2023 MIRIAM Wall - 02/10/2023 11:00 AM Della Briones - 02/10/2023 11:00 AM Dominique Combs MD - 10/28/2022 2:00 PM EDTPjluis Arzate MD - 10/16/2022 2:00 PM EDT Note Date & Type Note Facility 02-10-2023 History of Presen t illness Narrative CLINICAL CARE TEAM: -Referring Provider for today's consult: Kb Conklin MD -Primary Care Provider: Brett Carrillo HISTORY OF PRESENT ILLNESS: Devika Bray is a 47 y.o. female who presents to the [facility] today for follow-up. I have reviewed her medical, surgical, and social history and have updated medication and allergy information in the computerized patient record. 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 Her history is also notable for Chron's (managed on Stelara, follows with [facility] IBD clinic), HSV, dysmenorrhea, osteopenia Per chart review, hepatic steatosis and hepatomegaly first noted on CT A/P in 2017. Most recent RUQ US 01/2022 revealing nodular contour of the liver, suggestive of cirrhosis. She has had an elevated AST since 10/2020. Peak AST 101 in 12/2021. Additionally, her ferritin has been elevated since 2017. Most recent ferritin 01/2022 556. HFE testing negative for C282Y and H63D genetic mutations. Additional autoimmune, genetic and viral serologic workup unremarkable. She underwent fibroscan in 05/2022 showing F4 fibrosis, >S3 steatosis. 05/2022 EGD without EVs. ANA with Dr. Conklin 07/22/2022 Since [facility], the patient reports she has been doing well. She has no new concerns today. Otherwise, she denies signs or symptoms of worsening liver function including jaundice, pruritus, abdominal swelling, peripheral edema, gastrointestinal bleeding or mental status changes suggestive of encephalopathy. She denies any recent ED visits or hospitalizations. Otherwise, she denies any recent fevers, chills, night sweats, unexpected weight loss, chest pain, shortness of breath, nausea, vomiting, abdominal pain, diarrhea, constipation, melena, hematochezia. PAST MEDICAL, SURGICAL, FAMILY, & SOCIAL HISTORY: Past Medical History: Diagnosis Date C. difficile diarrhea Congenital medullary sponge kidney Crohn's disease 08/10/2008 Dysmenorrhea Herpes zoster 06/2012 Hx of abnormal cervical Pap smear Liver disease 3.3.23 Cirrhosis Migraine Always has have Osteopenia Past Surgical History: Procedure Laterality Date COLONOSCOPY DIAGNOSTIC N/A 01/31/2021 Laterality: N/A; Surgeon: Carolyn Arzate MD; Location: [facility] COLONOSCOPY DIAGNOSTIC N/A 08/05/2018 Laterality: N/A; Surgeon: Carolyn Arzate MD; Location: [facility] COLONOSCOPY DIAGNOSTIC N/A 01/24/2017 Laterality: N/A; Surgeon: Carolyn Arzate MD; Location: [facility] [place] COLECTOMY PARTIAL W/ REMOVAL TERMINAL ILEUM OPEN N/A 03/22/2016 Laterality: N/A; Surgeon: Bernard Rossi MD; Location: [facility] MAIN OR COLONOSCOPY DIAGNOSTIC N/A 03/21/2016 Laterality: N/A; Surgeon: Bernard Rossi MD; Location: [facility] ENTEROSCOPY DOUBLE BALLOON LOWER GI N/A 08/07/2015 Laterality: N/A; Surgeon: Riley Mueller MD; Location: [facility] SECTION x2 COLPOSCOPY HYSTERECTOMY LAP CHOLECYSTECTOMY LITHOTRIPSY renal stones x2 with stents OVARIAN SURGERY Left left ovary removed TONSILLECTOMY TUBAL LIGATION Family History Problem Relation Age of Onset Lipid Disorder Mother Hypertension Mother Thyroid Disease Mother Bleeding or Clotting Problems Mother Lung Cancer Mother Cancer- Other Mother Colon Cancer Stroke Mother Cancer- Other Father 59 metastatic cancer (unknown source) Cancer- Other Brother 43 B cell Lymphoma Cancer- Other Brother Cancer- Other Brother Large B Cell Lymphoma Hypertension Paternal Aunt Hypertension Paternal Aunt Colorectal Cancer Neg Hx GI Disease Neg Hx Social History Socioeconomic History Marital status: Tobacco Use Smoking status: Never Smokeless tobacco: Never Vaping Use Vaping Use: Never used Substance and Sexual Activity Alcohol use: Never Drug use: Never Sexual activity: Yes Partners: Male control/protection: Hysterectomy Other Topics Concern Occupational Exposure No Hobby Hazards No MEDICATIONS: Current Outpatient Medications Medication Sig acetaminophen 500 MG tablet Take 1 tablet by mouth every 6 hours as needed for Pain. Cholecalciferol (VITAMIN D PO) Take 5,000 Units by mouth daily. colestipol 1 g tablet Take 3 tablets by mouth 2 times daily. Cyanocobalamin 1000 MCG/ML Solution Inject 1 mL intramuscularly every 30 days. Hyoscyamine 0.125 MG Tab SL tablet SL PLACE ONE TABLET UNDER TONGUE EVERY 4 HOURS NEEDED (CRAMPING). Mirtazapine 15 MG tablet Take 1 tablet by mouth at bedtime. NEEDLE, DISP, 25 G 25G X 1 Misc For B12 injections ondansetron 4 MG tablet Take 1 tablet by mouth every 8 hours as needed for Nausea / Vomiting. Syringe, Disposable, 5 ML Misc For B12 injections SYRINGE-NEEDLE, DISP, 3 ML 25G X 1 3 ML Misc Use as directed for B12 injections Ustekinumab (Stelara) 90 MG/ML Solution Prefilled Syringe injection Inject 1 mL under the skin every 56 days. ALLERGIES: Elavil [amitriptyline], Pentasa [mesalamine], and Topamax [topiramate] PHYSICAL EXAM: BP 128/76 (BP Location: Right arm, BP Position: Sitting) Pulse 79 Temp 97.3 F (36.3 C) (Temporal) Resp 16 Ht 1.702 m (5' 7 ) Wt 81.2 kg (179 lb) SpO2 95% BMI 28.04 kg/m Smoking Status Never Constitutional: Breathing easily, in no acute distress. Does not appear cachectic. HEENT: PER, neg scleral icterus, normal appearing oropharynx, no appreciable cervical LAD Cardiovascular: Normal rate and regular rhythm. Pulmonary/Chest: Breath sounds normal. Abdominal: Soft. NT/ND. No appreciable HS. Extrem: No appreciable edema. No gross focal motor deficits in distal extrem. Neurological: AOx4. No asterixis Skin: Does not appear jaundiced. -spiders -palmar erythema REVIEW OF SYSTEMS; otherwise full ROS was reviewed and was otherwise negative Review of Systems Constitutional: Negative. HENT: Negative. Cardiovascular: Negative. Musculoskeletal: Negative. Psychiatric: Negative. Lymph/Heme: Negative. LABORATORY EVALUATION: I have reviewed her pertinent laboratory data in the computerized patient record. Lab Results Component Value Date/Time PT 14.2 07/22/2022 01:53 PM PT 14.2 03/23/2016 12:25 AM INR 1.1 07/22/2022 01:53 PM INR 1.1 03/23/2016 12:25 AM PLATELET 149 (L) 07/22/2022 01:53 PM PLATELET 224 09/25/2017 11:42 AM WBC 4.61 07/22/2022 01:53 PM WBC 6.68 09/25/2017 11:42 AM HGB 13.5 07/22/2022 01:53 PM HGB 12.7 09/25/2017 11:42 AM POTASSIUM 3.8 07/22/2022 01:53 PM POTASSIUM 4.3 04/24/2018 02:08 PM BUN 9 07/22/2022 01:53 PM BUN 8 04/24/2018 02:08 PM CREATSERUM 0.81 07/22/2022 01:53 PM CREATSERUM 0.72 04/24/2018 02:08 PM CREATSERUM 1.14 09/12/2016 09:21 AM GFR 90 07/22/2022 01:53 PM GFR >=60 10/27/2020 10:40 AM GFR >60 04/24/2018 02:08 PM Lab Results Component Value Date ALT 29 07/22/2022 AST 62 (H) 07/22/2022 GGT 92 (H) 02/08/2022 ALKPHOS 73 07/22/2022 BILITOTAL 1.1 07/22/2022 BILIDIRECT 0.2 06/28/2022 MELD 3.0: 9 at 07/22/2022 1:53 PM MELD-Na: 8 at 07/22/2022 1:53 PM Calculated from: Serum Creatinine: 0.81 mg/dL (Using min of 1 mg/dL) at 07/22/2022 1:53 PM Serum Sodium: 141 mmol/L (Using max of 137 mmol/L) at 07/22/2022 1:53 PM Total Bilirubin: 1.1 mg/dL at 07/22/2022 1:53 PM Serum Albumin: 4.6 g/dL (Using max of 3.5 g/dL) at 07/22/2022 1:53 PM INR(ratio): 1.1 at 07/22/2022 1:53 PM Age at listing (hypothetical): 46 years Sex: Female at 07/22/2022 1:53 PM Imaging/Procedures 08/12/2022 MR ABD IMPRESSION: Hepatic steatosis with focal fatty sparing adjacent the falciform ligament in segment 4 which likely correlates with finding on prior ultrasound. No suspicious enhancing liver lesions. 08/07/2022 RUQ US IMPRESSION: 1. Cirrhosis with possible underlying steatosis. Hypoenhancing lesion in the right lobe near the falciform ligament measures up to 1.8 cm. Differential would include focal fatty sparing, underlying lesion, or possibly artifact. Findings could be further evaluated with MRI liver, as clinically indicated. 2. Right renal stones. No hydronephrosis. 05/24/2022 Fibroscan Findings: ---- Median shear wave speed of 4.63 meters/second. ---- This corresponds to a median Liver Stiffness Score of 64.4 kPA. ---- IQR 18*% ---- Median CAP was 369 dB/m Impression: F4 fibrosis/cirrhosis >S3 steatosis 10/16/2022 Colonoscopy Impression: - Perianal skin tags found on perianal exam. - The examined portion of the ileum was normal. - Patent end-to-side ileo-colonic anastomosis, characterized by healthy appearing mucosa. - The entire examined colon is normal. Biopsied. - Internal hemorrhoids. - The examination was otherwise normal on direct and retroflexion views. 06/19/2022 EGD Impression: - Normal esophagus. - Z-line regular, 39 cm from the incisors. - Multiple gastric polyps. Biopsied. - Normal duodenal bulb and second portion of the duodenum. ASSESSMENT AND PLAN: Devika Bray is a 47 y.o. 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 Her history is also notable for Chron's (managed Stelara, follows with [facility] IBD clinic), HSV, dysmenorrhea, osteopenia Plan Likely MASLD Cirrhosis: MELD 3.0 9 from previous labs. Will recheck MELD labs today. Ascites: Not present clinically. I would recommend adherence to a strict 2 gram, low sodium diet. EV: 05/2022 EGD without EVs HE: A&Ox4 HCC: RUQ US and AFP ordered. I would recommend ongoing surveillance for HCC with abdominal imaging in conjunction with serum AFP every 6 months. In addition, I would recommend vaccination against hepatitis A and B. I recommend lifelong abstinence from alcohol and tobacco. I would strictly avoid using NSAIDs for pain control given their risk for mucosal ulceration, bleeding and nephrotoxicity. For pain, I recommend acetaminophen, up to but not exceeding 2,000 mg daily. I would recommend against using narcotics or benzodiazepines given their risk for precipitating or exacerbating hepatic encephalopathyI would strictly avoid raw shellfish given the risk of Vibrio Vulnificus in cirrhotics. I discussed my impression and plan with the patient. The patient had the opportunity to ask all questions regarding their condition and answered those questions to the best of my ability Discussion with patient and /or family with regards to: Diagnostic results and or recommended studies Risks and benefits of management or treatment options Important of compliance with chosen treatment Risk factor reduction Patient and family education FOLLOW-UP -For follow up, she will return to Dr. Conklin's clinic in 6 months Thank you for allowing me to participate in the care of Devika Bray. MIRIAM Wall Hepatology Nurse Practitioner Division of Gastroenterology, Hepatology, & Nutrition [facility] Patient has verified full name and . documented in this encounter [facility] 10-28-2022 History of Presen t illness Narrative Infusion Clinic Attending - 10/28/2022 documented in this encounter [facility] 10-16-2022 History and physical note ENDOSCOPIC PREPROCEDURE HISTORY AND PHYSICAL HISTORY OF PRESENT ILLNESS: Devika Bray is a 47 y.o. female seen in the pre-procedure area at [facility]. The indication for endoscopic evaluation includes: Crohn's disease of small and large intestines with complication PAST MEDICAL HISTORY: Past Medical History: Diagnosis Date C. difficile diarrhea Congenital medullary sponge kidney Crohn's disease 08/10/2008 Dysmenorrhea Herpes zoster 06/2012 Hx of abnormal cervical Pap smear Liver disease 3.3.23 Cirrhosis Migraine Always has have Osteopenia SURGICAL HISTORY: Past Surgical History: Procedure Laterality Date COLONOSCOPY DIAGNOSTIC N/A 01/31/2021 Laterality: N/A; Surgeon: Carolyn Arzate MD; [facility] COLONOSCOPY DIAGNOSTIC N/A 08/05/2018 Laterality: N/A; Surgeon: Carolyn Arzate MD; Location: [facility] COLONOSCOPY DIAGNOSTIC N/A 01/24/2017 Laterality: N/A; Surgeon: Carolyn Arzate MD; Location: [facility] [place] COLECTOMY PARTIAL W/ REMOVAL TERMINAL ILEUM OPEN N/A 03/22/2016 Laterality: N/A; Surgeon: Bernard Rossi MD; Location: [facility] MAIN OR COLONOSCOPY DIAGNOSTIC N/A 03/21/2016 Laterality: N/A; Surgeon: Bernard Rossi MD; Location: [facility] ENDOSCOPY ENTEROSCOPY DOUBLE BALLOON LOWER GI N/A 08/07/2015 Laterality: N/A; Surgeon: Riley Mueller MD; Location: [facility] ENDOSCOPY SECTION x2 COLPOSCOPY HYSTERECTOMY LAP CHOLECYSTECTOMY LITHOTRIPSY renal stones x2 with stents OVARIAN SURGERY Left left ovary removed TONSILLECTOMY TUBAL LIGATION MEDICATIONS: Current Outpatient Medications Medication Instructions acetaminophen (TYLENOL) 500 mg, Oral, EVERY 6 HOURS NEEDED azaTHIOprine (IMURAN) 150 mg, Oral, DAILY Cholecalciferol (VITAMIN D PO) 5,000 Units, Oral, DAILY colestipol (COLESTID) 3 g, Oral, 2 TIMES DAILY Cyanocobalamin (VITAMIN B12) 1,000 mcg, Intramuscular, EVERY 30 DAYS inFLIXimab 100 MG Recon Soln Use infliximab 5 mg/kg every 4 weeks per Crohns protocol inFLIXimab-dyyb (INFLECTRA IV) 410 mg, Intravenous, EVERY 28 DAYS NEEDLE, DISP, 25 G 25G X 1 Misc For B12 injections Ondansetron (ZOFRAN) 4 mg, Oral, EVERY 8 HOURS NEEDED predniSONE 5 MG tablet Take 6 tablets by mouth daily for 7 days, THEN 5 tablets daily for 7 days, THEN 4 tablets daily for 7 days, THEN 3 tablets daily for 7 days, THEN 2 tablets daily for 7 days. Syringe, Disposable, 5 ML Misc For B12 injections SYRINGE-NEEDLE, DISP, 3 ML 25G X 1 3 ML Misc Use as directed for B12 injections Current Outpatient Medications: acetaminophen 500 MG tablet, Take 1 tablet by mouth every 6 hours as needed for Pain., Disp: , Rfl: azaTHIOprine 50 MG tablet, Take 3 tablets by mouth daily., Disp: 270 tablet, Rfl: 3 Cholecalciferol (VITAMIN D PO), Take 5,000 Units by mouth daily., Disp: , Rfl: colestipol 1 g tablet, Take 3 tablets by mouth 2 times daily., Disp: 540 tablet, Rfl: 3 Cyanocobalamin 1000 MCG/ML Solution, Inject 1 mL intramuscularly every 30 days., Disp: 3 mL, Rfl: 3 inFLIXimab 100 MG Recon Soln, Use infliximab 5 mg/kg every 4 weeks per Crohns protocol, Disp: 1 Each, Rfl: 0 inFLIXimab-dyyb (INFLECTRA IV), 410 mg by Intravenous route every 28 days., Disp: , Rfl: ondansetron 4 MG tablet, Take 1 tablet by mouth every 8 hours as needed for Nausea / Vomiting., Disp: 60 tablet, Rfl: 6 predniSONE 5 MG tablet, Take 6 tablets by mouth daily for 7 days, THEN 5 tablets daily for 7 days, THEN 4 tablets daily for 7 days, THEN 3 tablets daily for 7 days, THEN 2 tablets daily for 7 days., Disp: 140 tablet, Rfl: 0 NEEDLE, DISP, 25 G 25G X 1 Misc, For B12 injections, Disp: 10 Each, Rfl: 3 Syringe, Disposable, 5 ML Misc, For B12 injections, Disp: 25 Each, Rfl: 0 SYRINGE-NEEDLE, DISP, 3 ML 25G X 1 3 ML Misc, Use as directed for B12 injections, Disp: 50 Each, Rfl: 1 Current Facility-Administered Medications: Glucagon injection 1 mg, 1 mg, Intravenous, As directed PRN, Carolyn Arzate MD Lactated ringers IV solution, , Intravenous, Continuous, Carolyn Arzate MD lidocaine 1% buffered in sodium bicarbonate 1-8.4 % injection SOSY 1 mL, 1 mL, Intradermal, PRN, Carolyn Arzate MD simethicone in sterile water 40 mg/1000 mL irrigation 1 Application, 1 Application, Irrigation, As directed PRN, Carolyn Arzate MD simethicone undiluted 40 mg/0.6 mL irrigation 1 Application, 1 Application, Irrigation, As directed PRN, Carolyn Arzate MD Sodium chloride 0.9% IV solution, , Intravenous, Continuous, Carolyn Arzate MD ALLERGIES: Allergies Allergen Reactions Elavil [Amitriptyline] Neurontin [Gabapentin] Pentasa [Mesalamine] Percocet [Oxycodone-Acetaminophen] Pt states not allergic to percocet Topamax [Topiramate] FOCUSED REVIEW OF SYSTEMS: Negative for nausea, vomiting, abdominal pain and diarrhea VITAL SIGNS: Vitals: 10/16/22 1319 BP: 150/83 Pulse: 84 Resp: 16 SpO2: 97% PREPROCEDURE PHYSICAL EXAM: AIRWAY: normal, Mallampati: Class II (complete visualization of the uvula) HEART: Regular and No murmur PULMONARY: Lungs clear to auscultation bilaterally ABDOMEN: Soft, nontender, nondistended ASSESSMENT: Devika Bray is a 47 y.o. female is ready for the planned procedure. ASA Class: ASA 2 - Patient with mild systemic disease with no functional limitations PLAN: Will plan to proceed with DIAGNOSTIC COLONOSCOPY using Moderate Sedation. Carolyn Arzate MD [facility] 10-16-2022 History and physical note ENDOSCOPIC PREPROCEDURE HISTORY AND PHYSICAL HISTORY OF PRESENT ILLNESS: Devika Bray is a 47 y.o. female seen in the pre-procedure area at [facility]. The indication for endoscopic evaluation includes: Crohn's disease of small and large intestines with complication PAST MEDICAL HISTORY: Past Medical History: Diagnosis Date C. difficile diarrhea Congenital medullary sponge kidney Crohn's disease 08/10/2008 Dysmenorrhea Herpes zoster 06/2012 Hx of abnormal cervical Pap smear Liver disease 3.3.23 Cirrhosis Migraine Always has have Osteopenia SURGICAL HISTORY: Past Surgical History: Procedure Laterality Date COLONOSCOPY DIAGNOSTIC N/A 01/31/2021 Laterality: N/A; Surgeon: Carolyn Arzate MD; Location: [facility] COLONOSCOPY DIAGNOSTIC N/A 08/05/2018 Laterality: N/A; Surgeon: Carolyn Arzate MD; Location: [facility] COLONOSCOPY DIAGNOSTIC N/A 01/24/2017 Laterality: N/A; Surgeon: Carolyn Arzate MD; Location: [facility] [place] COLECTOMY PARTIAL W/ REMOVAL TERMINAL ILEUM OPEN N/A 03/22/2016 Laterality: N/A; Surgeon: Bernard Rossi MD; Location: [facility] MAIN OR COLONOSCOPY DIAGNOSTIC N/A 03/21/2016 Laterality: N/A; Surgeon: Bernard Rossi MD; Location: [facility] ENTEROSCOPY DOUBLE BALLOON LOWER GI N/A 08/07/2015 Laterality: N/A; Surgeon: Riley Mueller MD; Location: [facility] SECTION x2 COLPOSCOPY HYSTERECTOMY LAP CHOLECYSTECTOMY LITHOTRIPSY renal stones x2 with stents OVARIAN SURGERY Left left ovary removed TONSILLECTOMY TUBAL LIGATION MEDICATIONS: Current Outpatient Medications Medication Instructions acetaminophen (TYLENOL) 500 mg, Oral, EVERY 6 HOURS NEEDED azaTHIOprine (IMURAN) 150 mg, Oral, DAILY Cholecalciferol (VITAMIN D PO) 5,000 Units, Oral, DAILY colestipol (COLESTID) 3 g, Oral, 2 TIMES DAILY Cyanocobalamin (VITAMIN B12) 1,000 mcg, Intramuscular, EVERY 30 DAYS inFLIXimab 100 MG Recon Soln Use infliximab 5 mg/kg every 4 weeks per Crohns protocol inFLIXimab-dyyb (INFLECTRA IV) 410 mg, Intravenous, EVERY 28 DAYS NEEDLE, DISP, 25 G 25G X 1 Misc For B12 injections Ondansetron (ZOFRAN) 4 mg, Oral, EVERY 8 HOURS NEEDED predniSONE 5 MG tablet Take 6 tablets by mouth daily for 7 days, THEN 5 tablets daily for 7 days, THEN 4 tablets daily for 7 days, THEN 3 tablets daily for 7 days, THEN 2 tablets daily for 7 days. Syringe, Disposable, 5 ML Misc For B12 injections SYRINGE-NEEDLE, DISP, 3 ML 25G X 1 3 ML Misc Use as directed for B12 injections Current Outpatient Medications: acetaminophen 500 MG tablet, Take 1 tablet by mouth every 6 hours as needed for Pain., Disp: , Rfl: azaTHIOprine 50 MG tablet, Take 3 tablets by mouth daily., Disp: 270 tablet, Rfl: 3 Cholecalciferol (VITAMIN D PO), Take 5,000 Units by mouth daily., Disp: , Rfl: colestipol 1 g tablet, Take 3 tablets by mouth 2 times daily., Disp: 540 tablet, Rfl: 3 Cyanocobalamin 1000 MCG/ML Solution, Inject 1 mL intramuscularly every 30 days., Disp: 3 mL, Rfl: 3 inFLIXimab 100 MG Recon Soln, Use infliximab 5 mg/kg every 4 weeks per Crohns protocol, Disp: 1 Each, Rfl: 0 inFLIXimab-dyyb (INFLECTRA IV), 410 mg by Intravenous route every 28 days., Disp: , Rfl: ondansetron 4 MG tablet, Take 1 tablet by mouth every 8 hours as needed for Nausea / Vomiting., Disp: 60 tablet, Rfl: 6 predniSONE 5 MG tablet, Take 6 tablets by mouth daily for 7 days, THEN 5 tablets daily for 7 days, THEN 4 tablets daily for 7 days, THEN 3 tablets daily for 7 days, THEN 2 tablets daily for 7 days., Disp: 140 tablet, Rfl: 0 NEEDLE, DISP, 25 G 25G X 1 Misc, For B12 injections, Disp: 10 Each, Rfl: 3 Syringe, Disposable, 5 ML Misc, For B12 injections, Disp: 25 Each, Rfl: 0 SYRINGE-NEEDLE, DISP, 3 ML 25G X 1 3 ML Misc, Use as directed for B12 injections, Disp: 50 Each, Rfl: 1 Current Facility-Administered Medications: Glucagon injection 1 mg, 1 mg, Intravenous, As directed PRN, Carolyn Arzate MD Lactated ringers IV solution, , Intravenous, Continuous, Carolyn Arzate MD lidocaine 1% buffered in sodium bicarbonate 1-8.4 % injection SOSY 1 mL, 1 mL, Intradermal, PRN, Carolyn Arzate MD simethicone in sterile water 40 mg/1000 mL irrigation 1 Application, 1 Application, Irrigation, As directed PRN, Carolyn Arzate MD simethicone undiluted 40 mg/0.6 mL irrigation 1 Application, 1 Application, Irrigation, As directed PRN, Carolyn Arzate MD Sodium chloride 0.9% IV solution, , Intravenous, Continuous, Carolyn Arzate MD ALLERGIES: Allergies Allergen Reactions Elavil [Amitriptyline] Neurontin [Gabapentin] Pentasa [Mesalamine] Percocet [Oxycodone-Acetaminophen] Pt states not allergic to percocet Topamax [Topiramate] FOCUSED REVIEW OF SYSTEMS: Negative for nausea, vomiting, abdominal pain and diarrhea VITAL SIGNS: Vitals: 10/16/22 1319 BP: 150/83 Pulse: 84 Resp: 16 SpO2: 97% PREPROCEDURE PHYSICAL EXAM: AIRWAY: normal, Mallampati: Class II (complete visualization of the uvula) HEART: Regular and No murmur PULMONARY: Lungs clear to auscultation bilaterally ABDOMEN: Soft, nontender, nondistended ASSESSMENT: Devika Bray is a 47 y.o. female is ready for the planned procedure. ASA Class: ASA 2 - Patient with mild systemic disease with no functional limitations PLAN: Will plan to proceed with DIAGNOSTIC COLONOSCOPY using Moderate Sedation. Carolyn Arzate MD documented in this encounter [facility] 09-20-2022 History of Presen t illness Narrative Infusion attending 09/20/2022 Hector Villela MD Department of Internal Medicine Division of Immunology/Rheumatology documented in this encounter [facility] 08-23-2022 History of Presen t illness Narrative Infusion Center Attending Note: I was present as the infusion center attending at [facility] on 08/23/2022. documented in this encounter [facility] 07-26-2022 History of Presen t illness Narrative Infusion Center Attending Note: I was present as the infusion center attending at [facility] [place] on 07/26/2022. documented in this encounter [facility] 07-22-2022 History of Presen t illness Narrative Images from the original note were not included. Division of Gastroenterology, Hepatology and Nutrition HEP OP NOTE: HEPATOLOGY OUTPATIENT NOTE PRIMARY CARE PHYSICIAN: Lindsey Bain HEPATOLOGY/GI DIAGNOSIS: 1. Compensated cirrhosis likely secondary to unclear etiology, ? NAFLD given past h/o hepatic steatosis ( VCTE 05/2022- kPA 64.4, CAP 369) OTHER MEDICAL DIAGNOSIS: 1. 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 H/o CDI (c diff) 3. Adhesive bowel disease 4. IBS-D REASON FOR VISIT/CONSULT: cirrhosis HISTORY OF PRESENT ILLNESS: Devika Bray is a 46 y.o. C female with a recent diagnosis of cirrhosis from unclear etiology, long standing hepatic steatosis on imaging, chronic ileocolonic CD who comes to hepatology clinic for a follow up.ANA with VIDA marr 03/2022 I have reviewed the medical, surgical, and social history and have updated medication and allergy information in the computerized patient record. Has been at 160 lbs more or less for he most part of her life.This is the heaviest she has been. She does not recollect ever being told that she has liver disease and was surprised when I told her that she has fatty liver going back to 2017. She never drank alcohol in large quantities and currently does not drink She is now c/o worsening brain fog and memory issues . States that it has been ongoing for about 5 years but has never had it worked up. Sleep has been slightly disturbed on and off but she denies snoring/or at least she is not aware. Is worried that it could be liver related Has anywhere from 3-4 Bms at baseline.Tolerating infliximab/imuran well Today in clinic the patient denies fevers, chills, lightheadedness, abdominal pain, diarrhea, constipation, jaundice, pruritus, GI bleeding, nausea, vomiting, weight loss, ascites or confusion REVIEW OF SYSTEMS: Constitutional: no fevers, no chills, no weakness. HEENT: no blurring of vision, no diplopia. Respiratory: no sob, no wheezing, no cough. Cardiovascular: no chest pain, no PND/orthopnea, no edema Gastrointestinal: no diarrhea, no abdominal pain, no nausea, no vomiting. Genitourinary: no dysuria Musculoskeletal: no joint pain, ROM not limited. Neurological: no headache, no focal deficits. Psychiatry: no anxiety, no depression. All other systems were reviewed and were negative. Past medical History: Past Medical History: Diagnosis Date C. difficile diarrhea Congenital medullary sponge kidney Crohn's disease 08/10/2008 Dysmenorrhea Herpes zoster 06/2012 Hx of abnormal cervical Pap smear Migraine Always has have Osteopenia Past surgical History: Past Surgical History: Procedure Laterality Date COLONOSCOPY DIAGNOSTIC N/A 01/31/2021 Laterality: N/A; Surgeon: Carolyn Arzate MD; Location: [facility] COLONOSCOPY DIAGNOSTIC N/A 08/05/2018 Laterality: N/A; Surgeon: Craolyn Arzate MD; Location: [facility] COLONOSCOPY DIAGNOSTIC N/A 01/24/2017 Laterality: N/A; Surgeon: Carolyn Arzate MD; Location: [facility] [place] COLECTOMY PARTIAL W/ REMOVAL TERMINAL ILEUM OPEN N/A 03/22/2016 Laterality: N/A; Surgeon: Bernard Rossi MD; Location: [facility] OR COLONOSCOPY DIAGNOSTIC N/A 03/21/2016 Laterality: N/A; Surgeon: Bernard Rossi MD; Location: [facility] ENTEROSCOPY DOUBLE BALLOON LOWER GI N/A 08/07/2015 Laterality: N/A; Surgeon: Riley Mueller MD; Location: [facility] SECTION x2 COLPOSCOPY HYSTERECTOMY LAP CHOLECYSTECTOMY LITHOTRIPSY renal stones x2 with stents OVARIAN SURGERY Left left ovary removed TONSILLECTOMY TUBAL LIGATION ALLERGIES: Allergies Allergen Reactions Elavil [Amitriptyline] Neurontin [Gabapentin] Pentasa [Mesalamine] Percocet [Oxycodone-Acetaminophen] Pt states not allergic to percocet Topamax [Topiramate] HOME MEDICATIONS: Current Outpatient Medications Medication Instructions acetaminophen (TYLENOL) 500 mg, Oral, EVERY 6 HOURS NEEDED azaTHIOprine (IMURAN) 150 mg, Oral, DAILY Cholecalciferol (VITAMIN D PO) 5,000 Units, Oral, DAILY colestipol (COLESTID) 3 g, Oral, 2 TIMES DAILY Cyanocobalamin (VITAMIN B12) 1,000 mcg, Intramuscular, EVERY 30 DAYS Cyclobenzaprine (FLEXERIL) 10 mg, Oral, NEEDED, 1/2 to 1 tab as needed Doxycycline Monohydrate 50 mg, Oral, DAILY inFLIXimab 100 MG Recon Soln Use infliximab 5 mg/kg every 4 weeks per Crohns protocol inFLIXimab-dyyb (INFLECTRA IV) 410 mg, Intravenous, EVERY 28 DAYS NEEDLE, DISP, 25 G 25G X 1 Misc For B12 injections Ondansetron (ZOFRAN) 4 mg, Oral, EVERY 8 HOURS NEEDED Syringe, Disposable, 5 ML Misc For B12 injections SYRINGE-NEEDLE, DISP, 3 ML 25G X 1 3 ML Misc Use as directed for B12 injections SOCIAL HISTORY: Social Situation: lives at home with and children-4. 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 [employer] Tobacco: no smoked Alcohol: none Illicit's: none FAMILY HISTORY: Family History Problem Relation Age of Onset Lipid Disorder Mother Hypertension Mother Thyroid Disease Mother Bleeding or Clotting Problems Mother Lung Cancer Mother Hypertension Paternal Aunt Cancer- Other Father metastatic cancer (unknown source) Cancer- Other Brother B cell Lymphoma Cancer- Other Brother Cancer- Other Brother Hypertension Paternal Aunt Colorectal Cancer Neg Hx GI Disease Neg Hx No history of Liver, GI malignancy in first degree family member, no history of IBD Physical Examination: Measurements: BP 140/80 (BP Location: Left arm, BP Position: Sitting) Pulse 87 Resp 16 Ht 1.676 m (5' 6 ) Wt 82.5 kg (181 lb 12.8 oz) SpO2 95% BMI 29.34 kg/m Smoking Status Never General: The patient is in no acute distress. Eyes: Sclera anicteric. ENT: No oral lesions. Skin: No spider angiomata, no jaundice, no palmar erythema, no Mike s nails no xanthelasma. Respiratory: Lungs clear to auscultation. Cardiovascular: Regular rate, no murmurs, no edema b/l. Abdomen: Soft, non-tender, liver , spleen not palpable, no ascites. Extremities: No muscle wasting, no gross arthritic changes. Neurologic: Alert and oriented, cranial nerves grossly intact, no asterixis. LABS Lab Results Component Value Date WBC 3.99 06/28/2022 HGB 13.0 06/28/2022 HCT 38.1 06/28/2022 MCV 94.1 06/28/2022 Lab Results Component Value Date GLUCOSE 102 (H) 05/04/2021 CALCIUM 9.1 05/04/2021 CO2 27 04/18/2022 BUN 9 04/18/2022 Lab Results Component Value Date INR 1.1 04/18/2022 INR 1.1 03/23/2016 Lab Results Component Value Date ALT 25 06/28/2022 AST 39 06/28/2022 GGT 92 (H) 02/08/2022 ALKPHOS 76 06/28/2022 IMAGING: VCTE 05/2022: image quality appears to be appropriate Findings: ---- Median shear wave speed of 4.63 meters/second. ---- This corresponds to a median Liver Stiffness Score of 64.4 kPA. ---- IQR 18*% ---- Median CAP was 369 dB/m Impression: F4 fibrosis/cirrhosis >S3 steatosis Liver US 01/2022: IMPRESSION: Increased hepatic echogenicity with nodular contour suggestive of cirrhosis. No focal hepatic lesion. Numerous right renal nonobstructive calculi seen on prior CT. No right-sided hydronephrosis. I personally viewed and interpreted these imaging ENDOSCOPY REPORTS/PATHOLOGY REPORTS: EGD 05/2022: Findings: The examined esophagus was normal. The Z-line was regular and was found 39 cm from the incisors. The cardia and gastric fundus were normal on retroflexion. Multiple small flat polyps were found in the gastric fundus and in the gastric body. Biopsies were taken with a cold forceps for histology. The exam of the stomach was otherwise normal. The duodenal bulb and second portion of the duodenum were normal. Impression: - Normal esophagus. - Z-line regular, 39 cm from the incisors. - Multiple gastric polyps. Biopsied. - Normal duodenal bulb and second portion of the duodenum. ASSESSMENT/PLAN: Devika Bray is a 46 y.o. C female with a recent diagnosis of cirrhosis from unclear etiology, chronic ileocolonic CD who comes to hepatology clinic for a follow up.ANA with VIDA marr 03/2022 1. Compensated cirrhosis: - Etiology: Unclear etiology but possibly from NAFLD. Alternatively NRH from azathioprine is possible give the really high kPA scores. CLD labs unremarkable otherwise - Diagnosis Basis:VCTE, discussed liver bx but she would rather not - MELD Na: 7- 03/2022. Repeat labs today - EV screen: Done and no EV. Repeat in 3 years - HCC: Uptodate with liver imaging but due july [address] order - Ascites:none - OHE:none. ? MHE. - We discussed the natural history of compensated cirrhosis and need for transplantation in the future if needed. I have provided general cirrhosis recommendations as below 2. 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 Overweight: -I reinforced the importance of weight loss and counseled the patient on beneficial effects of weight loss on not only liver related complications but also non-liver related metabolic complications. - I have provided extensive dietary counseling today including decreasing intake of: Carbonated and sweetened drinks Refined sugar and simple carbohydrates Artificial and Processed foods. - We will follow weight loss progress at the next visit. 4. CD: - Seems to be stable on Education: - Avoid all alcohol - Discussed low-salt diet and to maintain salt intake of less than 2 g a day - Discussed avoiding raw seafood including shellfish - Discussed limiting use of Tylenol till less than 2 g a day and to avoid use of all NSAIDs - Discussed that patient needs to maintain a high-protein( 1.2- 1.5 g/kg/day), - Discussed that patient needs to maintain physical activity at least 3 times a week 30 minutes of cardio exercise or resistance training Health Care Maintenance: - Immunizations: - PCV13/PSV23: never had - Hep A/B: immune to hbv, check A - Influenza: no - COVID:no - Colonoscopy: uptodate Return to clinic in 6 months with VIDA HEATH [employer] Coordinator in Clinical Medicine Department of Internal medicine Pager:[phone] Patient verified name and date of Patient provided scheduling phone numbers for the following departments: Department Ultrasound / [phone] phone number Patient provided scheduling phone numbers for the following departments: Department CT / [phone] phone number Patient verbalized understanding on how to schedule referral. US and CT order printed for patient to complete locally per request. documented in this encounter [facility] 07-22-2022 Instructions Isabelle Ramirez RN - 07/22/2022 1:00 PM EDT General liver Education: - No alcohol - Low-salt diet and to maintain salt intake of less than 2 g a day - Avoid raw seafood including shellfish - Limit use of Tylenol till less than 2 g a day and to avoid use of all NSAIDs - Maintain a high-protein( 1.2- 1.5 g/kg/day), high-calorie diet( 35- 40 kcal/kg/day), and to have a late night protein snack( either Ensure/ Premier protein or apples with peanut butter) - Maintain physical activity at least 3 times a week 30 minutes of cardio exercise or resistance training Patient provided scheduling phone numbers for the following departments: Department Ultrasound / [phone] phone number Patient provided scheduling phone numbers for the following departments: Department CT / [phone] phone number Patient verbalized understanding on how to schedule referral. documented in this encounter [facility] 06-28-2022 History of Presen t illness Narrative I am the infusion center attending for 06/28/2022 Tory Hernadez MD Submarine Element Coordinatorplastic hospital products assembler Department of Rheumatology [place], [place] documented in this encounter [facility] 06-19-2022 History and physical note ENDOSCOPIC PREPROCEDURE HISTORY AND PHYSICAL HISTORY OF PRESENT ILLNESS: Devika Bray is a 46 y.o. female seen in the pre-procedure area at [facility]. The indication for endoscopic evaluation includes: Cirrhosis of liver without ascites, unspecified hepatic cirrhosis type PAST MEDICAL HISTORY: Past Medical History: Diagnosis Date C. difficile diarrhea Congenital medullary sponge kidney Crohn's disease 08/10/2008 Dysmenorrhea Herpes zoster 06/2012 Hx of abnormal cervical Pap smear Migraine Always has have Osteopenia SURGICAL HISTORY: Past Surgical History: Procedure Laterality Date COLONOSCOPY DIAGNOSTIC N/A 01/31/2021 Laterality: N/A; Surgeon: Carolyn Arzate MD; [facility] COLONOSCOPY DIAGNOSTIC N/A 08/05/2018 Laterality: N/A; Surgeon: Carolyn Arzate MD; [facility] COLONOSCOPY DIAGNOSTIC N/A 01/24/2017 Laterality: N/A; Surgeon: Carolyn Arzate MD; Location: [facility] [place] COLECTOMY PARTIAL W/ REMOVAL TERMINAL ILEUM OPEN N/A 03/22/2016 Laterality: N/A; Surgeon: Bernard Rossi MD; Location: [facility] MAIN OR COLONOSCOPY DIAGNOSTIC N/A 03/21/2016 Laterality: N/A; Surgeon: Bernard Rossi MD; Location: [facility] ENDOSCOPY ENTEROSCOPY DOUBLE BALLOON LOWER GI N/A 08/07/2015 Laterality: N/A; Surgeon: Riley Mueller MD; Location: [facility] ENDOSCOPY SECTION x2 COLPOSCOPY HYSTERECTOMY LAP CHOLECYSTECTOMY LITHOTRIPSY renal stones x2 with stents OVARIAN SURGERY Left left ovary removed TONSILLECTOMY TUBAL LIGATION MEDICATIONS: Current Outpatient Medications Medication Instructions acetaminophen (TYLENOL) 500 mg, Oral, EVERY 6 HOURS NEEDED azaTHIOprine (IMURAN) 150 mg, Oral, DAILY Cholecalciferol (VITAMIN D PO) 5,000 Units, Oral, DAILY colestipol (COLESTID) 3 g, Oral, 2 TIMES DAILY Cyanocobalamin (VITAMIN B12) 1,000 mcg, Intramuscular, EVERY 30 DAYS Cyclobenzaprine (FLEXERIL) 10 mg, Oral, NEEDED, 1/2 to 1 tab as needed Doxycycline Monohydrate 50 mg, Oral, DAILY inFLIXimab 100 MG Recon Soln Use infliximab 5 mg/kg every 4 weeks per Crohns protocol inFLIXimab-dyyb (INFLECTRA IV) 410 mg, Intravenous, EVERY 28 DAYS NEEDLE, DISP, 25 G 25G X 1 Misc For B12 injections Ondansetron (ZOFRAN) 4 mg, Oral, EVERY 8 HOURS NEEDED Syringe, Disposable, 5 ML Misc For B12 injections SYRINGE-NEEDLE, DISP, 3 ML 25G X 1 3 ML Misc Use as directed for B12 injections Current Outpatient Medications: acetaminophen 500 MG tablet, Take 1 tablet by mouth every 6 hours as needed for Pain., Disp: , Rfl: azaTHIOprine 50 MG tablet, Take 3 tablets by mouth daily., Disp: 270 tablet, Rfl: 3 Cholecalciferol (VITAMIN D PO), Take 5,000 Units by mouth daily., Disp: , Rfl: colestipol 1 g tablet, Take 3 tablets by mouth 2 times daily., Disp: 540 tablet, Rfl: 3 cyanocobalamin 1000 MCG/ML Solution, Inject 1 mL intramuscularly every 30 days., Disp: 3 mL, Rfl: 3 cyclobenzaprine 10 MG Tab tablet, Take 1 tablet by mouth as needed for Muscle spasms. 1/2 to 1 tab as needed, Disp: , Rfl: Doxycycline Monohydrate 50 MG tablet, Take 1 tablet by mouth daily., Disp: , Rfl: 0 inFLIXimab 100 MG Recon Soln, Use infliximab 5 mg/kg every 4 weeks per Crohns protocol, Disp: 1 Each, Rfl: 0 inFLIXimab-dyyb (INFLECTRA IV), 410 mg by Intravenous route every 28 days., Disp: , Rfl: NEEDLE, DISP, 25 G 25G X 1 Misc, For B12 injections, Disp: 10 Each, Rfl: 3 ondansetron 4 MG tablet, Take 1 tablet by mouth every 8 hours as needed for Nausea / Vomiting., Disp: 60 tablet, Rfl: 6 Syringe, Disposable, 5 ML Misc, For B12 injections, Disp: 25 Each, Rfl: 0 SYRINGE-NEEDLE, DISP, 3 ML 25G X 1 3 ML Misc, Use as directed for B12 injections, Disp: 50 Each, Rfl: 1 ALLERGIES: Allergies Allergen Reactions Elavil [Amitriptyline] Neurontin [Gabapentin] Pentasa [Mesalamine] Percocet [Oxycodone-Acetaminophen] Pt states not allergic to percocet Topamax [Topiramate] FOCUSED REVIEW OF SYSTEMS: Negative for nausea, vomiting, abdominal pain and diarrhea VITAL SIGNS: There were no vitals filed for this visit. PREPROCEDURE PHYSICAL EXAM: AIRWAY: normal, Mallampati: Class II (complete visualization of the uvula) HEART: Regular and No murmur PULMONARY: Lungs clear to auscultation bilaterally ABDOMEN: Soft, nontender, nondistended ASSESSMENT: Devika Bray is a 46 y.o. female is ready for the planned procedure. ASA Class: ASA 2 - Patient with mild systemic disease with no functional limitations PLAN: Will plan to proceed with DIAGNOSTIC UPPER ENDOSCOPY using Moderate Sedation. Carolyn Arzate MD [facility] 06-19-2022 History and physical note ENDOSCOPIC PREPROCEDURE HISTORY AND PHYSICAL HISTORY OF PRESENT ILLNESS: Devika Bray is a 46 y.o. female seen in the pre-procedure area at [facility]. The indication for endoscopic evaluation includes: Cirrhosis of liver without ascites, unspecified hepatic cirrhosis type PAST MEDICAL HISTORY: Past Medical History: Diagnosis Date C. difficile diarrhea Congenital medullary sponge kidney Crohn's disease 08/10/2008 Dysmenorrhea Herpes zoster 06/2012 Hx of abnormal cervical Pap smear Migraine Always has have Osteopenia SURGICAL HISTORY: Past Surgical History: Procedure Laterality Date COLONOSCOPY DIAGNOSTIC N/A 01/31/2021 Laterality: N/A; Surgeon: Carolyn Arzate MD; Location: [facility] COLONOSCOPY DIAGNOSTIC N/A 08/05/2018 Laterality: N/A; Surgeon: Carolyn Arzate MD; [facility] COLONOSCOPY DIAGNOSTIC N/A 01/24/2017 Laterality: N/A; Surgeon: Carolyn Arzate MD; Location: [facility] [place] COLECTOMY PARTIAL W/ REMOVAL TERMINAL ILEUM OPEN N/A 03/22/2016 Laterality: N/A; Surgeon: Bernard Rossi MD; Location: [facility] MAIN OR COLONOSCOPY DIAGNOSTIC N/A 03/21/2016 Laterality: N/A; Surgeon: Bernard Rossi MD; Location: [facility] ENDOSCOPY ENTEROSCOPY DOUBLE BALLOON LOWER GI N/A 08/07/2015 Laterality: N/A; Surgeon: Riley Mueller MD; Location: [facility] SECTION x2 COLPOSCOPY HYSTERECTOMY LAP CHOLECYSTECTOMY LITHOTRIPSY renal stones x2 with stents OVARIAN SURGERY Left left ovary removed TONSILLECTOMY TUBAL LIGATION MEDICATIONS: Current Outpatient Medications Medication Instructions acetaminophen (TYLENOL) 500 mg, Oral, EVERY 6 HOURS NEEDED azaTHIOprine (IMURAN) 150 mg, Oral, DAILY Cholecalciferol (VITAMIN D PO) 5,000 Units, Oral, DAILY colestipol (COLESTID) 3 g, Oral, 2 TIMES DAILY Cyanocobalamin (VITAMIN B12) 1,000 mcg, Intramuscular, EVERY 30 DAYS Cyclobenzaprine (FLEXERIL) 10 mg, Oral, NEEDED, 1/2 to 1 tab as needed Doxycycline Monohydrate 50 mg, Oral, DAILY inFLIXimab 100 MG Recon Soln Use infliximab 5 mg/kg every 4 weeks per Crohns protocol inFLIXimab-dyyb (INFLECTRA IV) 410 mg, Intravenous, EVERY 28 DAYS NEEDLE, DISP, 25 G 25G X 1 Misc For B12 injections Ondansetron (ZOFRAN) 4 mg, Oral, EVERY 8 HOURS NEEDED Syringe, Disposable, 5 ML Misc For B12 injections SYRINGE-NEEDLE, DISP, 3 ML 25G X 1 3 ML Misc Use as directed for B12 injections Current Outpatient Medications: acetaminophen 500 MG tablet, Take 1 tablet by mouth every 6 hours as needed for Pain., Disp: , Rfl: azaTHIOprine 50 MG tablet, Take 3 tablets by mouth daily., Disp: 270 tablet, Rfl: 3 Cholecalciferol (VITAMIN D PO), Take 5,000 Units by mouth daily., Disp: , Rfl: colestipol 1 g tablet, Take 3 tablets by mouth 2 times daily., Disp: 540 tablet, Rfl: 3 cyanocobalamin 1000 MCG/ML Solution, Inject 1 mL intramuscularly every 30 days., Disp: 3 mL, Rfl: 3 cyclobenzaprine 10 MG Tab tablet, Take 1 tablet by mouth as needed for Muscle spasms. 1/2 to 1 tab as needed, Disp: , Rfl: Doxycycline Monohydrate 50 MG tablet, Take 1 tablet by mouth daily., Disp: , Rfl: 0 inFLIXimab 100 MG Recon Soln, Use infliximab 5 mg/kg every 4 weeks per Crohns protocol, Disp: 1 Each, Rfl: 0 inFLIXimab-dyyb (INFLECTRA IV), 410 mg by Intravenous route every 28 days., Disp: , Rfl: NEEDLE, DISP, 25 G 25G X 1 Misc, For B12 injections, Disp: 10 Each, Rfl: 3 ondansetron 4 MG tablet, Take 1 tablet by mouth every 8 hours as needed for Nausea / Vomiting., Disp: 60 tablet, Rfl: 6 Syringe, Disposable, 5 ML Misc, For B12 injections, Disp: 25 Each, Rfl: 0 SYRINGE-NEEDLE, DISP, 3 ML 25G X 1 3 ML Misc, Use as directed for B12 injections, Disp: 50 Each, Rfl: 1 ALLERGIES: Allergies Allergen Reactions Elavil [Amitriptyline] Neurontin [Gabapentin] Pentasa [Mesalamine] Percocet [Oxycodone-Acetaminophen] Pt states not allergic to percocet Topamax [Topiramate] FOCUSED REVIEW OF SYSTEMS: Negative for nausea, vomiting, abdominal pain and diarrhea VITAL SIGNS: There were no vitals filed for this visit. PREPROCEDURE PHYSICAL EXAM: AIRWAY: normal, Mallampati: Class II (complete visualization of the uvula) HEART: Regular and No murmur PULMONARY: Lungs clear to auscultation bilaterally ABDOMEN: Soft, nontender, nondistended ASSESSMENT: Devika Bray is a 46 y.o. female is ready for the planned procedure. ASA Class: ASA 2 - Patient with mild systemic disease with no functional limitations PLAN: Will plan to proceed with DIAGNOSTIC UPPER ENDOSCOPY using Moderate Sedation. Carolyn Arzate MD documented in this encounter [facility] 06-14-2022 History of Presen t illness Narrative Images from the original note were not included. [facility] Follow-up Consultation 06/14/2022 Referring physician: Self Self No address on file PCP: Lindsey Bain [id number] [place] [facility] [id number] Reason for follow-up visit: Crohn's Interval History: Devika Bray 42 y.o. female with PMHx s/f ileocolonic crohn's disease (possibly penetrating phenotype) s/p ileocecetomy 03/22/16, h/o CDI (c diff), adhesive bowel disease, IBS-D who presented to [facility] clinic to discuss Crohn's disease. Last seen by Dr. Cook/Grace 05/04/21 Still on inflectra [id number] at [facility] and aza 50mg every day No issues since last year, no cdiff, no hospitalization Always has headaches, but improved, vision is worsening seeing an eye doctor, last eye exam was November showed a slight change. Still needs to see dermatology No nausea or vomiting. No dysphagia. No chest pain or shortness of breath. No jaundice, icterus or redness of eyes. Does have achy abdominal pain in RLQ 2-3 times a week, no association with eating, lasts a all night sometimes but uses heating pad and it helps. Has zofran and dicyclomine as needed for management and using infrequently. No nsaid use, no other medicines for the pain. Has 2-3 BM a day formed and brown. Is still taking colestipol for bile acid diarrhea.Weight as been stable/increasing. No leg swelling Recently diagnosed with elevated LFT and imaging found cirrhosis (described below). She has no personal history of liver disease or ETOH use. Testing as below was largely negative for etiology. IBD history Diagnosed (age) 2013 - Disease distribution: ileocolonic Conyers Classification: A2 17-40; L3 ileocolonic; B1 non-penetrating, non-stricturing vs B3 penetrating GI surgical history: ileocecectomy 03/22/16 with primary anastomosis Current therapy: Inflectra (since 12/2017) q4wk + AZA 150mg po daily. IFX q4wk + azathioprine (04/2015 - 12/2017) Past therapy: Adalimumab 08/2013-02/2015 (stopped per OSH GI after no e/o disease), prednisone prn Last colonoscopy: 01/31/21 with healthy appearing ileocolonic anastomosis, normal appearing colon. Last EGD: she thinks she has had one but can't remmeber Last imaging: [facility]RE (03/2017) - Mild active disease in colon Complications: none Last labs 11/16/20 Anser labs: IFX 10.5 Ab 0.0 Liver labs Labs - ast 49 alt 22 total bli within normal limits A1AT MM hemochromatosis-associated germline variants C282Y and H63D in the HFE gene are NOT detected. CRESENCIO ASM AMA ttg within normal limits Hep panel negative except hep b surg ab RUQ US 01/2022 Increased hepatic echogenicity with nodular contour suggestive of cirrhosis. No focal hepatic lesion. Transient elastography KPA > 60 EGD ordered Medical History Updates: I have reviewed and updated the past medical history, family history, and social history in [facility] as applicable. There is no immunization history on file for this patient. Allergies: Allergies Allergen Reactions Elavil [Amitriptyline] Neurontin [Gabapentin] Pentasa [Mesalamine] Percocet [Oxycodone-Acetaminophen] Pt states not allergic to percocet Topamax [Topiramate] Current Medications: Current Outpatient Medications Medication Sig Dispense Refill acetaminophen 500 MG tablet Take 1 tablet by mouth every 6 hours as needed for Pain. azaTHIOprine 50 MG tablet Take 3 tablets by mouth daily. 270 tablet 3 Cholecalciferol (VITAMIN D PO) Take 5,000 Units by mouth daily. colestipol 1 g tablet Take 3 tablets by mouth 2 times daily. 540 tablet 3 cyanocobalamin 1000 MCG/ML Solution Inject 1 mL intramuscularly every 30 days. 3 mL 3 cyclobenzaprine 10 MG Tab tablet Take 1 tablet by mouth as needed for Muscle spasms. 1/2 to 1 tab as needed Doxycycline Monohydrate 50 MG tablet Take 1 tablet by mouth daily. 0 inFLIXimab 100 MG Recon Soln Use infliximab 5 mg/kg every 4 weeks per Crohns protocol 1 Each 0 inFLIXimab-dyyb (INFLECTRA IV) 410 mg by Intravenous route every 28 days. NEEDLE, DISP, 25 G 25G X 1 Misc For B12 injections 10 Each 3 ondansetron 4 MG tablet Take 1 tablet by mouth every 8 hours as needed for Nausea / Vomiting. 60 tablet 6 Syringe, Disposable, 5 ML Misc For B12 injections 25 Each 0 SYRINGE-NEEDLE, DISP, 3 ML 25G X 1 3 ML Misc Use as directed for B12 injections 50 Each 1 No current facility-administered medications for this visit. Review of Systems: Review of Systems - as above Vital Signs: BP 126/78 (BP Location: Right arm, BP Position: Sitting) Pulse 81 Temp 97.4 F (36.3 C) (Temporal) Resp 18 Ht 1.676 m (5' 6 ) Wt 83.5 kg (184 lb) SpO2 97% BMI 29.70 kg/m Smoking Status Never Physical Exam: Gen: Alert and oriented. Laying in bed comfortably Eyes: LOVE, EOMI, no scleral icterus ENT: Nares patent, throat without erythema or thrush, no oral lesions Resp: CTAB without wheezes or crackles or rhonchi. No accessory muscle use Cardio: RRR without murmurs or gallops. No S3/S4/JVD GI: Abdomen soft, nontender, and without masses. No rebound tenderness, bowel sounds present, no caput medusa Extremities: Warm, distal pulses 2+, no LE edema Skin: No open wounds or rashes, no jaundice Neuro: CN II-XII grossly intact Laboratory Review: I have reviewed the labs. Lab Results Component Value Date WBC 4.99 04/18/2022 HGB 13.3 04/18/2022 HCT 39.6 04/18/2022 PLATELET 156 04/18/2022 MCV 95.2 04/18/2022 Lab Results Component Value Date SODIUM 141 04/18/2022 POTASSIUM 3.9 04/18/2022 CHLORIDE 104 04/18/2022 CREATSERUM 0.87 04/18/2022 Lab Results Component Value Date ALT 22 04/18/2022 AST 49 (H) 04/18/2022 GGT 92 (H) 02/08/2022 ALKPHOS 66 04/18/2022 BILITOTAL 0.8 04/18/2022 BILIDIRECT 0.2 04/18/2022 Inflammatory Markers Lab Results Component Value Date SEDRATE 16 05/04/2021 Lab Results Component Value Date CRP 1.63 05/04/2021 Fecal Calprotectin No results found for: CLPRTCTINSTL Micronutrients Lab Results Component Value Date ZNCSERUM 86 10/27/2020 YSSF12KFK 27.1 (L) 05/04/2021 FERRITIN 556.7 (H) 02/08/2022 FOLATE 7.77 10/27/2020 IRON 81 02/08/2022 TIBC 301 02/08/2022 IRONSATURAT 27 02/08/2022 B12 459 10/27/2020 Biologic Labs Lab Results Component Value Date MTUBERQUANT Negative 02/08/2022 Lab Results Component Value Date THIOPMETTR 15 12/18/2015 Lab Results Component Value Date HEPATITISB Negative 02/08/2022 HEPBSURFAB Positive (A) 02/08/2022 HEPCAB Negative 02/08/2022 No results found for: HEPABIG Impression: Devika Bray 42 y.o. female with PMHx s/f ileocolonic crohn's disease (possibly penetrating phenotype) s/p ileocecetomy 03/22/16, h/o CDI (c diff), adhesive bowel disease, IBS-D who presented to [facility] clinic to discuss Crohn's disease. #Ileocolonic crohn's disease (possibly penetrating phenotype) s/p ileocecetomy 03/22/16: on infliximab (Inflectra) every 4 weeks and azathioprine. Last levels in October 2020 with therapeutic levels and no antibiotics. #Abdominal pain, nausea, diarrhea: In 2020, Normal Inflectra levels/no antibodies, Normal colonoscopy. Thus likely functional/visceral hyperalgesia in nature. Will continue to monitor and treat with zofran and dicyclomine as needed #cirrhosis - newly diagnosed after abnormal LFT found. Compensated. Given findings of elastography will perform EGD for esophageal varices screening and defer to hepatology team for further diagnostics (to follow with Dr. Conklin) Plan: - continue Inflectra 5 mg/kg every 4 weeks, continue azathioprine - continue Zofran, bentyl PRN and Colestipol - advised patient to see dermatology, hepatology - EGD next week for esophageal varices screening with Dr. Arzate - colonoscopy for colon cancer screening in 2023 - RTC in 6 months Healthcare maintenance, appreciate PCP helping with: - Live vaccines should generally be avoided (eg. Zoster/Shingles) - Influenza vaccine: recommend annually - Prevnar (PCV-13) vaccine: If not already received, then followed 8weeks later with PPSV-23 - Pneumovax (PPSV-23) vaccine: as above, due for booster 5 years after; and again at age 65 - Hepatitis A: immunized in the past - Hepatitis B: immune - HPV vaccine: recommend f/u with PCP if not already done - TB status: quantiferon gold - 04/16/21 negative - Cervical cancer: counseled. F/u with primary provider for routine screening - Skin cancer: counseled. F/u with dermatology for annual skin exams - Bone density: DEXA 10/2019 normal. Repeat in 2022 - Smoking status: non-smoker Follow Up: We will see the patient back in clinic in 6 months. The patient was given ample opportunity to ask any questions and their questions were answered. I spent 20 minutes with the patient with over 50% of the time counseling the patient as documented above. Staffed and seen with attending physician Dr. Grace Waterman MD Fellow Physician Division of Gastroenterology, Hepatology & Nutrition Department of Internal Medicine [facility] Pager [phone] or Epic Chat with questions This Chassis Engineer verified the patients name and date of . I saw and evaluated Ms. Bray today along with Dr. Cook. I have revised the note as needed and agree with the documentation. She has Crohns disease. She is on infliximab every 4 weeks and azathioprine. Levels looked good when checked last . She was previously on adalimumab. Her last colonoscopy showed remission. She is on colestipol and ondansetron for IBS-D and bile acid diarrhea. She is doing well with stable, intermittent abdominal pains. We will continue current regimen. DEXA due . We can order this at next appointment. Colonoscopy every 3 years at this point so will do this in . She is seeing a manager of sales closer to home. Major update is fibroscan concerning for cirrhosis. She is established with Hepatology. EGD scheduled for next week. Carolyn Arzate MD Shell Coremaker, Division of Gastroenterology, Hepatology & Tank Pumper, Section of Intestinal Neoplasia and Hereditary Polyposis [facility] documented in this encounter [facility] 06-14-2022 Instructions Sheree Waterman MD - 06/14/2022 10:00 AM EDT Nice to meet you! Continue your medications for Crohn's and your colestipol. You are due for a DEXA scan and to follow up with dermatology. Let's get your EGD next week. And follow with the liver doctor for further workup See you in 6 months! Sheree Waterman MD Fellow Physician Division of Gastroenterology, Hepatology & Nutrition Department of Internal Medicine [facility] Pager [phone] or Epic Chat with questions documented in this encounter [facility] 05-31-2022 History of Presen t illness Narrative I am the [facility] center attending for 05/31/2022 Tory Hernadez MD Submarine Element Coordinatorplastic hospital products assembler Department of Rheumatology [place], [place] documented in this encounter [facility] 05-24-2022 History of Presen t illness Narrative 05/24/2022 Devika Bray was seen in the Hepatology Clinic today for the FibroScan procedure. Patient denies being and without implantable devices. Patient states they have been NPO except for water for the past 3 hours. Devika Bray was comfortable in a lying supine position with right arm raised above the head. Ultrasound-like probe was positioned on the skin over the liver area with ultrasonic gel at the right mid-axillary line. Vibration was generated by the probe to collect a minimum of 10 measureable readings. Patient was released to home after testing. Division of Gastroenteroloy, Hepatology & Nutrition [facility] documented in this encounter [facility] 05-24-2022 Procedure note Associated Ord er(s): GA LIVER ELASTOGRAPHY W/O IMAG W/I&R Images from the original note were not included. Patient:Devika Bray Date of Interpretation: 05/24/2022 : 1975 Michelle Marr APRN-C* Indication: Liver Disease Procedure: After providing oral explanations of the procedure to the patient, patient was place in the supine position with right arm in maximum abduction to allow optimal exposure of right lateral abdomen. Patient abdomen was briefly assessed to identify to the terminus of the xiphoid process. The ideal target testing spot was located mid-line and lateral to this point. To acquire proper signals, the skin to the liver capsule distance was accessed with the FibroScan probe. Patient was instructed to breathe normally and to abstain from sudden movements during the procedure. Sheer waves were produced and 10 or more measurements of the speed of each wave evaluated. Patient tolerated the procedure well and was discharged without incidence. Findings: ---- Median shear wave speed of 4.63 meters/second. ---- This corresponds to a median Liver Stiffness Score of 64.4 kPA. ---- IQR 18*% ---- Median CAP was 369 dB/m Impression: F4 fibrosis/cirrhosis >S3 steatosis (Diagnostic accuracy may be affected in patients with significant obesity, congested heart failure, active alcohol abuse, acute hepatitis, or ascites.) Recommendations: - Fibroscan indicates clinically significant hepatic fibrosis (? F2) and clinically significant steatosis (? S2). - Healthy lifestyle with diet and exercise is generally recommended for fatty liver disease. - Consider referral to hepatology if stiffness score ? 8.0 kPa. Otherwise, may repeat fibroscan every 2 years if presence of significant hepatic steatosis. - Continue follow up with the referring physician for further management. Michelle Marr APRN-[facility] Hepatology Nurse Practitioner Division of Gastroenterology, Hepatology, & Nutrition [facility] For further information on diagnosis and management of non-alcoholic fatty liver disease (NAFLD), please refer to [facility] Clinical Practice Guidelines at: 1. [email or web address] s/ebm/Documents/Guidelines/Non-A lcoholicFattyLiverDisease.pdf (access to [employer] employees only) 2. [email or web address]/li jennifer-diseases/bodss-tsecv-yzuzfxl ([facility] NAFLD website) 3. https://www.healthwise.net/osYellowKornery chart/Content/StdDocument.aspx?D OCHWID=[email or web address] (patient education on NAFLD) My interpretation of this Vibration Controlled Transient Elastography (VCTE) study was developed after careful consideration of the patient s current medical evidence. Any and all FibroScan studies must be carefully evaluated, taking fully into account all individual measurements/scans, patient history and other factors. Any further medical or surgical intervention should be made only while fully considering the circumstances of the patient, in consultation with this patient, fully informed by the product characteristics of any drugs or treatment protocols. [facility] Work Phone: 05-24-2022 Procedure note Associated Ord er(s): GA LIVER ELASTOGRAPHY W/O IMAG W/I&R Images from the original note were not included. Patient:Devika Bray Date of Interpretation: 05/24/2022 : 1975 Michelle Marr APRN-C* Indication: Liver Disease Procedure: After providing oral explanations of the procedure to the patient, patient was place in the supine position with right arm in maximum abduction to allow optimal exposure of right lateral abdomen. Patient abdomen was briefly assessed to identify to the terminus of the xiphoid process. The ideal target testing spot was located mid-line and lateral to this point. To acquire proper signals, the skin to the liver capsule distance was accessed with the FibroScan probe. Patient was instructed to breathe normally and to abstain from sudden movements during the procedure. Sheer waves were produced and 10 or more measurements of the speed of each wave evaluated. Patient tolerated the procedure well and was discharged without incidence. Findings: ---- Median shear wave speed of 4.63 meters/second. ---- This corresponds to a median Liver Stiffness Score of 64.4 kPA. ---- IQR 18*% ---- Median CAP was 369 dB/m Impression: F4 fibrosis/cirrhosis >S3 steatosis (Diagnostic accuracy may be affected in patients with significant obesity, congested heart failure, active alcohol abuse, acute hepatitis, or ascites.) Recommendations: - Fibroscan indicates clinically significant hepatic fibrosis (? F2) and clinically significant steatosis (? S2). - Healthy lifestyle with diet and exercise is generally recommended for fatty liver disease. - Consider referral to hepatology if stiffness score ? 8.0 kPa. Otherwise, may repeat fibroscan every 2 years if presence of significant hepatic steatosis. - Continue follow up with the referring physician for further management. MIRIAM Wall Hepatology Nurse Practitioner Division of Gastroenterology, Hepatology, & Nutrition [facility] For further information on diagnosis and management of non-alcoholic fatty liver disease (NAFLD), please refer to [facility] Clinical Practice Guidelines at: 1. https://[email or web address].[email or web address]/site s/ebm/Documents/Guidelines/Non-A lcoholicFattyLiverDisease.pdf (access to [employer] employees only) 2. [email or web address]/li jennifer-diseases/yuqfd-gcfxs-vkofckk ([facility] NAFLD website) 3. https://www.MobileOCT.net/Unighty chart/Content/StdDocument.aspx?D OCHWID=[email or web address] (patient education on NAFLD) My interpretation of this Vibration Controlled Transient Elastography (VCTE) study was developed after careful consideration of the patient s current medical evidence. Any and all FibroScan studies must be carefully evaluated, taking fully into account all individual measurements/scans, patient history and other factors. Any further medical or surgical intervention should be made only while fully considering the circumstances of the patient, in consultation with this patient, fully informed by the product characteristics of any drugs or treatment protocols. documented in this encounter [facility] 05-03-2022 History of Presen t illness Narrative I am the infusion center attending for 05/03/2022 Tory Hernadez MD Submarine Element Coordinatorplastic hospital products assembler Department of Rheumatology [place], [place] documented in this encounter [facility] 04-18-2022 History of Presen t illness Narrative Clinical Care Team: -Referring Provider for today's consult: Carolyn Arzate MD -Primary Care Provider: Carolyn Becker MD Today, we had the pleasure of seeing your patient Devika Bray at the [facility] @ [facility] Gastroenterology, Hepatology and Nutrition Clinic on 04/18/2022. Thank you for referring the patient to the [facility] Gastroenterology, Hepatology and Nutrition Clinic. If you have any questions or concerns please feel free to contact my office. Chief Complaint Patient presents with New Patient Elevated Liver Enzymes History of Present Illness: Devika Bray is a 46 y.o. female who presents to the [facility] Hepatology Clinic today for consultation regarding her diagnosis of abnormal LFT's. She has a PMH of HSV, dysmenorrhea, osteopenia, Chron's (managed on infliximab and azathioprine, follows with [facility] IBD clinic) Per chart review, hepatic steatosis and hepatomegaly first noted on CT A/P in 2016. Most recent RUQ US 01/2022 revealing nodular contour of the liver, suggestive of cirrhosis. She has had an elevated AST since 10/2020. Peak AST 101 in 12/2021 and most recent AST 47 in 01/2022. Additionally, her ferritin has been elevated since 2017. Most recent ferritin 01/2022 556. HFE testing negative for C282Y and H63D genetic mutations. Additional autoimmune, genetic and viral serologic workup unremarkable. Ms Bray is seen in clinic today accompanied by her . She reports everthing has been going well. Her energy level is stable. She endorses occasional memory fog, which has been ongoing. She denies jaundice, ascites, LE edema, hematemesis, hematochezia, melena. She denies ETOH use. She denies any recent abx, OTC meds or herbal supplements. She denies any family history of liver disease. Patient denies any current fevers, unexpected weight loss, any new visual complaints, headaches, sore throat, heartburn, dysphagia, cough, chest pain, shortness of breath, nausea, vomiting, abdominal pain, diarrhea, constipation, dysuria, hematuria, or rashes. I have reviewed her extensive medical, surgical, family and social history and have updated medication and allergy information in the computerized patient record. Past Medical History Past Medical History: Diagnosis Date C. difficile diarrhea Congenital medullary sponge kidney Crohn's disease 08/10/2008 Dysmenorrhea Herpes zoster 06/2012 Hx of abnormal cervical Pap smear Migraine Always has have Osteopenia Past Surgical History Past Surgical History: Procedure Laterality Date COLONOSCOPY DIAGNOSTIC N/A 01/31/2021 Laterality: N/A; Surgeon: Carolyn Arzate MD; Location: [facility] E ENDOSCOPY COLONOSCOPY DIAGNOSTIC N/A 08/05/2018 Laterality: N/A; Surgeon: Carolyn Arzate MD; Location: [facility] E ENDOSCOPY COLONOSCOPY DIAGNOSTIC N/A 01/24/2017 Laterality: N/A; Surgeon: Carolyn Arzate MD; Location: [facility] ENDOSCOPY [place] COLECTOMY PARTIAL W/ REMOVAL TERMINAL ILEUM OPEN N/A 03/22/2016 Laterality: N/A; Surgeon: Bernard Rossi MD; Location: [facility] MAIN OR COLONOSCOPY DIAGNOSTIC N/A 03/21/2016 Laterality: N/A; Surgeon: Bernard Rossi MD; Location: [facility] ENDOSCOPY ENTEROSCOPY DOUBLE BALLOON LOWER GI N/A 08/07/2015 Laterality: N/A; Surgeon: Riley Mueller MD; Location: [facility] ENDOSCOPY SECTION x2 COLPOSCOPY HYSTERECTOMY LAP CHOLECYSTECTOMY LITHOTRIPSY renal stones x2 with stents OVARIAN SURGERY Left left ovary removed TONSILLECTOMY TUBAL LIGATION Family History Family History Problem Relation Age of Onset Lipid Disorder Mother Hypertension Mother Thyroid Disease Mother Bleeding or Clotting Problems Mother Lung Cancer Mother Hypertension Paternal Aunt Cancer- Other Father metastatic cancer (unknown source) Cancer- Other Brother B cell Lymphoma Cancer- Other Brother Cancer- Other Brother Hypertension Paternal Aunt Colorectal Cancer Neg Hx GI Disease Neg Hx Social History Social History Socioeconomic History Marital status: Tobacco Use Smoking status: Never Smokeless tobacco: Never Substance and Sexual Activity Alcohol use: Never Drug use: Never Sexual activity: Yes Partners: Male Other Topics Concern Occupational Exposure No Hobby Hazards No Medications Current Outpatient Medications Medication Sig acetaminophen 500 MG tablet Take 1 tablet by mouth every 6 hours as needed for Pain. azaTHIOprine 50 MG tablet Take 3 tablets by mouth daily. Cholecalciferol (VITAMIN D PO) Take 5,000 Units by mouth daily. colestipol 1 g tablet Take 3 tablets by mouth 2 times daily. cyanocobalamin 1000 MCG/ML Solution Inject 1 mL intramuscularly every 30 days. cyclobenzaprine 10 MG Tab tablet Take 1 tablet by mouth as needed for Muscle spasms. 1/2 to 1 tab as needed Doxycycline Monohydrate 50 MG tablet Take 1 tablet by mouth daily. inFLIXimab 100 MG Recon Soln Use infliximab 5 mg/kg every 4 weeks per Crohns protocol NEEDLE, DISP, 25 G 25G X 1 Misc For B12 injections ondansetron 4 MG tablet Take 1 tablet by mouth every 8 hours as needed for Nausea / Vomiting. Syringe, Disposable, 5 ML Misc For B12 injections SYRINGE-NEEDLE, DISP, 3 ML 25G X 1 3 ML Misc Use as directed for B12 injections Allergies Elavil [amitriptyline], Neurontin [gabapentin], Pentasa [mesalamine], Percocet [oxycodone-acetaminophen], and Topamax [topiramate], Immunizations There is no immunization history on file for this patient. Review of Systems Constitutional: Negative for malaise/fatigue. Negative for weight loss and weight gain. Skin: Negative. Eyes: Negative. Cardiovascular: Negative. Respiratory: Negative. Gastrointestinal: Negative for nausea, vomiting, abdominal pain, diarrhea, constipation, blood in stool and melena. Musculoskeletal: Negative. Neurological: Negative. Negative for loss of consciousness. Psychiatric: Negative for memory loss. Negative for insomnia. Negative for substance abuse. Lymph/Heme: Negative Physical Exam BP 124/80 (BP Location: Right arm, BP Position: Sitting) Pulse 90 Resp 16 Ht 1.676 m (5' 6 ) Wt 82.6 kg (182 lb) SpO2 96% BMI 29.38 kg/m Smoking Status Never Constitutional: Well developed, well nourished, in no acute distress. Oriented to person, place, and time. HEENT: Normocephalic, negative for any scleral icterus. Cardiovascular: Regular rate and rhythm, with a normal S1/S2, without any appreciable murmurs, rubs or gallops. Pulmonary: Normal breath sounds, without any appreciable crackles, wheezing or rhonchi. Abdominal: Soft, nontender, nondistended with normal bowel sounds. Negative for any appreciable hepatosplenomegaly. Extremities: No LE edema. Skin: Negative for any appreciable rashes. Psych: Negative for depression Laboratory Evaluation I have reviewed her pertinent laboratory data in the computerized patient records. Lab Results Component Value Date ALT 24 04/05/2022 ALT 8 (L) 09/25/2017 AST 60 (H) 04/05/2022 AST 14 09/25/2017 GGT 92 (H) 02/08/2022 INR 1.1 03/23/2016 PT 14.2 03/23/2016 02/08/2022 Extensive serologies A1AT 154 HFE C282Y negative HFE H63D negative Ferritin 556.7 Iron 81 TIBC 301 Iron Sat 27 Transferrin 2441 CRESENCIO negative AMA negative ASMA negative IgG 994 IgA 289 IgM 140 tTg IgG <1.2 tTg IgA Ab <1.2 Imaging/Procedures 02/08/2022 RUQ US IMPRESSION: - Increased hepatic echogenicity with nodular contour suggestive of cirrhosis. No focal hepatic lesion. - Numerous right renal nonobstructive calculi seen on prior CT. No right-sided Hydronephrosis. 02/08/2019 CT A/P Impression: - Fatty infiltration of the liver - S/p jon, hysterectomy and appendectomy - Prior surgical resection of the distal ileum - 2 cm right ovarian cyst 09/12/2016 CT A/P WITH CONTRAST IMPRESSION: 1. Patient is status post ileocecectomy with patent anastomosis. 2. No evidence of active inflammatory bowel disease. 3. Multiple cysts associated with the left ovary are nonspecific. If clinically indicated these can be further evaluated with dedicated pelvic ultrasound. 4. Hepatic steatosis with hepatomegaly. 5. Status post hysterectomy and cholecystectomy. 08/05/2018 Colonoscopy Impression: - The examined portion of the ileum was normal. - Patent functional end-to-end ileo-colonic anastomosis, characterized by healthy appearing mucosa. - The rectum, sigmoid colon, descending colon and transverse colon are normal. Biopsied. - Internal hemorrhoids. - The examination was otherwise normal on direct and retroflexion views. Assessment/Plan: Devika Bray is a 46 y.o. female who abnormal LFTs who presents in consultation. She has a PMH of HSV, dysmenorrhea, osteopenia, Chron's (managed on infliximab and azathioprine, follows with [facility]). Per chart review, hepatic steatosis and hepatomegaly first noted on CT A/P in 2016. Most recent RUQ US 01/2022 revealing nodular contour of the liver, suggestive of cirrhosis. She has had an elevated AST since 10/2020. Peak AST 101 in 12/2021 and most recent AST 47 in 01/2022. Additionally, her ferritin has been elevated since 2017. Most recent ferritin 01/2022 556. HFE testing negative for C282Y and H63D genetic mutations. Additional autoimmune, genetic and viral serologic workup unremarkable. - MELD labs and AFP today - 01/2022 RUQ US suggestive of cirrhosis, will order fibroscan to stage fibrosis - Most recent plts 131. Will determine need for EGD pending fibroscan - Return to clinic in 3-4 months with Hepatology physician - Plans have been discussed with the patient and all the questions have been answered to she satisfaction. I discussed my impression and plan with the patient. The patient had the opportunity to ask all questions regarding their condition and answered those questions to the best of my ability Discussion with patient and /or family with regards to: Diagnostic results and or recommended studies Risks and benefits of management or treatment options Important of compliance with chosen treatment Risk factor reduction Patient and family education MIRIAM Wall Hepatology Nurse Practitioner Division of Gastroenterology, Hepatology, & Nutrition [facility] Diagnoses and associated orders for this visit: ICD-10-CM 1. Liver disease K76.9 CBC, EDIF, PLATELET HEPATIC FUNCTION PANEL PROTIME-INR AFP TUMOR MARKER [id number] PHENOTYPE TRANSIENT ELASTOGRAPHY US IMAGING TRANSIENT ELASTOGRAPHY CHEM 6 (LYTES, BUN CREA) 2. Fatty liver K76.0 This nurse verified pts name and . documented in this encounter [facility] 04-18-2022 Instructions MIRIAM Wall - 04/18/2022 9:30 AM EST - We will get blood work today to check your liver enzymes - We will order a fibroscan to check for any fibrosis (scarring) of your liver - Return to clinic in 3-4 months documented in this encounter [facility] 04-05-2022 History of Presen t illness Narrative Infusion attending 04/05/2022 Hector Villela MD Department of Internal Medicine Division of Immunology/Rheumatology documented in this encounter [facility] 03-08-2022 History of Presen t illness Narrative I am the infusion center attending for 03/08/2022 Tory Hernadez MD Submarine Element Coordinatorplastic hospital products assembler Department of Rheumatology [place], [place] documented in this encounter [facility] 02-08-2022 History of Presen t illness Narrative I am the infusion center attending for 02/08/2022 Tory Hernadez MD Submarine Element Coordinatorplastic hospital products assembler Department of Rheumatology [place], [place] documented in this encounter [facility] 12-14-2021 History of Presen t illness Narrative I am the infusion center attending for 12/14/2021 Tory Hernadez MD Submarine Element Coordinatorplastic hospital products assembler Department of Rheumatology [place], [place] documented in this encounter [facility] 11-16-2021 History of Presen t illness Narrative I am the infusion center attending for 11/16/2021 Tory Hernadez MD Submarine Element Coordinatorplastic hospital products assembler Department of Rheumatology [place], [place] documented in this encounter [facility] 10-19-2021 History of Presen t illness Narrative I was the infusion attending for this visit on 10/19/21. Sumanth Diaz MD Clinical Instructor House Staff Department of Internal Medicine Division of Rheumatology and Immunology . documented in this encounter [facility] 09-21-2021 History of Presen t illness Narrative I was the infusion attending for this visit on 09/21/21. Sumanth Diaz MD Clinical Instructor House Staff Department of Internal Medicine Division of Rheumatology and Immunology . documented in this encounter [facility] 07-27-2021 History of Presen t illness Narrative I was the infusion attending for this visit on 07/27/21. Sumanth Diaz MD Clinical Instructor House Staff Department of Internal Medicine Division of Rheumatology and Immunology . documented in this encounter [facility] 10-27-2020 History of Presen t illness Narrative I saw and evaluated Ms. Bray today along with Dr. Cook. I have revised the note as needed and agree with the documentation. She has Crohns disease. She is on infliximab every 4 weeks and azathioprine. Levels looked good when last checked . She was previously on adalimumab. Her last colonoscopy showed remission. She is on colestipol and Librax for IBS-D and bile acid diarrhea. She is having multiple loose stools towards end of her interval. She is already on 4 week interval, so no clear avenue for empiric adjustment. Will check infliximab levels before next dose. If adequate, we will plan colonoscopy to assess for activity. If antibodies, will likely change therapy. Recommended Dermatology also. Carolyn Arzate MD Shell Coremaker, Division of Gastroenterology, Hepatology & Tank Pumper, Section of Intestinal Neoplasia and Hereditary Polyposis [facility] GASTROENTEROLOGY CLINIC FOLLOW-UP VISIT Referring Provider for today's consult: Self, Self Primary Care Provider: Lindsey Bain Chief Complaint Patient presents with Follow-up Inflammatory Bowel Disease History of Present Illness Devika Bray 42 y.o. female with PMHx s/f ileocolonic crohn's disease (possibly penetrating phenotype) s/p ileocecetomy 03/22/16, h/o CDI (c diff), adhesive bowel disease, IBS-D who presented to [facility] clinic to discuss Crohn's disease. For Crohn's disease, she is on infliximab 5mg/kg Q4 weeks and azathioprine 150mg daily. Colonoscopy was on 08/05/18 with healthy appearing ileocolonic anastomosis, normal appearing colon. For IBS-D and bile acid diarrhea, she is on colestipol and Librax. Patient seen on 12/05/19, found to have abdominal pain, diarrhea for several weeks. She was thought to have an active Crohn's flare vs IBS. CTAP on 02/08/19 did not report inflammation, did show hepatic steatosis. She was given rifaximin for symptoms. She had an episode of dark emesis in January 2019, was advised to go to the local ED. CTAP there did not show acute changes. EGD was not performed. Patient improved with symptomatic relief. Colonoscopy 08/05/18 with normal appearing ileocolonic anastomosis, otherwise normal. Interval History: Patient complains of lower abdominal pain, nausea, and intermittent non-bloody diarrhea up to 4 times a day for the last 2 months. She notices symptoms only appear the week before her Inflectra dose is due. Symptoms improve upon infusion. She is also taking Zofran, Librax, and Colestipol as prescribed. She otherwise denies any EIM symptoms including skin changes, vision changes, and joint pain. She denies any dysphagia, vomiting, heartburn, constipation, hematochezia, rectal drainage. IBD history Diagnosed (age) 2013 - Disease distribution: ileocolonic Sabas Classification: A2 17-40; L3 ileocolonic; B1 non-penetrating, non-stricturing vs B3 penetrating GI surgical history: ileocecectomy 03/22/16 with primary anastomosis Current therapy: Inflectra (since 12/2017) q4wk + AZA 150mg po daily. IFX q4wk + azathioprine (04/2015 - 12/2017) Past therapy: Adalimumab 08/2013-02/2015 (stopped per [facility] after no e/o disease), prednisone prn Last colonoscopy: 08/05/18 with healthy appearing ileocolonic anastomosis, normal appearing colon. Last imaging: [facility] (03/2017) - Mild active disease in colon Complications: Allergies She is allergic to elavil [amitriptyline], neurontin [gabapentin], pentasa [mesalamine], percocet [oxycodone-acetaminophen], and topamax [topiramate]. Current Outpatient Medications Medication Sig acetaminophen (TYLENOL) 500 MG Tab take 500 mg by mouth every 6 hours as needed for Pain.. azaTHIOprine 50 MG tablet Take 3 tablets by mouth once daily azaTHIOprine 50 MG tablet Take 3 tablets by mouth daily. chlordiazepoxide-clidinium (Librax) 5-2.5 MG capsule Take 1 capsule by mouth every 6 hours as needed. Cholecalciferol (VITAMIN D PO) Take 5,000 Units by mouth daily. colestipol 1 g tablet Take 3 tablets by mouth 2 times daily. cyanocobalamin 1000 MCG/ML Solution Inject 1 mL intramuscularly every 30 days. Please provide syringes & needles cyclobenzaprine 10 MG Tab tablet Take 10 mg by mouth as needed for Muscle spasms. 1/2 to 1 tab as needed hyoscyamine 0.375 MG Tab SR 12 HR Take 1 tablet by mouth 2 times daily. inFLIXimab-dyyb (INFLECTRA) 100 MG Recon Soln 38 mL by Intravenous route every 28 days. metronidazole 0.75 % Cream cream 1 Application by Topical route 2 times daily. ondansetron 4 MG tablet Take 1 tablet by mouth every 8 hours as needed for Nausea / Vomiting. SYRINGE-NEEDLE, DISP, 3 ML 24G X 1 3 ML Misc To use with B12 injections Family History family history includes Bleeding or Clotting Problems in her mother; Cancer- Other in her brother and brother; Cancer- Other (age of onset: 43) in her brother; Cancer- Other (age of onset: 59) in her father; Hypertension in her mother, paternal aunt, and paternal aunt; Lipid Disorder in her mother; Thyroid Disease in her mother. Social History Social History Social History Narrative Not on file Review of Systems A full review of systems was performed and is negative unless otherwise stated in the HPI. Physicial Exam: BP 123/76 Pulse 80 Temp 97.5 F (36.4 C) Ht 1.689 m (5' 6.5 ) Wt 82.1 kg (181 lb) SpO2 99% BMI 28.78 kg/m Smoking Status Never Smoker Wt Readings from Last 3 Encounters: 10/27/20 82.1 kg (181 lb) 12/04/18 78.5 kg (173 lb) 04/24/18 78.4 kg (172 lb 12.8 oz) General: NAD, resting comfortably in chair HEENT: AT/NC, no scleral icterus, oropharynx unremarkable Lungs: CTABL, no wheezing, rales, rhonchi Heart: RRR, no murmurs, rubs, gallops Abdomen: +BS, soft, NT/ND, no rebound/guarding Extremities: 2+ pedal/radial pulses, no cyanosis, no pedal edema, no obvious jaundice Neurologic: AAOx3, CN2-12 grossly intact, no asterixis Labs/imaging: All relevant prior procedures, laboratory and radiology images were reviewed. Assessment/Plan Devika Bray is a 45 y.o. female who was seen in the [facility] for Crohn's Disease. IMPRESSION: 1. Abdominal pain, nausea, diarrhea: etiology possibly IBS-D vs SIBO. Possibly related to Crohn's due to symptoms being worse right before infusion and improve on infusion. Remicade levels / antibodies warranted as she may be subtherapeutic or have developed antibodies causing pre-infusion symptoms. If levels are normal, repeat colonoscopy warranted for assessment of Crohn's related inflammation. She has responded well to Rifaximin in the past for similar symptoms, and if above work up is normal then repeat course can be considered. 2. Ileocolonic crohn's disease (possibly penetrating phenotype) s/p ileocecetomy 03/22/16: on infliximab every 4 weeks and azathioprine. Last levels in November 2018 with therapeutic levels and no antibiotics. Last dose was 10/20. ASSESSMENT/PLAN: - continue Librax / Zofran / Colestipol as needed - will routine labs today - stool studies - Remicade levels and antibodies before next infusion (last infusion on 10/20). - if levels / antibodies normal, then plan for colonoscopy - if colonoscopy normal, then plan for Rifaximin - advised patient to see dermatology - RTC in 6 months Healthcare maintenance: - Live vaccines should generally be avoided (eg. Zoster/Shingles) - Influenza vaccine: recommend annually - Prevnar (PCV-13) vaccine: If not already received, then followed 8weeks later with PPSV-23 - Pneumovax (PPSV-23) vaccine: as above, due for booster 5 years after; and again at age 65 - Hepatitis A: - Hepatitis B: immune - HPV vaccine: recommend f/u with PCP if not already done - TB status: quantiferon gold - 04/24/18 negative - Colon cancer screening: last colonoscopy 2018, dysplasia surveillance colonoscopy due 8 years from time of diagnosis - Cervical cancer: counseled. F/u with primary provider for routine screening - Skin cancer: counseled. F/u with primary provider or dermatology for annual skin exams - Bone density: DEXA 10/2019 normal. Repeat in 2022 - Smoking status: non-smoker Return in about 6 months (around 04/29/2021). The patient was seen with Dr. Arzate. Please see their addendum for further details and additional recommendations. ICD-10-CM 1. Crohn's disease of small intestine without complication K50.00 COMPREHENSIVE METABOLIC PANEL VITAMIN D (25-HYDROXY,TOTAL) FOLATE, SERUM VITAMIN B12 FERRITIN IRON/IRON BINDING/TRANSFERRIN ZINC, SERUM C REACTIVE PROTEIN CBC,PLATELETS SEDIMENTATION RATE, AUTOMATED C DIFFICILE BY PCR (CLOSTRIDIUM DIFFICILE TOXIN) MOLECULAR STOOL PARASITE PANEL 2. Lower abdominal pain R10.30 3. Nausea R11.0 4. Diarrhea, unspecified type R19.7 C DIFFICILE BY PCR (CLOSTRIDIUM DIFFICILE TOXIN) MOLECULAR STOOL PARASITE PANEL Star Cook MD Division of Gastroenterology, Hepatology, and Nutrition Clinical Fellow PGY-4 Pager: [phone] documented in this encounter [facility] 10-27-2020 Instructions Star Cook MD - 10/27/2020 10:00 AM EDT - get labs done - check Inflectra levels and antibodies before next infusion - if these tests are normal then we will plan for a colonoscopy documented in this encounter [facility] Diagnosis Crohn's disease of small intestine without complication- Primary Regional enteritis of small intestine [facility] Diagnosis Crohn's disease of small intestine without complication- Primary Regional enteritis of small intestine [facility] Crohn's disease of small intestine without complication- Primary Regional enteritis of small intestine [facility] Diagnosis Crohn's disease of small intestine without complication- Primary Regional enteritis of small intestine Abnormal LFTs Other abnormal blood chemistry [facility] Diagnosis Crohn's disease of small intestine without complication- Primary Regional enteritis of small intestine [facility] Diagnosis Crohn's disease of small intestine without complication- Primary Regional enteritis of small intestine Abnormal LFTs Other abnormal blood chemistry [facility] Diagnosis Liver disease- Primary Unspecified disorder of liver Fatty liver Other chronic nonalcoholic liver disease [facility] Liver disease- Primary Unspecified disorder of liver [facility] Diagnosis Crohn's disease of small intestine without complication- Primary Regional enteritis of small intestine Diarrhea, unspecified type Irritable bowel syndrome with diarrhea Irritable bowel syndrome [facility] Cirrhosis of liver without ascites, unspecified hepatic cirrhosis type [facility] Diagnosis Cirrhosis of liver without ascites, unspecified hepatic cirrhosis type- Primary Transient alteration of awareness [facility] Diagnosis Crohn's disease of small intestine without complication- Primary Regional enteritis of small intestine Cirrhosis of liver without ascites, unspecified hepatic cirrhosis type Transient alteration of awareness [facility] Diagnosis Crohn's disease of small intestine without complication- Primary Regional enteritis of small intestine [facility] Diagnosis Crohn's disease of small and large intestines with complication [facility] Diagnosis Cirrhosis of liver without ascites, unspecified hepatic cirrhosis type- Primary documented in this encounter [facility] Summary Purpose Family History No Family History Records FoundNo Family History Records Found Advance Directives No Advanced Directives Records FoundLatest Code Status on File Code Status Date Activated Date Inactivated Comments Full Code 03/22/2016 12:27 PM 03/28/2016 2:42 PM Latest Code Status on File Code Status Date Activated Date Inactivated Comments Full Code 03/22/2016 12:27 PM 03/28/2016 2:42 PM Latest Code Status on File Code Status Date Activated Date Inactivated Comments Full Code 03/22/2016 12:27 PM 03/28/2016 2:42 PM Reason for Referral Specialty Diagnoses / Procedures Referred By Contac t Referred To Contact Diagnoses Liver disease Procedures US IMAGING TRANSIENT ELASTOGRAPHY Michelle Marr APRN-LITHOGRAPHED PLATE INSPECTOR [address] [place] [phone] Referral ID Status Reason Start Date Expiration Date V isits Requested Visits Authorized [id number] New Request 04/18/2022 05/13/2023 1 1 Specialty Diagnoses / Procedures Referred By Contac t Referred To Contact Diagnoses Liver disease Procedures TRANSIENT ELASTOGRAPHY Michelle Marr APRN-CNP [address] [place] [phone] Referral ID Status Reason Start Date Expiration Date V isits Requested Visits Authorized [id number] New Request 04/18/2022 05/13/2023 1 1 Specialty Diagnoses / Procedures Referred By Contac t Referred To Contact Diagnoses Cirrhosis of liver without ascites, unspecified hepatic cirrhosis type Procedures DIAGNOSTIC UPPER ENDOSCOPY GA ESOPHAGOGASTRODUODENOSCOPY TRANSORAL DIAGNOSTIC Michelle Marr APRN-LITHOGRAPHED PLATE INSPECTOR [address] [place] [phone] Referral ID Status Reason Start Date Expiration Date V isits Requested Visits Authorized [id number] New Request 05/24/2022 06/18/2023 1 1 Specialty Diagnoses / Procedures Referred By Contac t Referred To Contact Diagnoses Transient alteration of awareness Procedures CT HEAD WITHOUT CONTRAST GA CT SCAN,HEAD/BRAIN,W/O CONTRAST Kb Fam MD [address] [facility] [address] [place] [address] Referral ID Status Reason Start Date Expiration Date V isits Requested Visits Authorized [id number] Auth Not Needed 07/22/2022 08/16/2023 1 1 Specialty Diagnoses / Procedures Referred By Contac t Referred To Contact Diagnoses Cirrhosis of liver without ascites, unspecified hepatic cirrhosis type Procedures US ABDOMEN RUQ/LIVER/GB Kb Conklin MD [address] [place] [address] Referral ID Status Reason Start Date Expiration Date V isits Requested Visits Authorized [id number] New Request 07/22/2022 08/16/2023 1 1 Specialty Diagnoses / Procedures Referred By Contac t Referred To Contact Diagnoses Crohn's disease of small and large intestines with complication Procedures DIAGNOSTIC COLONOSCOPY GA COLONOSCOPY STOMA DX INCLUDING COLLJ SPEC SPX Carolyn Arzate MD [address] [phone] Referral ID Status Reason Start Date Expiration Date Visits Re quested Visits Authorized [id number] Closed 10/11/2022 11/05/2023 1 1 Specialty Diagnoses / Procedures Referred By Contac t Referred To Contact Diagnoses Cirrhosis of liver without ascites, unspecified hepatic cirrhosis type Procedures US ABDOMEN RUQ/LIVER/GB Michelle Marr, ADELE-LITHOGRAPHED PLATE INSPECTOR [address] [place] [phone] Referral ID Status Reason Start Date Expiration Date V isits Requested Visits Authorized [id number] New Request 02/10/2023 03/06/2024 1 1 Additional Source Comments INFORMATION SOURCE (unrecogn ized section and content) DATE CREATED AUTHOR AUTHOR'S ORGANIZ ATION 02/14/2023 [facility] Reason for Visit (unrecogniz ed section and content) Specialty Diagnoses / Procedures Referred By Contac t Referred To Contact Diagnoses Crohn's disease of small intestine without complication Carolyn Arzate MD [address] [phone] Infusion [address] [place] [address] Referral ID Status Reason Start Date Expiration Date Visits Requested Visits Authorized [id number] Authorized - 05/04/2021 100 126 Reason Comments Infusion Visit Rapid Remicade Reason Comments Infusion Visit Rapid Inflectra Reason Comments Infusion Visit Rapid Inflectra Referral ID Status Reason Start Date Expiration Date Visits Requested Visits Authorized [id number] Authorized - 05/04/2021 100 113 Reason Comments Follow-up Inflammatory Bowel Disease Reason Comments New Patient Elevated Liver Enzymes Specialty Diagnoses / Procedures Referred By Eduac t Referred To Contact Gastroenterology Diagnoses Abnormal abdominal ultrasound Abnormal LFTs Carolyn Arzate MD [address] [phone] Referral ID Status Reason Start Date Expiration Date V isits Requested Visits Authorized [id number] New Request 02/08/2022 03/05/2023 1 1 Reason Comments Consult Fibroscan Specialty Diagnoses / Procedures Referred By Contac t Referred To Contact Diagnoses Liver disease Procedures TRANSIENT ELASTOGRAPHY Michelle Marr APRNLITHOGRAPHED PLATE INSPECTOR [address] [place] [phone] Referral ID Status Reason Start Date Expiration Date V isits Requested Visits Authorized [id number] New Request 04/18/2022 05/13/2023 1 1 Reason Comments Follow-up Specialty Diagnoses / Procedures Referred By Contac t Referred To Contact Diagnoses Cirrhosis of liver without ascites, unspecified hepatic cirrhosis type Procedures DIAGNOSTIC UPPER ENDOSCOPY GA ESOPHAGOGASTRODUODENOSCOPY TRANSORAL DIAGNOSTIC Michelle Marr APRN-LITHOGRAPHED PLATE INSPECTOR [address] [place] [address] [id number] Referral ID Status Reason Start Date Expiration Date V isits Requested Visits Authorized [id number] New Request 05/24/2022 06/18/2023 1 1 Reason Comments New Patient Patient states she i s here to discuss her liver. Specialty Diagnoses / Procedures Referred By Contac t Referred To Contact Diagnoses Crohn's disease of small and large intestines with complication Procedures DIAGNOSTIC COLONOSCOPY GA COLONOSCOPY STOMA DX INCLUDING COLLJ SPEC SPX Carolyn Arzate MD [address] [phone] Referral ID Status Reason Start Date Expiration Date Visits Re quested Visits Authorized [id number] Closed 10/11/2022 11/05/2023 1 1 Referral ID Status Reason Start Date Expiration Date Visits Requested Visits Authorized [id number] Authorized - 10/18/2022 100 101 Reason Comments Follow-up Cirrhosis Care Teams (unrecognized sec tion and content) Animal Rehabilitator Relationship Specialty Start Date End Date Lindsey Bain MD [address] [address] PCP - General Family Medicine 10/27/20 Carolyn Arzate MD [address] [address] Heart Surgeon Gastroenterology 12/04/18 Animal Rehabilitator Relationship Specialty Start Date End Date Lindsey Bain MD [address] [place] [address] PCP - General Family Medicine 10/27/20 Carolyn Arzate MD [address] [address] Heart Surgeon Gastroenterology 12/04/18 Animal Rehabilitator Relationship Specialty Start Date End Date Lindsey Bain MD [address] [place] [address] PCP - General Family Medicine 10/27/20 Carolyn Arzate MD [address] [address] Heart Surgeon Gastroenterology 12/04/18 Animal Rehabilitator Relationship Specialty Start Date End Date Lindsey Bain MD [address] [place] [phone] PCP - General Family Medicine 10/27/20 Carolyn Arzate MD [address] [address] Heart Surgeon Gastroenterology 12/04/18 Animal Rehabilitator Relationship Specialty Start Date End Date Lindsey Bain MD [address] [place] [place] [phone] PCP - General Family Medicine 10/27/20 Carolyn Arzate MD [address] [address] Heart Surgeon Gastroenterology 12/04/18 Animal Rehabilitator Relationship Specialty Start Date End Date Lindsey Bain MD [address] [place] [place] [phone] PCP - General Family Medicine 10/27/20 Carolyn Arzate MD [address] [address] Heart Surgeon Gastroenterology 12/04/18 Animal Rehabilitator Relationship Specialty Start Date End Date Lindsey Bain MD [address] [place] [phone] PCP - General Family Medicine 10/27/20 Carolyn Arzate MD [address] [address] Heart Surgeon Gastroenterology 12/04/18 Animal Rehabilitator Relationship Specialty Start Date End Date Lindsey Bain MD [address] [place] [phone] PCP - General Family Medicine 10/27/20 Carolyn Arzate MD [address] [place] [phone] Heart Surgeon Gastroenterology 12/04/18 Animal Rehabilitator Relationship Specialty Start Date End Date Lindsey Bain MD [address] [place], [phone] PCP - General Family Medicine 10/27/20 Carolyn Arzate MD [address] [phone] Heart Surgeon Gastroenterology 12/04/18 Animal Rehabilitator Relationship Specialty Start Date End Date Lindsey Bain MD [address] [place], [phone] PCP - General Family Medicine 10/27/20 Carolyn Arzate MD [address] [place] [address], [place] [address] Heart Surgeon Gastroenterology 12/04/18 Animal Rehabilitator Relationship Specialty Start Date End Date Lindsey Bain MD [address] [place] [place] [phone] PCP - General Family Medicine 10/27/20 Carolyn Arzate MD [address] [place] [address] [address] Heart Surgeon Gastroenterology 12/04/18 Animal Rehabilitator Relationship Specialty Start Date End Date Brett Carrillo MD [address] [place] [phone] PCP - General Internal Medicine 12/30/22 Carolyn Arzate MD [address] [facility] [address] [place] [address] Heart Surgeon Gastroenterology 12/04/18 FOR RECORDS PERTAINING TO PATIENTS WHO ARE OR HAVE BEEN ENROLLED IN A CHEMICAL DEPENDENCY/SUBSTANCEABUSE PROGRAM, SOME INFORMATION MAY BE OMITTED. This clinical summary was aggregated from multiple sources. Caution should be exercised in using it in the provision of clinical care. This summary normalizes information from multiple sources, and as a consequence, information in this document may materially change the coding, format and clinical context of patient data. In addition, data may be omitted in some cases. CLINICAL DECISIONS SHOULD BE BASED ON THE PRIMARY CLINICAL RECORDS. [employer] [facility]. provides no warranty or guarantee of the accuracy or completeness of information in this document.
[2023-04-04 17:26] LABS: Absolute Lymphocyte Count 1.72 X10^3/uL (0.83-4.51); Absolute Neutrophil Count 2.2 X10^3/uL (2.0-7.7); Basophil# 0.02 X10^3/uL; Basophil% 0.5 % (0-1); Eosinophil# 0.05 X10^3/uL; Eosinophils% 1.1 % (0-5); Hematocrit 38.8 % (37-47); Hemoglobin 12.6 g/dL (12.0-15.0); Lymphocyte # 1.72 X10^3/ul (0.83-4.51); Lymphocyte % 39.2 % (19-41); Mean Corp Hgb Conc 32.5 g/dL (32-36); Mean Corpuscular Hgb 29.3 pg (27.0-32.0); Mean Corpuscular Volume 90.2 fL (81-99); Mean Platelet Vol. 10.9 fl (6.2-12.0); Monocyte# 0.45 X10^3/uL; Monocyte% 10.3 % (0-10); NRBC Flagged by Analyzer 0 % (0-5); Neutrophil # 2.15 X10^3/uL (2.7-7.7); Neutrophil % 48.9 % (47-70); Platelet Count 128 K/mm3 (150-450); RBC Distribution Width CV 13.2 % (11.6-14.6); RBC Distribution Width SD 42.9 fl (35.1-43.9); White Blood Count 4.4 K/mm3 (4.4-11.0)
[2023-04-04 17:59] LABS: HIV - WCH Non-Reactive (Nonreactive); Vitamin B12 389 pg/mL (211-911)
[2023-04-06 07:08] LABS: Haptoglobin 69 mg/dL (42-296)
== END | disposition home or self-care (01) ==
PROVIDERS: PCP Internal Medicine; Referring Provider Student in an Organized Health Care Education/Training Program; Visit Provider Student in an Organized Health Care Education/Training Program
DX: D69.6 Thrombocytopenia, unspecified (principal)
CPT/HCPCS: 36415; 82607; 82746; 83010; 85025; 86703; 86880

== ENCOUNTER → 2023-07-04 | Outpatient (CLI) | payer OTHER, SELFPAY ==
[2023-07-10 18:08] LABS: Calprotectin, Stool 10 ug/g (0-120)
== END | disposition home or self-care (01) ==
LOC: LAB 16:41
PROVIDERS: PCP Internal Medicine; Referring Provider Internal Medicine; Visit Provider Internal Medicine
DX: R19.7 Diarrhea, unspecified (principal)
CPT/HCPCS: 83993; 87177; 87209; 87493; 87506

== ENCOUNTER → 2023-07-29 | Outpatient (CLI) | payer OTHER, SELFPAY ==
--- NOTE | 2023-07-29 07:57 | US_ITS ---
STUDY: ABDOMINAL ULTRASOUND - RIGHT UPPER QUADRANT REASON FOR VISIT: Female, 47 years old CIRRHOSIS TECHNIQUE: Ultrasound evaluation of the right upper quadrant was performed with real-time and static corral-scale imaging. TECHNICAL QUALITY: Adequate. COMPARISON: Comparison is made with prior study dated February 17, 2023. FINDINGS: Liver: The liver is enlarged and measures 18.7 cm. There is increased echogenicity consistent with fatty infiltration. The bile ducts are within normal limits. There is hepatic color flow. The direction of portal flow is hepatopetal. There is no demonstrated mass lesion. Gallbladder: The patient is status post cholecystectomy. Common Bile Duct (C.B.D.): The common bile duct measures 11.5 mm. Pancreas: Normal size of the head, body and tail of the pancreas. There is increased echogenicity of the pancreas. There is no demonstrated pancreatic mass or cyst. Right Kidney: Normal size of the right kidney. The right kidney measures 12.5 cm x 4.3 cm x 6.3 cm. Normal renal cortex. The right cortex measures 1 cm. There is no demonstrated renal mass or cyst. There is no right hydronephrosis. Multiple nonobstructive intrarenal calculi suggestive of medullary sponge kidney. US/Abdomen Limited IMPRESSION: Hepatomegaly and fatty infiltration of the liver. 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 Electronically Signed: Greg Reeder MD at 10:16 EDT ,
== END | disposition home or self-care (01) ==
PROVIDERS: PCP Internal Medicine
DX: K74.60 Unspecified cirrhosis of liver (principal)
CPT/HCPCS: 76705

== ENCOUNTER → 2023-11-03 | Outpatient (CLI) | payer OTHER, SELFPAY ==
[2023-11-03 14:58] LABS: Absolute Lymphocyte Count 2.41 X10^3/uL (0.83-4.51); Absolute Neutrophil Count 2.7 X10^3/uL (2.0-7.7); Basophil# 0.03 X10^3/uL; Basophil% 0.5 % (0-1); Eosinophil# 0.12 X10^3/uL; Hematocrit 40.4 % (37-47); Hemoglobin 13.1 g/dL (12.0-15.0); Lymphocyte # 2.41 X10^3/ul (0.83-4.51); Lymphocyte % 41.1 % (19-41); Mean Corp Hgb Conc 32.4 g/dL (32-36); Mean Corpuscular Hgb 29.4 pg (27.0-32.0); Mean Corpuscular Volume 90.6 fL (81-99); Mean Platelet Vol. 11.6 fl (6.2-12.0); Monocyte# 0.59 X10^3/uL; Monocyte% 10.1 % (0-10); NRBC Flagged by Analyzer 0 % (0-5); Platelet Count 131 K/mm3 (150-450); RBC Distribution Width CV 13.2 % (11.6-14.6); RBC Distribution Width SD 43.6 fl (35.1-43.9); Red Blood Count 4.46 M/mm3 (4.2-5.4); White Blood Count 5.9 K/mm3 (4.4-11.0)
[2023-11-03 16:07] LABS: AST(SGOT) 45 U/L (15-37); Alanine Aminotransfer ALT/SGPT 55 U/L (13-56); Albumin, Serum 3.9 g/dL (3.2-5.0); Alkaline Phosphatase 93 U/L (45-117); Anion Gap 8 (5-15); BUN 12 mg/dL (7-18); BUN/Creat Ratio 13.8 RATIO (10-20); Calcium,Total 9.4 mg/dL (8.5-10.1); Chloride 106 mmol/L (98-107); Cholesterol 311 mg/dL (200); Creatinine, Serum 0.87 mg/dL (0.55-1.02); EST Glomerular Filtration Rate 74 mL/min (>60); Est Glom Filt Rate - Afr Amer 89 mL/min (>60); Glucose 95 mg/dL (74-106); High Density Lipoprotein 57 mg/dL; Potassium 3.9 mmol/L (3.5-5.1); Protein, Total 7.9 g/dL (6.4-8.2); Sodium Level 138 mmol/L (136-145); Triglycerides 659 mg/dL
== END | disposition home or self-care (01) ==
LOC: LAB 13:37
PROVIDERS: PCP Internal Medicine; Referring Provider Internal Medicine; Visit Provider Internal Medicine
DX: E78.2 Mixed hyperlipidemia (principal); R51.9 Headache, unspecified; F51.04 Psychophysiologic insomnia
CPT/HCPCS: 36415; 80053; 80061; 85025

== ENCOUNTER → 2023-12-24 | Outpatient (CLI) | payer OTHER, SELFPAY ==
[2023-12-27 06:09] LABS: Calprotectin, Stool 13 ug/g (0-120)
== END | disposition home or self-care (01) ==
PROVIDERS: PCP Internal Medicine
DX: K50.00 Crohn's disease of small intestine without complications (principal); R19.7 Diarrhea, unspecified
CPT/HCPCS: 83993; 87493; 87506

== ENCOUNTER → 2024-05-07 | Outpatient (CLI) | payer OTHER, SELFPAY ==
[2024-05-07 15:21] LABS: Absolute Lymphocyte Count 2.58 X10^3/uL (0.83-4.51); Absolute Neutrophil Count 3.1 X10^3/uL (2.0-7.7); Basophil# 0.03 X10^3/uL; Basophil% 0.5 % (0-1); Eosinophil# 0.12 X10^3/uL; Eosinophils% 1.9 % (0-5); Hematocrit 40.9 % (37-47); Hemoglobin 13.4 g/dL (12.0-15.0); Lymphocyte # 2.58 X10^3/ul (0.83-4.51); Lymphocyte % 40.8 % (19-41); Mean Corp Hgb Conc 32.8 g/dL (32-36); Mean Corpuscular Hgb 29.4 pg (27.0-32.0); Mean Corpuscular Volume 89.7 fL (81-99); Mean Platelet Vol. 11.7 fl (6.2-12.0); Monocyte# 0.53 X10^3/uL; Monocyte% 8.4 % (0-10); NRBC Flagged by Analyzer 0 % (0-5); Neutrophil # 3.05 X10^3/uL (2.7-7.7); Neutrophil % 48.2 % (47-70); Platelet Count 158 K/mm3 (150-450); RBC Distribution Width CV 12.9 % (11.6-14.6); RBC Distribution Width SD 42.4 fl (35.1-43.9); Red Blood Count 4.56 M/mm3 (4.2-5.4); White Blood Count 6.3 K/mm3 (4.4-11.0)
[2024-05-07 15:42] LABS: Vitamin B12 346 pg/mL (211-911)
[2024-05-07 16:18] LABS: AST(SGOT) 39 U/L (15-37); Alanine Aminotransfer ALT/SGPT 46 U/L (13-56); Albumin, Serum 3.8 g/dL (3.2-5.0); Alkaline Phosphatase 96 U/L (45-117); Anion Gap 8 (5-15); BUN 11 mg/dL (7-18); BUN/Creat Ratio 11.8 RATIO (10-20); CRP < 2.90 mg/L (0.0-3.0); Calcium,Total 9.4 mg/dL (8.5-10.1); Chloride 109 mmol/L (98-107); Creatinine, Serum 0.93 mg/dL (0.55-1.02); EST Glomerular Filtration Rate 68 mL/min (>60); Est Glom Filt Rate - Afr Amer 82 mL/min (>60); Ferritin 340 ng/mL (8-252); Globulin 3.9 g/dL (2.2-4.2); Glucose 94 mg/dL (74-106); Iron Binding Capacity,Total 338 ug/dL (250-450); Potassium 3.7 mmol/L (3.5-5.1); Protein, Total 7.7 g/dL (6.4-8.2); Sodium Level 140 mmol/L (136-145)
[2024-05-08 07:01] LABS: Iron 102 ug/dL (50-170)
[2024-05-08 12:54] LABS: Cholesterol 196 mg/dL (200); High Density Lipoprotein 57 mg/dL; Triglycerides 326 mg/dL; Very Low Density Lipoprotein 65 mg/dL (5-40)
[2024-05-11 11:08] LABS: QNTFERON TB Mitogen Value > 10.00 IU/mL (.); QNTFERON TB Nil Value 0.01 IU/mL (.); QNTFERON TB1+ Ag Value 0.01 IU/mL (.); QNTFERON TB2+ Ag Value 0.01 IU/mL (.); QNTIFERON TB Positive Criteria Negative (Negative); Transferrin 291 mg/dL (192-364)
[2024-05-14 09:08] LABS: Methylmalonic Acid Bld 193 nmol/L (0-378)
== END | disposition home or self-care (01) ==
PROVIDERS: PCP Internal Medicine
DX: K50.00 Crohn's disease of small intestine without complications (principal)
CPT/HCPCS: 36415; 80053; 80061; 82607; 82728; 83540; 83550; 83921; 84466; 85025; 86140; 86480